=== PATIENT | female | born 1940 | race Caucasian/White ===

== ENCOUNTER → 2017-03-18 | Outpatient (CLI) | payer MEDICARE, SELFPAY | PROVIDERS: Visit Provider Nurse Practitioner Family | DX: K57.92 Diverticulitis of intestine, part unspecified, without perforation or abscess without bleeding (principal); Z45.2 Encounter for adjustment and management of vascular access device | CPT/HCPCS: 96365; J1335 ==

== ENCOUNTER → 2018-08-23 08:05 | Outpatient (CLI) | payer MEDICARE, SELFPAY ==
--- NOTE | 2018-08-23 | CA_ITS ---
PROCEDURE: 2-D M-mode and color Doppler study INDICATIONS FOR THE TEST: Chest pain COPD Heart Murmur Tobacco Smoking Palpitations+ Fatigue Syncope Edema Hypertension+Diabetes Mellitus Rheumatic Fever SOB+TYLER Obesity Hyperlipidemia+ Family History HD Additional History PATIENT INFORMATION HEIGHT:60 WEIGHT:135 GENDER: Female B/P:120/60 2-D/M-MODE INTERPRETATION: 2-D MEASUREMENTS OBSERVED VALUES IN CMS Right Ventricular Dimension (RVDd) 1.5 Interventricular Septum (Thickness)(IVsd) 1.6 Left Ventricular Internal Dimensions(LVIDd) 4.5 Left Ventricular Posterior Wall (Thickness)(LVPWd) 1.4 Aortic Root 3.3 Aortic Cusp Separation 1.6 Left Atrial Dimensions (LAD) 5.3 2D 1. Left atrium is moderately enlarged, left ventricle is normal size, there is moderate concentric left ventricular hypertrophy, there is mild asymmetric hypertrophy of the basal septum seen. There is hyperdynamic left ventricular systolic function, visually estimated ejection fraction of 60-65%, there is complete cavity obliteration during systole. 2. The right atrium and right ventricle are normal size and contractility. 3. The aortic valve is thickened and calcified leaflet continue to display mobility. 4. The mitral valve has mitral annular calcification, which extends and both anterior and posterior mitral leaflet, there appears to be mild systolic atrium motion of the mitral valve leaflets seen. 5. The tricuspid valve is grossly normal. 6. The pulmonic valve is poorly visualized. DOPPLER INTERROGATION: 1. The aortic out flow velocity is corrupted by mitral regurgitation segmental, there appears to be dynamic obstruction of the left ventricle outflow tract, the degree of obstruction cannot be calculated from this study adequately. There is moderate aortic insufficiency seen. 2. The mitral inflow velocities is within normal range, there is no significant mitral stenosis, there is mitral regurgitation which is difficult to quantify it is likely in severe range. 3. There is mild tricuspid regurgitation noted, tricuspid regurgitation jet velocity is inadequate for calculation of the right ventricular systolic pressure. 4. The diastolic parameters are inconclusive. CONCLUSION: 1. Moderately enlarged left atrium, normal left ventricular size, moderate concentric left ventricular hypertrophy, there is mild asymmetric hypertrophy of the basal septum seen, hyperdynamic left ventricular systolic function, visually estimated ejection fraction approximately 60-65% with no regional wall motion abnormality, there
--- NOTE | 2018-08-23 08:34 | XR_ITS ---
XR chest 2V HISTORY: ITS.REASON: SYNCOPE , HEART MURMUR ORDERING PHYSICIAN: Lm Bustillo MD PATIENT AGE: 78 years COMPARISON: 03/14/2017 FINDINGS: Mild cardiomegaly without failure. Lungs are clear of acute infiltrate. Slight increased density is present in the anterior clear space inferiorly and may be due to summation artifact from overlying fat pad. No acute bony findings. IMPRESSION: Cardiomegaly, no change with no acute finding.
[2018-08-23 08:35] LABS: Basophils # 0.1 K/mm3 (0-0.2); Basophils % 1.1 % (0.1-2.0); Eosinophils # 0.4 K/mm3 (0.0-0.4); Eosinophils % 6.7 % (0.1-12.0); Hematocrit 35.5 % (37.0-47.0); Lymphocytes % 37.8 % (10-50); Mean Corpuscular HGB Conc 33.8 g/dL (31.8-35.4); Mean Corpuscular Hemoglobin 30.6 pg (27.0-31.2); Mean Corpuscular Volume 90.5 fl (81-99); Mean Platelet Volume 7.1 fl (7.4-10.4); Monocytes # 0.5 K/mm3 (0.1-1.0); Monocytes % 8.9 % (1.7-9.3); Neutrophils # 2.4 K/mm3 (1.8-7.8); Neutrophils % 45.6 % (37.0-80.0); Platelet Count 269 K/mm3 (142-424); Red Blood Count 3.92 M/mm3 (4.20-5.40); Red Cell Distribution Width 14.4 % (11.5-17.5); White Blood Count 5.2 K/mm3 (4.8-10.8)
[2018-08-23 10:00] LABS: Alanine Aminotransferase 17 U/L (12-78); Albumin Level 3.4 gm/dL (3.4-5.0); Albumin/Globulin Ratio 0.8 (1.1-1.8); Alkaline Phosphatase 87 U/L (46-116); Anion Gap 14.6 mEq/L (5-15); Aspartate Amino Transferase 18 U/L (15-37); Bilirubin,Total 0.8 mg/dL (0.2-1.0); Blood Urea Nitrogen 25 mg/dL (7-18); Calcium 9.4 mg/dL (8.5-10.1); Carbon Dioxide 26 mmol/L (21.0-32.0); Chloride 105 mmol/L (98-107); Chol/HDL Ratio 3.6 (1-3.5); Cholesterol 254 mg/dL (140-200); Creatinine,Serum 0.83 mg/dL (0.55-1.02); Estimated Glomerular Filt Rate 67 ml/min (>60); Free Thyroxine Index 3.4 ug/dL (5.93-13.13); GFR (African American) 81 ML/MIN (>60); Globulin 4.2 gm/dl (1.3-3.2); Glucose 94 mg/dL (74-106); HDL Cholesterol 70 mg/dL (29-89); LDL Cholesterol 170 mg/dL (0-130); Magnesium 1.8 mg/dL (1.4-2.2); Potassium 3.6 mmoL/L (3.5-5.1); Sodium 142 mmol/L (136-145); T4 (Thyroxine) 9.6 ug/dl (4.7-13.3); Thyroid Stimulating Hormone 7.12 uIU/ml (0.358-3.740); Total Protein,Serum 7.6 gm/dL (6.4-8.2); Triglycerides 69 mg/dL (30-200); Triiodothryronine (T3) Uptake 35 % (31-39); VLDL Cholesterol 14 mg/dL (0-40)
== END ==
PROVIDERS: PCP Internal Medicine Adolescent Medicine; Visit Provider Internal Medicine Adolescent Medicine
DX: R55 Syncope and collapse (principal); R01.1 Cardiac murmur, unspecified; E78.5 Hyperlipidemia, unspecified; E03.9 Hypothyroidism, unspecified
CPT/HCPCS: 36415; 71046; 80053; 80061; 83735; 84436; 84443; 84479; 85025; 93306

== ENCOUNTER → 2018-09-10 20:04 | Outpatient (CLI) | payer MEDICARE, SELFPAY | LOC: SL 20:06 | PROVIDERS: PCP Internal Medicine Adolescent Medicine; Visit Provider Internal Medicine Cardiovascular Disease | DX: G47.33 Obstructive sleep apnea (adult) (pediatric) (principal); I10 Essential (primary) hypertension; R06.83 Snoring | CPT/HCPCS: 95810 ==

== ENCOUNTER → 2018-09-12 09:48 | Outpatient (CLI) | payer MEDICARE, SELFPAY | PROVIDERS: PCP Internal Medicine Adolescent Medicine; Visit Provider Internal Medicine Cardiovascular Disease | DX: E78.5 Hyperlipidemia, unspecified (principal); I10 Essential (primary) hypertension; I34.0 Nonrheumatic mitral (valve) insufficiency; I35.1 Nonrheumatic aortic (valve) insufficiency; R01.1 Cardiac murmur, unspecified; R06.09 Other forms of dyspnea; R55 Syncope and collapse; R93.1 Abnormal findings on diagnostic imaging of heart and coronary circulation; R94.31 Abnormal electrocardiogram [ECG] [EKG]; Z82.49 Family history of ischemic heart disease and other diseases of the circulatory system | CPT/HCPCS: 93225; 93226 ==

== ENCOUNTER → 2018-09-14 06:21 | Outpatient (CLI) | payer MEDICARE, SELFPAY ==
--- NOTE | 2018-09-14 06:23 | NM_ITS ---
NM ankush perf SPECT rest str CARDIOLITE SPECT MYOCARDIAL PERFUSION LEXISCAN, REST AND STRESS: History: Procedure: Electrocardiogram: Cardiac stress and resting SPECT images: Conclusion: 1. NM ankush perf SPECT rest str CARDIOLITE SPECT MYOCARDIAL PERFUSION LEXISCAN, REST AND STRESS: History: Hypertension, hyperlipidemia, family history, shortness of breath and fatigue Procedure: Patient received a 0.4 mg of intravenous Lexiscan, resting heart rate was 69 bpm resting blood pressure 180/78, with Lexiscan maximum heart rate achieved was 91 bpm is less than 85% of the maximum predicted heart rate and a blood pressure was 178/86. With Lexiscan no symptoms recorded Electrocardiogram: Resting electrocardiogram showed sinus rhythm inferior and lateral ST-T changes consider ischemia versus strain pattern, with Lexiscan less than 1.[address] segment depression noted from the baseline EKG, the EKG portion of the Lexiscan Myoview is nondiagnostic. Cardiac stress and resting SPECT images: Cardiac stress and resting SPECT images were obtained using technetium 99 Myoview 32.1 mCi at stress and 10.5 mCi at gated SPECT further analysis of segmental wall motion and calculation of the ejection fraction also done. Cardiac stress and resting SPECT images show uniform myocardial activity without segmental perfusion abnormality, computer derived ejection fraction is over 65% with no regional wall motion abnormality, right ventricle is normal size and contractility. Conclusion: 1. The EKG portion of the Lexiscan Myoview is nondiagnostic. 2. No scintigraphic evidence of reversible ischemia seen, right ejection fraction is over 65% with no regional wall motion abnormality, right ventricle is normal size and contractility. 3. Normal Lexiscan Myoview study.
== END ==
LOC: RAD 06:21
PROVIDERS: PCP Internal Medicine Adolescent Medicine; Visit Provider Internal Medicine Cardiovascular Disease
DX: E78.5 Hyperlipidemia, unspecified (principal); I10 Essential (primary) hypertension; I34.0 Nonrheumatic mitral (valve) insufficiency; I35.1 Nonrheumatic aortic (valve) insufficiency; R01.1 Cardiac murmur, unspecified; R06.09 Other forms of dyspnea; R55 Syncope and collapse; R93.1 Abnormal findings on diagnostic imaging of heart and coronary circulation; R94.31 Abnormal electrocardiogram [ECG] [EKG]; Z82.49 Family history of ischemic heart disease and other diseases of the circulatory system
CPT/HCPCS: 78452; 93017; A9502; J2785

== ENCOUNTER 2018-10-02 07:56 | Day surgery (SDC) | payer MEDICARE, SELFPAY ==
[2018-10-02] VITALS (10 sets, daily range): BP systolic 119–176; BP diastolic 48–93; PULSE 62–96; RESP 16–20; TEMP 36.4; O2SAT 94–100; BMI 26.5
[2018-10-02 08:34] LABS: Basophils # 0.1 K/mm3 (0-0.2); Basophils % 1.2 % (0.1-2.0); Eosinophils # 0.4 K/mm3 (0.0-0.4); Eosinophils % 7.5 % (0.1-12.0); Hematocrit 36.5 % (37.0-47.0); Hemoglobin 12.6 g/dL (12.2-16.2); Lymphocytes # 1.6 K/mm3 (0.7-4.5); Lymphocytes % 29.5 % (10-50); Mean Corpuscular HGB Conc 34.6 g/dL (31.8-35.4); Mean Corpuscular Hemoglobin 31.4 pg (27.0-31.2); Mean Corpuscular Volume 90.9 fl (81-99); Mean Platelet Volume 7.4 fl (7.4-10.4); Monocytes # 0.5 K/mm3 (0.1-1.0); Monocytes % 8.4 % (1.7-9.3); Neutrophils # 2.9 K/mm3 (1.8-7.8); Neutrophils % 53.3 % (37.0-80.0); Platelet Count 292 K/mm3 (142-424); Red Blood Count 4.02 M/mm3 (4.20-5.40); Red Cell Distribution Width 14.6 % (11.5-17.5); White Blood Count 5.4 K/mm3 (4.8-10.8)
[2018-10-02 08:38] LABS: Anion Gap 11.1 mEq/L (5-15); Blood Urea Nitrogen 13 mg/dL (7-18); Calcium 9.1 mg/dL (8.5-10.1); Carbon Dioxide 29 mmol/L (21.0-32.0); Chloride 102 mmol/L (98-107); Creatinine Clearance Estimated 46 mL/min (50-200); Creatinine,Serum 0.68 mg/dL (0.55-1.02); Estimated Glomerular Filt Rate 84 ml/min (>60); GFR (African American) 102 ML/MIN (>60); Glucose 100 mg/dL (74-106); Potassium 3.1 mmoL/L (3.5-5.1); Sodium 139 mmol/L (136-145)
--- NOTE | 2018-10-02 09:00 | IR_ITS ---
CARDIAC CATHETERIZATION DATE OF CATHETERIZATION:10/02/2018 11:04 AM PROCEDURES: 1. Right heart catheterization 2. Left heart catheterization 3. Left ventriculogram 4. Selective coronary angiogram INDICATION FOR TEST: 1. Severe mitral regurgitation 2. Preoperative evaluation for mitral valve repair 3. Coronary artery disease Informed consent was obtained prior to the procedure. COMPLICATIONS: None ESTIMATED BLOOD LOSS: Less than 10 ml. TECHNIQUE: One percent lidocaine was used to anesthetize the right anterior aspect of the right wrist. The right radial artery was accessed via the Seldinger technique and a 6 [place] hydrophilic sheath was placed in the right radial artery. Following this one percent lidocaine was used to anesthetize the right anterior aspect of the right neck. The right internal jugular vein was accessed via the Seldinger technique and a 7 [place] sheath was placed in the right internal jugular vein. Following this an arterial cocktail was administered using 5000U heparin, 2.5 mg verapamil, 1mg Lidocaine and 800mcg nitroglycerin into the right radial sheath. A trap catheter was used to perform left heart catheterization left ventriculogram and selective coronary angiography while a Ignacio-Sumeet catheter was used to perform right heart catheterization. Saturations were obtained in the pulmonary artery and right atrium. At the end of the procedure the arterial sheath was removed good hemostasis was achieved using Traclet band. Patient was transferred to the postop holding area in stable condition for venous sheath removal ANGIOGRAPHIC RESULTS: 1. The left main artery normal 2. The left anterior descending artery has proximal 10-20% stenoses and mid vessel 30-40% stenoses. 3. The circumflex artery is a dominant vessel and has proximal and mid vessel diffuse 20 and 30% stenoses throughout the main body of the circumflex artery. The second obtuse marginal artery has an ostial 50-60% stenosis and is 2.5 mm in diameter 4. The right coronary artery is a nondominant yet still large vessel and has a mid vessel 70-80% stenosis followed by additional 50% stenosis 5. The KIDD ventriculogram reveals slightly hyperdynamic at 70% 6. The left ventricular end-diastolic pressure 30 mmHg HEMODYNAMICS: Pulmonary artery occlusion pressure is 30 mm Hg. Pulmonary arterial pressure is 60/30 mm Hg. Right atrial pressure is 15 mm Hg. SATURATIONS: PA is 77 %. RA is 78 %. IMPRESSION: 1. Severe pulmonary hypertension as described above in the setting of severe mitral regurgitation 2. Moderate to severe stenosis and a 2.5 mm second obtuse marginal artery and severe stenosis in the mid nondominant yet still large right coronary artery 3. Hyperdynamic ejection fraction PLAN: 1. Patient requires surgical repair of the mitral valve. I will defer to the heart surgeon as to whether he feels vein grafting to the second OM and right coronary arteries clinically appropriate 2. Risk factor modification 3. Daily aspirin combined with high intensity statin
[2018-10-02 13:47] LABS: CATHL Arterial O2 SAT 77 % (90-100); CATHL Venous O2 SAT 78 % (75-80)
== END 2018-10-02 14:47 | disposition home or self-care (01) ==
PROVIDERS: PCP Internal Medicine Adolescent Medicine; Visit Provider Internal Medicine
DX: I34.0 Nonrheumatic mitral (valve) insufficiency (principal); I27.22 Pulmonary hypertension due to left heart disease; E78.2 Mixed hyperlipidemia; I10 Essential (primary) hypertension; R55 Syncope and collapse; R93.1 Abnormal findings on diagnostic imaging of heart and coronary circulation; R94.31 Abnormal electrocardiogram [ECG] [EKG]; Z82.49 Family history of ischemic heart disease and other diseases of the circulatory system; I25.10 Atherosclerotic heart disease of native coronary artery without angina pectoris; Z88.8 Allergy status to other drugs, medicaments and biological substances; Z79.899 Other long term (current) drug therapy
CPT/HCPCS: 80048; 82810; 85025; 93460; 99152; C1725; C1769; C1894; J1644; Q9967

== ENCOUNTER → 2018-11-27 09:20 | Outpatient (CLI) | payer MEDICARE, SELFPAY | PROVIDERS: Visit Provider Internal Medicine Adolescent Medicine | DX: S81.801A Unspecified open wound, right lower leg, initial encounter (principal) | CPT/HCPCS: 87070; 87077; 87186; 87205 ==

== ENCOUNTER → 2018-12-19 12:55 | Outpatient (CLI) | payer MEDICARE, SELFPAY ==
[2018-12-19 13:21] LABS: Anion Gap 8.8 mEq/L (5-15); Blood Urea Nitrogen 14 mg/dL (7-18); Calcium 8.5 mg/dL (8.5-10.1); Carbon Dioxide 31 mmol/L (21.0-32.0); Chloride 107 mmol/L (98-107); Creatinine,Serum 0.78 mg/dL (0.55-1.02); Estimated Glomerular Filt Rate 72 ml/min (>60); GFR (African American) 87 ML/MIN (>60); Glucose 120 mg/dL (74-106); Sodium 144 mmol/L (136-145)
[2018-12-19 13:52] LABS: Potassium 2.8 mmoL/L (3.5-5.1)
[2018-12-19 13:56] LABS: Basophils # 0.1 K/mm3 (0-0.2); Basophils % 0.9 % (0.1-2.0); Eosinophils # 0.3 K/mm3 (0.0-0.4); Eosinophils % 4.2 % (0.1-12.0); Hematocrit 35.2 % (37.0-47.0); Hemoglobin 10.5 g/dL (12.2-16.2); Lymphocytes # 1.7 K/mm3 (0.7-4.5); Lymphocytes % 26.9 % (10-50); Mean Corpuscular HGB Conc 29.7 g/dL (31.8-35.4); Mean Corpuscular Hemoglobin 27.5 pg (27.0-31.2); Mean Corpuscular Volume 92.3 fl (81-99); Monocytes # 0.7 K/mm3 (0.1-1.0); Monocytes % 10.3 % (1.7-9.3); Neutrophils # 3.6 K/mm3 (1.8-7.8); Neutrophils % 57.6 % (37.0-80.0); Platelet Count 306 K/mm3 (142-424); Red Blood Count 3.82 M/mm3 (4.20-5.40); Red Cell Distribution Width 17.4 % (11.5-17.5); White Blood Count 6.3 K/mm3 (4.8-10.8)
== END ==
PROVIDERS: Visit Provider Nurse Practitioner Family
DX: Z95.3 Presence of xenogenic heart valve (principal); I10 Essential (primary) hypertension; I27.20 Pulmonary hypertension, unspecified; I34.0 Nonrheumatic mitral (valve) insufficiency; Z86.79 Personal history of other diseases of the circulatory system; Z95.1 Presence of aortocoronary bypass graft; Z98.890 Other specified postprocedural states
CPT/HCPCS: 36415; 80048; 85025

== ENCOUNTER → 2018-12-21 08:16 | Outpatient (CLI) | payer MEDICARE, SELFPAY ==
[2018-12-21 11:03] LABS: Anion Gap 13.4 mEq/L (5-15); Blood Urea Nitrogen 16 mg/dL (7-18); Carbon Dioxide 28 mmol/L (21.0-32.0); Chloride 107 mmol/L (98-107); Estimated Glomerular Filt Rate 81 ml/min (>60); GFR (African American) 98 ML/MIN (>60); Glucose 89 mg/dL (74-106); Potassium 4.4 mmoL/L (3.5-5.1); Sodium 144 mmol/L (136-145)
== END ==
PROVIDERS: Visit Provider Nurse Practitioner Family
DX: E78.5 Hyperlipidemia, unspecified (principal); I10 Essential (primary) hypertension; I25.10 Atherosclerotic heart disease of native coronary artery without angina pectoris; I27.20 Pulmonary hypertension, unspecified; I34.0 Nonrheumatic mitral (valve) insufficiency; I35.1 Nonrheumatic aortic (valve) insufficiency; I42.1 Obstructive hypertrophic cardiomyopathy; Z86.79 Personal history of other diseases of the circulatory system; Z95.1 Presence of aortocoronary bypass graft; Z95.3 Presence of xenogenic heart valve; Z98.890 Other specified postprocedural states
CPT/HCPCS: 36415; 80048

== ENCOUNTER 2019-01-25 14:53 | Observation (INO) ==
[2019-01-25 16:28] LABS: Basophils # 0.1 K/mm3 (0-0.2); Basophils % 0.9 % (0.1-2.0); Eosinophils # 0.3 K/mm3 (0.0-0.4); Eosinophils % 5.2 % (0.1-12.0); Hematocrit 39.1 % (37.0-47.0); Hemoglobin 12.3 g/dL (12.2-16.2); Lymphocytes # 1.8 K/mm3 (0.7-4.5); Lymphocytes % 31.3 % (10-50); Mean Corpuscular HGB Conc 31.5 g/dL (31.8-35.4); Mean Corpuscular Volume 87.4 fl (81-99); Monocytes # 0.7 K/mm3 (0.1-1.0); Monocytes % 11.6 % (1.7-9.3); Platelet Count 247 K/mm3 (142-424); Red Blood Count 4.48 M/mm3 (4.20-5.40); Red Cell Distribution Width 17.9 % (11.5-17.5); White Blood Count 5.8 K/mm3 (4.8-10.8)
[2019-01-25 17:00] LABS: Alanine Aminotransferase 16 U/L (12-78); Albumin Level 2.8 gm/dL (3.4-5.0); Albumin/Globulin Ratio 0.6 (1.1-1.8); Alkaline Phosphatase 106 U/L (46-116); Anion Gap 10.6 mEq/L (5-15); Aspartate Amino Transferase 28 U/L (15-37); Bilirubin,Total 0.7 mg/dL (0.2-1.0); Blood Urea Nitrogen 17 mg/dL (7-18); Carbon Dioxide 31 mmol/L (21.0-32.0); Chloride 107 mmol/L (98-107); Chol/HDL Ratio 3.2 (1-3.5); Cholesterol 142 mg/dL (140-200); Glucose 87 mg/dL (74-106); HDL Cholesterol 45 mg/dL (29-89); LDL Cholesterol 86 mg/dL (0-130); Sodium 146 mmol/L (136-145); Total Protein,Serum 7.8 gm/dL (6.4-8.2); Triglycerides 55 mg/dL (30-200); VLDL Cholesterol 11 mg/dL (0-40)
[2019-01-25 17:02] LABS: Digoxin < 0.20 ng/mL (0.90-2.00)
[2019-01-26 00:47] LABS: Basophils # 0.1 K/mm3 (0-0.2); Basophils % 0.8 % (0.1-2.0); Eosinophils # 0.3 K/mm3 (0.0-0.4); Eosinophils % 4.9 % (0.1-12.0); Hematocrit 37.6 % (37.0-47.0); Hemoglobin 11.9 g/dL (12.2-16.2); Lymphocytes % 29.4 % (10-50); Mean Corpuscular HGB Conc 31.5 g/dL (31.8-35.4); Mean Corpuscular Volume 87.1 fl (81-99); Mean Platelet Volume 7.2 fl (7.4-10.4); Monocytes # 0.7 K/mm3 (0.1-1.0); Neutrophils # 3.6 K/mm3 (1.8-7.8); Neutrophils % 53.9 % (37.0-80.0); Platelet Count 228 K/mm3 (142-424); Red Blood Count 4.32 M/mm3 (4.20-5.40); Red Cell Distribution Width 18.1 % (11.5-17.5); White Blood Count 6.7 K/mm3 (4.8-10.8)
[2019-01-26 00:57] LABS: Anion Gap 11.8 mEq/L (5-15); Calcium 8.7 mg/dL (8.5-10.1)
--- NOTE | 2019-01-26 07:46 | H&P/Discharge Summary ---
General - General Admission date:: 01/25/19 Discharge date: 01/26/19 *Admission Date: 01/25/19 *Chief complaint: Mental status changes/confusion *History of present illness: 78-year-old white female with recent history of mitral valve replacement, chronic atrial flutter/fibrillation, chronic tachycardia and baseline memory loss with mild dementia, who presented to the office with her and son with a chief complaint of worsening mental status and some dyspnea. Concern was for possible urinary tract infection versus some cardiac event. Given patient's relative tachycardia that was new over baseline she was admitted to hospital for further diagnosis and lab testing. [facility] History I have reviewed the patient's past medical history: Yes Medical History: Reports:: Atrial Fibrillation, Heart Murmur, Hyperlipidemia, Hypertension, Valvular Heart Disease Denies:: Cancer, Diabetes Mellitus Type 1, Diabetes Mellitus Type 2, Internal Pacemaker, Lung Disease, MRSA, Seizures *Have you ever received a pneumonia vaccine?: No *Have you received a flu vaccine this season?: No Other Medical History: Reports: Hypothyroidism. Denies: Blood Transfusion Reaction Other Surgeries: Yes: Cardiac Catheterization, Cardiac Surgery, Cholecystectomy, Other Valve Replacement, Other (JULEE 2019). No: Pacemaker Amputation: No Fractures: No - *Social History Educational Level: Completed High School Smoking Status: Never smoker Alcohol Intake: never Substance Use Type: denies use *Occupational Status:: retired Housing: house Household Members: spouse *Travel in the last 8 weeks: None Family Hx:: Coronary Artery Disease, Heart Attack, Stroke Review of Systems - Review of Systems Review of systems:: pertinent systems reviewed and negative unless documented below - Constitutional Reports fatigue, Denies anorexia, Denies body ache(s) - Eyes Denies blind spots, Denies blurry vision, Denies change in vision - ENT Reports poor balance, Reports dizziness, Denies abnormal hearing - *Cardiovascular Reports shortness of breath, Reports irregular heart rhythm, Denies chest pain, Denies chest pain at rest, Denies leg swelling - *Respiratory Denies change in phlegm color, Denies chest congestion, Denies shortness of breath with activity, Denies excessive phlegm production - *Gastrointestinal Denies abdominal pain, Denies belching, Denies change in stools - *Genitourinary Denies abnormal vaginal bleeding - *Musculoskeletal Denies abnormal walking - Integumentary/Breasts Denies acne, Denies change in skin color, Denies changing lesions - *Neurologic Reports abnormal walking, Reports behavioral changes, Reports dizziness, Denies burning sensations, Denies unsteadiness - Psychiatric Reports memory loss, Denies abnormal sleep pattern, Denies hearing things others do not hear - Endocrine Reports rapid, pounding, or irregular heartbeat, Denies cold intolerance - Hematologic/Lymphatic Denies easy bleeding, Denies easy bruising - Allergic/Immunologic Denies GI upset with certain foods Exam Vital signs and Labs for Last 24 Hours: Temp Pulse Resp BP Pulse Ox 98.0 F 107 H 18 164/110 H 94 L 01/26/19 04:00 01/26/19 04:00 01/26/19 04:00 01/26/19 04:00 01/26/19 04:00 Laboratory Results - last 24 hr 01/25/19 16:00: WBC 5.8, RBC 4.48, Hgb 12.3, Hct 39.1, MCV 87.4, MCH 27.5, MCHC 31.5 L, RDW 17.9 H, Plt Count 247, MPV 7.0 L, Neut % (Auto) 51.0, Lymph % (Auto) 31.3, Floyd % (Auto) 11.6 H, Eos % (Auto) 5.2, Baso % (Auto) 0.9, Neut # (Auto) 3.0, Lymph # (Auto) 1.8, Floyd # (Auto) 0.7, Eos # (Auto) 0.3, Baso # (Auto) 0.1 01/25/19 16:00: Sodium 146 H, Potassium 2.6 L*, Chloride 107, Carbon Dioxide 31, Anion Gap 10.6, BUN 17, Creatinine 0.75, Estimated Creat Clear 44, Estimated GFR 75, Est GFR ( Amer) 91, Glucose 87, Calcium 9.0, Magnesium 1.7, Total Bilirubin 0.7, AST 28, ALT 16, Alkaline Phosphatase 106, Total Protein 7.8, Albumin 2.8 L, Globulin 5.0 H, Albumin/Globulin Ratio 0.6 L, Triglycerides 55, Cholesterol 142, LDL Cholesterol 86, VLDL Cholesterol 11, HDL Cholesterol 45, Cholesterol/HDL Ratio 3.2, TSH 0.30 L D, Digoxin < 0.20 L 01/25/19 16:00: Lactate 1.3 01/25/19 16:00: Troponin I 0.09 H 01/25/19 20:38: Troponin I 0.09 H 01/25/19 22:50: Troponin I 0.10 H 01/26/19 00:40: WBC 6.7, RBC 4.32, Hgb 11.9 L, Hct 37.6, MCV 87.1, MCH 27.4, MCHC 31.5 L, RDW 18.1 H, Plt Count 228, MPV 7.2 L, Neut % (Auto) 53.9, Lymph % (Auto) 29.4, Floyd % (Auto) 11.0 H, Eos % (Auto) 4.9, Baso % (Auto) 0.8, Neut # (Auto) 3.6, Lymph # (Auto) 2.0, Floyd # (Auto) 0.7, Eos # (Auto) 0.3, Baso # (Auto) 0.1 01/26/19 00:40: Sodium 145, Potassium 2.8 L*, Chloride 108 H, Carbon Dioxide 28, Anion Gap 11.8, BUN 17, Creatinine 0.63, Estimated Creat Clear 44, Estimated GFR 92, Est GFR ( Amer) 111 D, Glucose 82, Calcium 8.7 01/26/19 03:00: Urine Color Yellow, Urine Appearance Clear, Urine pH 7.5, Ur Specific Cable 1.015, Urine Protein Negative, Urine Glucose (UA) Negative, Urine Ketones Negative, Urine Blood Negative, Urine Nitrate Positive, Urine Bilirubin Negative, Urine Urobilinogen 1.0, Ur Leukocyte Esterase Negative, Urine WBC Occasional, Ur Squamous Epith Cells 5-10, Urine Bacteria Trace I & O for Last 24 hours: Intake & Output 01/23/19 01/24/19 01/25/19 01/26/19 11:59 11:59 11:59 11:59 Intake Total 597 / 597 Output Total 350 / 350 Balance 247 / 247 Weight 133 lb 3 oz Narrative: On admission patient was pleasant, talkative, somewhat confused about exact dates. Responsive to commands and questions. Globally weak. Heart rate in the 110 range, irregularity noted. Lungs clear, Abdomen soft and nontender. No edema or clubbing. Able to walk but with some dizziness. Oropharynx clear, no JVD, ENT exam otherwise clear. Hospital Course Hospital Course: Patient was admitted to the hospital: CT of head was negative for acute changes, chest x-ray negative for infiltrates. Urinalysis showed positive nitrates and bacteria. Culture pending. Blood cultures pending. Patient was found to have very low digoxin level and apparently has not been taking this medicine even though is been prescribed by CT surgery postoperatively and by cardiology and in their most recent office note cardiology thought she was taking this. She is also somewhat hypokalemic. Patient felt better this morning on examination after potassium replacement, low-dose IV fluids. Plan will be to send patient home with antibiotics, digoxin therapy, potassium replacement and I will see her in my office in 2 days with labs at that point. Will review labs, urine culture results and her other medications. Results Labs on day of discharge: Labs from last 24 hours 01/26/19 01/26/19 01/26/19 03:00 00:40 00:40 WBC 6.7 RBC 4.32 Hgb 11.9 L Hct 37.6 MCV 87.1 MCH 27.4 MCHC 31.5 L RDW 18.1 H Plt Count 228 MPV 7.2 L Neut % (Auto) 53.9 Lymph % (Auto) 29.4 Floyd % (Auto) 11.0 H Eos % (Auto) 4.9 Baso % (Auto) 0.8 Neut # (Auto) 3.6 Lymph # (Auto) 2.0 Floyd # (Auto) 0.7 Eos # (Auto) 0.3 Baso # (Auto) 0.1 Sodium 145 Potassium 2.8 L* Chloride 108 H Carbon Dioxide 28 Anion Gap 11.8 BUN 17 Creatinine 0.63 Estimated Creat Clear 44 Estimated GFR 92 Est GFR ( Amer) 111 D Glucose 82 Lactate Calcium 8.7 Magnesium Total Bilirubin AST ALT Alkaline Phosphatase Troponin I Total Protein Albumin Globulin Albumin/Globulin Ratio Triglycerides Cholesterol LDL Cholesterol VLDL Cholesterol HDL Cholesterol Cholesterol/HDL Ratio TSH Urine Color Yellow Urine Appearance Clear Urine pH 7.5 Ur Specific Cable 1.015 Urine Protein Negative Urine Glucose (UA) Negative Urine Ketones Negative Urine Blood Negative Urine Nitrate Positive Urine Bilirubin Negative Urine Urobilinogen 1.0 Ur Leukocyte Esterase Negative Urine WBC Occasional Ur Squamous Epith Cells 5-10 Urine Bacteria Trace Digoxin 01/25/19 01/25/19 01/25/19 22:50 20:38 16:00 WBC RBC Hgb Hct MCV MCH MCHC RDW Plt Count MPV Neut % (Auto) Lymph % (Auto) Floyd % (Auto) Eos % (Auto) Baso % (Auto) Neut # (Auto) Lymph # (Auto) Floyd # (Auto) Eos # (Auto) Baso # (Auto) Sodium Potassium Chloride Carbon Dioxide Anion Gap BUN Creatinine Estimated Creat Clear Estimated GFR Est GFR ( Amer) Glucose Lactate Calcium Magnesium Total Bilirubin AST ALT Alkaline Phosphatase Troponin I 0.10 H 0.09 H 0.09 H Total Protein Albumin Globulin Albumin/Globulin Ratio Triglycerides Cholesterol LDL Cholesterol VLDL Cholesterol HDL Cholesterol Cholesterol/HDL Ratio TSH Urine Color Urine Appearance Urine pH Ur Specific Cable Urine Protein Urine Glucose (UA) Urine Ketones Urine Blood Urine Nitrate Urine Bilirubin Urine Urobilinogen Ur Leukocyte Esterase Urine WBC Ur Squamous Epith Cells Urine Bacteria Digoxin 01/25/19 01/25/19 01/25/19 16:00 16:00 16:00 WBC 5.8 RBC 4.48 Hgb 12.3 Hct 39.1 MCV 87.4 MCH 27.5 MCHC 31.5 L RDW 17.9 H Plt Count 247 MPV 7.0 L Neut % (Auto) 51.0 Lymph % (Auto) 31.3 Floyd % (Auto) 11.6 H Eos % (Auto) 5.2 Baso % (Auto) 0.9 Neut # (Auto) 3.0 Lymph # (Auto) 1.8 Floyd # (Auto) 0.7 Eos # (Auto) 0.3 Baso # (Auto) 0.1 Sodium 146 H Potassium 2.6 L* Chloride 107 Carbon Dioxide 31 Anion Gap 10.6 BUN 17 Creatinine 0.75 Estimated Creat Clear 44 Estimated GFR 75 Est GFR ( Amer) 91 Glucose 87 Lactate 1.3 Calcium 9.0 Magnesium 1.7 Total Bilirubin 0.7 AST 28 ALT 16 Alkaline Phosphatase 106 Troponin I Total Protein 7.8 Albumin 2.8 L Globulin 5.0 H Albumin/Globulin Ratio 0.6 L Triglycerides 55 Cholesterol 142 LDL Cholesterol 86 VLDL Cholesterol 11 HDL Cholesterol 45 Cholesterol/HDL Ratio 3.2 TSH 0.30 L D Urine Color Urine Appearance Urine pH Ur Specific Cable Urine Protein Urine Glucose (UA) Urine Ketones Urine Blood Urine Nitrate Urine Bilirubin Urine Urobilinogen Ur Leukocyte Esterase Urine WBC Ur Squamous Epith Cells Urine Bacteria Digoxin < 0.20 L DS: Diagnosis - Discharge Diagnosis (1) Cystitis Status: Acute (2) Chronic atrial fibrillation with rapid ventricular response Status: Acute (3) Medical non-compliance Status: Acute (4) Hypokalemia Status: Acute Discharge Plan - Patient Discharge Instructions ACTIVITY: Continue current activity DIET: continue same diet Patient Instructions: Atrial Fibrillation, DI for Atrial Fibrillation, DI for Shortness of Breath - Follow up Plan Follow up with: Lm Bustillo MD [Primary Care Provider] - 01/28/19 2:00 pm Disposition: Home, Self-Fpc Medications: Home Medications Medication Instructions Recorded Confirmed Type cholecalciferol (vitamin D3) 1,000 1,000 unit PO DAILY 09/05/18 01/11/19 History unit capsule cyanocobalamin (vit B-12) 1,000 1,000 mcg PO DAILY 09/05/18 01/11/19 History mcg tablet ferrous sulfate 325 mg (65 mg 325 mg PO DAILY 09/05/18 01/11/19 History iron) tablet vitamin E (dl, acetate) 400 unit 400 unit PO DAILY 09/05/18 01/11/19 History capsule aspirin 81 mg chewable tablet 81 mg PO DAILY 09/06/18 01/11/19 History atorvastatin 80 mg tablet 40 mg PO DAILY tab 12/11/18 01/11/19 History levothyroxine 88 mcg tablet 25 mcg PO DAILY tab 12/11/18 01/11/19 History carvedilol 25 mg tablet 37.5 mg PO BID #90 tab 12/19/18 01/11/19 Rx amlodipine 5 mg tablet 5 mg PO DAILY #30 tab 01/11/19 01/11/19 Rx furosemide 20 mg tablet 20 mg PO DAILY #30 tab 01/11/19 01/11/19 Rx Cefdinir [Omnicef 300mg Capsule] 300 mg PO BID #14 cap 01/26/19 Rx Digoxin 125 mcg PO DAILY #30 tab 01/26/19 Rx Potassium Chloride [Klor-Con M20] 40 meq PO DAILY #4 tab 01/26/19 Rx Rivaroxaban [Xarelto 20mg Tablet] 20 mg PO QPM #30 tab 01/26/19 Rx Prescriptions/Medication Reconciliation: New Cefdinir [Omnicef 300mg Capsule] 300 mg PO BID #14 cap Continued cyanocobalamin (vit B-12) 1,000 mcg tablet 1,000 mcg PO DAILY cholecalciferol (vitamin D3) 1,000 unit capsule 1,000 unit PO DAILY aspirin 81 mg chewable tablet 81 mg PO DAILY carvedilol 25 mg tablet 37.5 mg PO BID #90 tab amlodipine 5 mg tablet 5 mg PO DAILY #30 tab furosemide 20 mg tablet 20 mg PO DAILY #30 tab ferrous sulfate 325 mg (65 mg iron) tablet 325 mg PO DAILY atorvastatin 80 mg tablet 40 mg PO DAILY tab levothyroxine 88 mcg tablet 25 mcg PO DAILY tab Rivaroxaban [Xarelto 20mg Tablet] 20 mg PO QPM #30 tab Digoxin 125 mcg PO DAILY #30 tab Potassium Chloride [Klor-Con M20] 40 meq PO DAILY #4 tab Discontinued vitamin E (dl, acetate) 400 unit capsule 400 unit PO DAILY - Problem Reconciliation Problems Reviewed?: Yes
== END 2019-01-26 08:53 | disposition home or self-care (01) ==
LOC: 2ND
PROVIDERS: ADMIT Internal Medicine Adolescent Medicine; ATTEND Internal Medicine Adolescent Medicine
CPT/HCPCS: 36415; 70450; 71020; 71046; 80048; 80053; 80061; 80162; 81001; 83605; 83735; 84443; 84484; 85025; 87040; 87086; 87088; G0378

== ENCOUNTER → 2019-01-28 08:32 | Outpatient (CLI) | payer MEDICARE, SELFPAY ==
[2019-01-28 09:03] LABS: Basophils % 0.7 % (0.1-2.0); Eosinophils # 0.4 K/mm3 (0.0-0.4); Eosinophils % 6.8 % (0.1-12.0); Hematocrit 38.3 % (37.0-47.0); Hemoglobin 11.8 g/dL (12.2-16.2); Lymphocytes # 1.4 K/mm3 (0.7-4.5); Lymphocytes % 25.8 % (10-50); Mean Corpuscular HGB Conc 30.7 g/dL (31.8-35.4); Mean Corpuscular Hemoglobin 27.3 pg (27.0-31.2); Mean Platelet Volume 7.4 fl (7.4-10.4); Monocytes # 0.6 K/mm3 (0.1-1.0); Monocytes % 11.2 % (1.7-9.3); Neutrophils # 3.1 K/mm3 (1.8-7.8); Neutrophils % 55.6 % (37.0-80.0); Platelet Count 218 K/mm3 (142-424); Red Blood Count 4.31 M/mm3 (4.20-5.40); Red Cell Distribution Width 18.4 % (11.5-17.5); White Blood Count 5.5 K/mm3 (4.8-10.8)
[2019-01-28 10:51] LABS: Anion Gap 10.1 mEq/L (5-15); Blood Urea Nitrogen 25 mg/dL (7-18); Calcium 8.9 mg/dL (8.5-10.1); Carbon Dioxide 31 mmol/L (21.0-32.0); Chloride 105 mmol/L (98-107); Creatinine,Serum 0.79 mg/dL (0.55-1.02); Estimated Glomerular Filt Rate 71 ml/min (>60); GFR (African American) 85 ML/MIN (>60); Glucose 91 mg/dL (74-106); Potassium 3.1 mmoL/L (3.5-5.1); Sodium 143 mmol/L (136-145)
[2019-01-28 11:00] LABS: Digoxin 2.05 ng/mL (0.90-2.00)
== END ==
PROVIDERS: Visit Provider Internal Medicine Adolescent Medicine
DX: I25.10 Atherosclerotic heart disease of native coronary artery without angina pectoris (principal)
CPT/HCPCS: 36415; 80048; 80162; 85025

== ENCOUNTER 2019-02-28 08:30 | Outpatient (RCR) | payer MEDICARE, SELFPAY ==
--- NOTE | 2018-11-27 09:54 | HMH.PTOPWND ---
Rehab Outpt Wound Evaluation Rehab OP Wound Evaluation Start: 11/27/18 08:01 Freq: Status: Active Protocol: Document 11/27/18 09:14 YEYO (Rec: 11/27/18 09:51 PHORGAEL [id number]) Electronically Signed By Ramon Hernandez, PT 11/27/18 09:14 Subjective/History History History Pt is 78 yowf who presents ~ 5 wks S/P mitral valve replacement with CABG x 3 using right LE vein graft. She now has open wound at the medial right sol at the distal end of the vein harvest site. She reports no pain, but tendernessin the swetha- wound area, especially the inferior portion. She also presents with mild edema throughout the right lower leg with worse edema in the left LE throughout. She reports no other significant PMH. Subjective Subjective Pt with no c/o pain at this time. Wound Eval Wound Right Medial Sol Wound Type Incision Is This a Chronic Wound Yes Wound Length (cm) 5.5 Wound Width (cm) 2.7 Wound Depth (cm) 1.0 Wound Bed Appearance Beefy Red,Yellow Percentage Granulated (%) 50 Percentage of Slough (%) 50 Wound Margins Description Well Defined Surrounding Tissue Appearance [place] Edema Type Pitting Edema Degree 1+ Query Text:1+ Trace, Barely Detectable, Rebound 15-30 seconds 2+ Moderate, Slight Indentation, Rebound 10-20 seconds 3+ Deep, Deeper Indentation, Rebound > 30 seconds 4+ Very Deep, Rebound > 60 seconds Edema Appearance Tight,Red Drainage Description Serosanguineous Drainage Amount Moderate Drainage Odor Slight Odor Wound Topical Solution/Irrigant Saline Irrigant Primary Dressing Silver Dressing Comment Opticell Ag x 4 Wound Secondary Dressing Type Composite,Gauze Roll/Wrap, Adhering Gauze Roll Wound Debridement Method Sharps,Forceps,Gauze Wound Debridement Amount of Tissue Minimal Removed Wound Debridement Result Necrotic Tissue Remains Dressing Change Patient Tolerance Tolerated Well Wound Problems/Impairments Impairments Problems/Impairmments Palpation Tenderness,Increased
--- NOTE | 2018-12-27 09:02 | HMH.RHREAS ---
Rehab Reassessment Rehab OP Re-assessment Start: 12/27/18 08:56 Freq: Status: Active Protocol: Document 12/27/18 08:58 YEYO (Rec: 12/27/18 09:01 YEYO [id number]) Electronically Signed By Ramon Hernandez, PT 12/27/18 08:58 Rehab Re-assessment Subjective Subjective Pt reports much less drainage and no c/o pain now. Objective Objective Notes Right sol wound: Length= 5.0 cm, Width= 2.7 cm, Depth= 0.4 cm. Assessment Progress Assessment Progressing as Expected Assessment Notes Significant increase in granulation tissue noted and much less depth to the wound. Patient goals met ST,2,3,4,5 Goals Not Met LT,2,3,4,5,6,7 Revised Goals none Plan Plan Continue per intial POC. Frequency of Therapy 2 x/wk Duration of therapy 8 wks Time and Billing Re-Eval Time 15 Re-Eval Billing Units 1 PHYSICIAN CERTIFICATION: I certify the specified therapy services for Ivy Ge are required, authorized, and reviewed every 30 days.
--- NOTE | 2019-01-31 08:34 | HMH.RHREAS ---
Rehab Reassessment Rehab OP Re-assessment Start: 12/27/18 08:56 Freq: Status: Active Protocol: Document 01/31/19 08:32 YEYO (Rec: 01/31/19 08:34 YEYO [id number]) Electronically Signed By Ramon Hernandez, PT 01/31/19 08:32 Rehab Re-assessment Subjective Subjective Pt reports no pain and only minimal tenderness to palpation in the swetha-wound area. Objective Objective Notes Right Young wound: Length= 4.0 cm, Width= 1.8 cm. Min/Mod serous drainage noted. Assessment Progress Assessment Progressing as Expected Assessment Notes No significant depth to the wound this date, continues to increase epithelial tissue. Patient goals met ST,2,3,4,5 Goals Not Met LT,2,3,4,5,6,7 Revised Goals none Plan Plan Continue per intial POC. Frequency of Therapy 2 x/wk Duration of therapy 8 wks Time and Billing Re-Eval Time 15 Re-Eval Billing Units 1 PHYSICIAN CERTIFICATION: I certify the specified therapy services for Ivy Ge are required, authorized, and reviewed every 30 days.
== END 2019-02-28 08:35 | disposition home or self-care (01) ==
LOC: PT 08:30
PROVIDERS: Visit Provider Internal Medicine Adolescent Medicine
DX: L03.115 Cellulitis of right lower limb (principal); I89.0 Lymphedema, not elsewhere classified
CPT/HCPCS: 97162; 97164; 97597

== ENCOUNTER → 2019-03-27 10:39 | Outpatient (CLI) | payer MEDICARE, SELFPAY ==
--- NOTE | 2019-03-27 10:43 | XR_ITS ---
PROCEDURE: XR CHEST 2V CLINICAL HISTORY: WHEEZING COMPARISON: CXR-PICC CHEST PORTABLE-PICC PLACEMENT from 03/14/2017 CXR2V XR chest 2V from 08/23/2018 XR CHEST 2V from 01/25/2019 FINDINGS: Prior sternotomy with aortic valve replacement. Cardiomegaly without failure. There is patchy density in the right lung base which may be due to an area of atelectasis or infiltrate. The remaining lungs are clear. No acute bony findings. IMPRESSION: Cardiomegaly with right basilar atelectasis or infiltrate Dictated by: Dami Alvarado MD 03/27/2019 11:12 Electronically signed by Dami Alvarado MD in [place] 03/27/2019 11:12
== END ==
PROVIDERS: PCP Internal Medicine Adolescent Medicine; Visit Provider Internal Medicine Adolescent Medicine
DX: I67.9 Cerebrovascular disease, unspecified (principal); R06.2 Wheezing
CPT/HCPCS: 71046

== ENCOUNTER → 2019-03-29 11:36 | Outpatient (CLI) | payer MEDICARE, SELFPAY ==
--- NOTE | 2019-03-29 11:39 | CA_ITS ---
APPROVED REPORT Chain Offbearer: PABLO Laterality: Bilateral Study Quality: Adequate Indications: Carotid stenosis Risk Factors Hypertension: Hyperlipidemia Doppler Spectral Velocity Analysis ECA (R) 113.10/8.00 cm/s dICA (L) 47.40/13.90 cm/s Promise (L) 60.90/9.40 cm/s dICA (R) 88.40/16.70 cm/s pICA (L) 56.90/11.40 cm/s Promise (R) 73.60/18.70 cm/s pICA (R) 67.60/13.40 cm/s dCCA (L) 34.50/6.40 cm/s pCCA (L) 61.30/7.40 cm/s dCCA (R) 65.80/11.80 cm/s pCCA (R) 72.70/9.60 cm/s Vert (L) 31.70/6.20 cm/s Vert (R) 40.20/8.00 cm/s ICA/CCA 1.76 ICA/CCA 1.34 Findings Duplex evaluation demonstrates stenosis of the right proximal internal carotid artery <20% with PSV <140 cm/sec, EDV <100 cm/sec, and IC/CC Ratio <4.0.Duplex evaluation demonstrates stenosis of the left proximal internal carotid artery <20% with PSV <140 cm/sec, EDV <100 cm/sec, and IC/CC Ratio <4.0.Antegrade flow seen bilateral vertebral arteries. Bilateral tortuous internal and external carotid arteries making this a difficult exam Conclusion No increased velocities to suggest hemodynamically significant stenosis in either internal carotid artery. Electronically signed by : Dami Alvarado MD 03/29/2019 18:30:29
== END ==
LOC: RT 11:37
PROVIDERS: PCP Internal Medicine Adolescent Medicine; Visit Provider Internal Medicine Adolescent Medicine
DX: I65.23 Occlusion and stenosis of bilateral carotid arteries (principal)
CPT/HCPCS: 93880

== ENCOUNTER 2019-06-05 12:17 | Outpatient (CLI) | payer MEDICARE, SELFPAY ==
[2019-06-05 12:25] VITALS: BMI 26.2
[2019-06-05 12:30] VITALS: BP 137/75; PULSE 64; RESP 18; TEMP 36.6; O2SAT 97
[2019-06-05 12:45] LABS: Basophils # 0.1 K/mm3 (0-0.2); Eosinophils # 0.3 K/mm3 (0.0-0.4); Eosinophils % 5.5 % (0.1-12.0); Hematocrit 43.7 % (37.0-47.0); Hemoglobin 14.2 g/dL (12.2-16.2); Lymphocytes # 1.5 K/mm3 (0.7-4.5); Lymphocytes % 27.1 % (10-50); Mean Corpuscular HGB Conc 32.4 g/dL (31.8-35.4); Mean Corpuscular Hemoglobin 30.7 pg (27.0-31.2); Mean Corpuscular Volume 94.7 fl (81-99); Mean Platelet Volume 8.1 fl (7.4-10.4); Monocytes # 0.6 K/mm3 (0.1-1.0); Monocytes % 10.8 % (1.7-9.3); Neutrophils # 3.1 K/mm3 (1.8-7.8); Neutrophils % 55.6 % (37.0-80.0); Platelet Count 230 K/mm3 (142-424); Red Blood Count 4.62 M/mm3 (4.20-5.40); Red Cell Distribution Width 15.3 % (11.5-17.5); White Blood Count 5.5 K/mm3 (4.8-10.8)
[2019-06-05 13:00] VITALS: BP 132/79; PULSE 69; RESP 18; O2SAT 98
[2019-06-05 13:10] LABS: Alanine Aminotransferase 16 U/L (12-78); Albumin Level 3.1 gm/dL (3.4-5.0); Albumin/Globulin Ratio 0.6 (1.1-1.8); Alkaline Phosphatase 123 U/L (46-116); Anion Gap 10.6 mEq/L (5-15); Bilirubin,Total 0.9 mg/dL (0.2-1.0); Blood Urea Nitrogen 14 mg/dL (7-18); Calcium 9.1 mg/dL (8.5-10.1); Carbon Dioxide 28 mmol/L (21.0-32.0); Chloride 108 mmol/L (98-107); Creatinine Clearance Estimated 45 mL/min (50-200); Creatinine,Serum 0.81 mg/dL (0.55-1.02); Estimated Glomerular Filt Rate 68 ml/min (>60); GFR (African American) 83 ML/MIN (>60); Glucose 87 mg/dL (74-106); Sodium 143 mmol/L (136-145); Thyroid Stimulating Hormone 6.55 uIU/ml (0.358-3.740); Total Protein,Serum 8.1 gm/dL (6.4-8.2)
[2019-06-05 13:15] LABS: Aspartate Amino Transferase 34 U/L (15-37); Potassium 3.6 mmoL/L (3.5-5.1)
[2019-06-05 13:30] VITALS: BP 144/81; PULSE 64; RESP 18; O2SAT 97
[2019-06-05 13:45] VITALS: BP 158/79; PULSE 68; RESP 18; O2SAT 97
[2019-06-05 14:35] LABS: Microscopic, Urine URINE MICROSCOPIC (MICROSCOPIC)
[2019-06-05 14:57] LABS: Appearance,Urine CLEAR (Clear); Bilirubin,Urine Negative (Negative); Blood, Urine Negative (Negative); Color,Urine YELLOW (Yellow); Glucose,Urine (UA) Negative (Negative); Ketones,Urine Negative (Negative); Leukocyte Esterase,Urine Negative (Negative); Nitrate,Urine Negative (Negative); Protein,Urine Negative (Negative)
[2019-06-05 15:10] LABS: Bacteria,Urine Trace /lpf; WBC,Urine Occasional #/hpf (0-3)
== END 2019-06-05 13:45 | disposition home or self-care (01) ==
PROVIDERS: PCP Internal Medicine Adolescent Medicine; Visit Provider Internal Medicine Adolescent Medicine
DX: R30.0 Dysuria (principal); Z79.899 Other long term (current) drug therapy
CPT/HCPCS: 80053; 81001; 84443; 85025; 96360

== ENCOUNTER → 2019-09-02 11:19 | Outpatient (CLI) | payer MEDICARE, SELFPAY ==
[2019-09-02 11:57] LABS: Basophils # 0.1 K/mm3 (0-0.2); Basophils % 1.6 % (0.1-2.0); Eosinophils # 0.3 K/mm3 (0.0-0.4); Eosinophils % 6.4 % (0.1-12.0); Hematocrit 40.2 % (37.0-47.0); Hemoglobin 12.9 g/dL (12.2-16.2); Lymphocytes # 1.5 K/mm3 (0.7-4.5); Mean Corpuscular Hemoglobin 30.8 pg (27.0-31.2); Mean Corpuscular Volume 96.3 fl (81-99); Mean Platelet Volume 7.8 fl (7.4-10.4); Monocytes # 0.4 K/mm3 (0.1-1.0); Monocytes % 7.9 % (1.7-9.3); Neutrophils # 2.6 K/mm3 (1.8-7.8); Neutrophils % 54.1 % (37.0-80.0); Platelet Count 200 K/mm3 (142-424); Red Blood Count 4.18 M/mm3 (4.20-5.40); Red Cell Distribution Width 14.6 % (11.5-17.5); White Blood Count 4.8 K/mm3 (4.8-10.8)
[2019-09-02 12:22] LABS: Alanine Aminotransferase 25 U/L (12-78); Albumin Level 3.8 g/dl (3.5-5.0); Alkaline Phosphatase 117 U/L (38-126); Anion Gap 6.6 mEq/L (5-15); Aspartate Amino Transferase 40 U/L (14-36); Bilirubin,Total 1.3 mg/dl (0.2-1.3); Blood Urea Nitrogen 18 mg/dl (7-17); Calcium 9.9 mg/dl (8.4-10.2); Carbon Dioxide 33 mmol/L (22.0-30.0); Chloride 106 mmol/L (98-107); Estimated Glomerular Filt Rate 97 ml/min (>60); GFR (African American) 117 ML/MIN (>60); Globulin 3.8 g/dL (1.3-3.2); Glucose 164 mg/dl (74-100); Potassium 4.6 mmoL/L (3.5-5.1); Sodium 141 mmol/L (136-145); Total Protein,Serum 7.6 g/dl (6.3-8.2)
[2019-09-02 12:27] LABS: Digoxin < 0.40 ng/ml (0.2-2.00)
[2019-09-02 12:39] LABS: Free Thyroxine Index 4.1 ug/dL (5.93-13.13); T4 (Thyroxine) 11.8 ug/dl (5.53-11.0); Triiodothryronine (T3) Uptake 35 % (23.5-40.5)
[2019-09-02 12:52] LABS: Thyroid Stimulating Hormone 5.42 uIU/mL (0.465-4.68)
[2019-09-03 06:58] LABS: Vitamin D 25 Hydroxy 26.8 ng/mL (30.0-100.0)
[2019-09-03 09:30] LABS: Vitamin B12 1209 pg/mL (232-1245)
== END ==
PROVIDERS: Visit Provider Internal Medicine Adolescent Medicine
DX: I25.10 Atherosclerotic heart disease of native coronary artery without angina pectoris (principal); E03.9 Hypothyroidism, unspecified; I35.0 Nonrheumatic aortic (valve) stenosis; R53.83 Other fatigue; E55.9 Vitamin D deficiency, unspecified
CPT/HCPCS: 36415; 80053; 80162; 82607; 82652; 84436; 84443; 84479; 85025

== ENCOUNTER → 2020-03-12 10:37 | Outpatient (CLI) | payer MEDICARE, SELFPAY ==
--- NOTE | 2020-03-12 10:42 | XR_ITS ---
PROCEDURE: XR LUMBAR SPINE MIN 4V CLINICAL INDICATION: USPECIFIED FALL, LOW BACK PAIN AT MUTIPLE SITES COMPARISON: CR XR CHEST 2V from 03/27/2019 FINDINGS: Minimal levocurvature of the lumbar spine. There is [id number] wedging of T12 which has developed since 03/27/2019. There is loss of height anteriorly 30 percent. There is generalized osteopenia with facet arthritic changes at L5-S1. Right-sided sacroiliac sclerosis is present with vacuum joint with air density in the joint space. The there is generalized vascular calcification. Other findings:None. IMPRESSION: 30 percent wedge compression change of T12 which has developed since 03/27/2019. MRI may provide further evaluation to determine the age of the fracture and to do evaluate for any retropulsion. Lumbar spondylosis as detailed above. 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
== END ==
LOC: RAD 10:40
PROVIDERS: PCP Internal Medicine Adolescent Medicine; Visit Provider Internal Medicine Adolescent Medicine
DX: M54.5 Low back pain (principal); W19.XXXA Unspecified fall, initial encounter
CPT/HCPCS: 72110

== ENCOUNTER 2020-04-12 13:11 | Emergency (ER) | payer MEDICARE, SELFPAY ==
[2020-04-12 13:28] VITALS: BP 129/58; PULSE 86; RESP 18; O2SAT 97; BMI 21.1
--- NOTE | 2020-04-12 13:41 | HMH.EDUTC ---
[facility] [place] Impression: Exposure to COVID-19 virus Disposition: Home, Self-Care Condition on Discharge: Good Instructions: Preventing the Spread of Coronavirus Discharge Instructions Additional Instructions: You have been tested for COVID19. These test results take 24-48 hours. Please isolate yourself as if you are negative until test results received. Referrals: Lm Bustillo MD [Primary Care Provider] - Time of Disposition: 13:44 Medical Decision Making - Raymond Inquiry Pt receiving controlled substance: No Vital Signs: 04/12/20 13:28 Pulse Rate [Radial] 86 Respiratory Rate 18 Blood Pressure [Right Arm] 129/58 L Blood Pressure Mean [Right Arm] 81 Blood Pressure Source [Right Arm] Automatic Cuff Blood Pressure Position [Right Arm] Sitting 02 Sat by Pulse Oximetry 97 Oxygen Delivery Method Room Air Orders (Tests/Meds): ORDERS Category Date Time Status Covid-19 Nasal PCR Sendout [facility] Stat Lab 04/12/20 13:24 [place] [facility] [place] - General Stated complaint: Covid exposure Time Seen by Provider: 04/12/20 13:41 Mode of Arrival: Ambulatory Source of Information: Patient Limitations: No Limitations Description of Symptoms (Recalled from Triage Doc. by RN): covid test HEENT Symptoms (Recalled from RN notes): No Resp Symptoms (Recalled from RN notes): No Skin Symptoms (Recalled from RN notes): No MS Symptoms (Recalled from RN notes): No Functional Status (Recalled from RN notes): wnl - History of Present Illness Provider Complaint: Daughter tested positive for COVID19 yesterday. She was last around her on the and she was masked, but they would still like to get tested. She denies symptoms at this time. Onset (ago): day(s) (1) Relieving factors: none Exacerbating factors: none Associated symptoms: denies other symptoms Treatments prior to arrival: none - Related Data Home Medications Medication Instructions Recorded Confirmed cholecalciferol (vitamin D3) 25 1,000 unit PO DAILY 09/05/18 06/05/19 mcg (1,000 unit) capsule cyanocobalamin (vitamin B-12) 1,000 mcg PO DAILY 09/05/18 06/05/19 1,000 mcg tablet ferrous sulfate 325 mg (65 mg 325 mg PO DAILY 09/05/18 06/05/19 iron) tablet aspirin 81 mg chewable tablet 81 mg PO DAILY 09/06/18 06/05/19 atorvastatin 80 mg tablet 40 mg PO DAILY tab 12/11/18 06/05/19 levothyroxine 88 mcg tablet 25 mcg PO DAILY tab 12/11/18 06/05/19 Amlodipine Besylate [Amlodipine 5 mg PO DAILY 06/05/19 06/05/19 5mg tab] Cefdinir [Omnicef 300mg Capsule] 300 mg PO BID 06/05/19 06/05/19 Digoxin 125 mcg PO DAILY 06/05/19 06/05/19 Potassium Chloride [Klor-Con M20] 40 meq PO DAILY 06/05/19 06/05/19 Rivaroxaban [Xarelto 20mg Tablet*] 20 mg PO QPM 06/05/19 06/05/19 carvediloL [Carvedilol 25mg Tab] 37.5 mg PO BID 06/05/19 06/05/19 Previous Rx's Medication Instructions Recorded furosemide 20 mg tablet 20 mg PO DAILY #30 tab 08/09/19 Allergies Allergy/AdvReac Type Severity Reaction Status Date / Time levofloxacin [From LEVAQUIN] Allergy Unknown Verified 01/11/19 10:54 - Worker's Comp Is this a Worker's Comp case?: No [facility] History - Hepatitis A Screen Drug use history?: No High risk sexual behaviors?: No History of sexually transmitted infection?: No Currently employed?: No Childcare worker?: No Do you have indoor plumbing?: Yes Do you have electricity?: Yes Attestation statement:: This patient has been screened for Hepatitis A risk factors. I have reviewed the patient's past medical history: Yes Medical History: Reports:: Atrial Fibrillation, Heart Murmur, Hyperlipidemia, Hypertension, Valvular Heart Disease Denies:: Cancer, Diabetes Mellitus Type 1, Diabetes Mellitus Type 2, Internal Pacemaker, Lung Disease, MRSA, Seizures Other Medical History: Reports: Hypothyroidism. Denies: Blood Transfusion Reaction Other Surgeries: Yes: Cardiac Catheterization, Cardiac Surgery, Cholecystectomy, Other Valve Replacement, Other (TE
[2020-04-12 14:11] VITALS: BP 129/58; PULSE 86; RESP 18; TEMP 36.7; O2SAT 97
[2020-04-13 10:04] LABS: Covid-19 Nasal PCR Sendout UK DETECTED
--- NOTE | 2020-04-13 11:49 | PC.NURSE ---
patient notified that she positive COVID
== END 2020-04-12 14:12 | disposition home or self-care (01) ==
PROVIDERS: Emergency Provider Physician Assistant; PCP Internal Medicine Adolescent Medicine
DX: U07.1 COVID-19 (principal); I48.20 Chronic atrial fibrillation, unspecified; E78.5 Hyperlipidemia, unspecified; I10 Essential (primary) hypertension; E03.9 Hypothyroidism, unspecified; Z88.1 Allergy status to other antibiotic agents; Z79.899 Other long term (current) drug therapy
CPT/HCPCS: G0463; 99201; U0003

== ENCOUNTER 2020-04-27 11:02 | Emergency (ER) | payer MEDICARE, SELFPAY ==
[2020-04-27] VITALS (7 sets, daily range): BP systolic 119–135; BP diastolic 57–75; PULSE 62–70; RESP 16–20; TEMP 36.7–36.8; O2SAT 57–98; BMI 24.6
[2020-04-27 11:45] LABS: Microscopic, Urine URINE MICROSCOPIC (MICROSCOPIC)
[2020-04-27 11:47] LABS: Appearance,Urine CLEAR (Clear); Bilirubin,Urine Negative (Negative); Blood, Urine Negative (Negative); Color,Urine YELLOW (Yellow); Glucose,Urine (UA) Negative (Negative); Ketones,Urine Negative (Negative); Leukocyte Esterase,Urine Negative (Negative); Nitrate,Urine Negative (Negative); PH,Urine 7.5 (5.0-8.5); Protein,Urine Negative (Negative); Specific Gravity, Urine 1.015 (1.005-1.030)
--- NOTE | 2020-04-27 12:13 | HMH.EDGENADL ---
ED Disposition Clinical Impression: Altered mental status Qualifiers: Altered mental status type: unspecified Qualified Code(s): R41.82 - Altered mental status, unspecified Disposition: Admitted As Inpatient Condition on Discharge: Fair - Critical Care Critical Care Time: No Attestation: On 04/27/20, the high probability of a clinically significant, sudden or life threatening deterioration of the following system(s) required my full and direct attention, intervention and personal management. The time I documented below is in addition to time spent performing reported procedures but includes the following listed in this critical care notation. Medical Decision Making - Medical Records Medical records reviewed: Yes: I reviewed the patient's medical records. - Raymond Inquiry Pt receiving controlled substance: No Vital Signs: 04/27/20 11:04 04/27/20 11:34 Temperature 98.0 F Temperature Source Oral Pulse Rate [Left Radial] 63 64 Respiratory Rate 19 20 Blood Pressure [Right Arm] 133/71 129/57 L Blood Pressure Mean [Right Arm] 91 81 Blood Pressure Source [Right Arm] Automatic Cuff Automatic Cuff Blood Pressure Position [Right Arm] Sitting Sitting 02 Sat by Pulse Oximetry 96 57 L Oxygen Delivery Method Room Air - Lab Data Lab Results 04/27/20 11:22: Urine Color Yellow, Urine Appearance Clear, Urine pH 7.5, Ur Specific [place] 1.015, Urine Protein Negative, Urine Glucose (UA) Negative, Urine Ketones Negative, Urine Blood Negative, Urine Nitrate Negative, Urine Bilirubin Negative, Urine Urobilinogen 1.0, Ur Leukocyte Esterase Negative, Urine WBC 3-5, Ur Squamous Epith Cells 3-5 04/27/20 11:35: WBC 5.5, RBC 4.81, Hgb 15.7, Hct 46.8, MCV 97.3, MCH 32.8 H, MCHC 33.7, RDW 14.1, Plt Count 188, MPV 8.5, Neut % (Auto) 62.2, Lymph % (Auto) 24.5, [place] % (Auto) 8.0, Eos % (Auto) 4.6, Baso % (Auto) 0.6, Neut # (Auto) 3.4, Lymph # (Auto) 1.3, [place] # (Auto) 0.4, Eos # (Auto) 0.3, Baso # (Auto) 0.0 04/27/20 11:35: Lactate 2.0 04/27/20 12:45: Sodium 140, Potassium 3.8, Chloride 109 H, Carbon Dioxide 26, Anion Gap 8.8, BUN 22 H, Creatinine 0.70, Estimated Creat Clear 41, Estimated GFR 81, Est GFR ( Amer) 98, Glucose 117 H, Calcium 9.9, Total Bilirubin 1.7 H, AST 50 H, ALT 27, Alkaline Phosphatase 179 H, Total Protein 8.2, Albumin 3.8, Globulin 4.4 H, Albumin/Globulin Ratio 0.9 L 04/27/20 12:45: Magnesium 1.7 Result diagrams: 04/27/20 11:35 04/27/20 12:45 Orders (Tests/Meds): ED MEDICATIONS Generic Name Dose Route Start Last Admin Trade Name Freq PRN Reason Stop Dose Admin Ceftriaxone Sodium 1 gm/ 50 mls @ 100 mls/hr 04/27/20 14:15 04/27/20 14:22 Sodium Chloride IV 05/11/20 14:14 100 mls/hr Q24H SARAH Administration Protocol ORDERS Category Date Time Status Covid-19 IgG/IgM ([facility]) Stat Lab 04/27/20 12:45 Received Magnesium Stat Lab 04/27/20 12:45 Results Thyroid Stimulating Hormone Stat Lab 04/27/20 12:45 Results Blood Culture Stat Micro 04/27/20 11:30 Received Urine Culture Stat Micro 04/27/20 11:30 Received Medical Decision Narrative: The patient is a 80 year old female with a history of CAD who presents to the ED with encephalopathy. She is awake, stable, neurologically intact however she is drowsy. Sitting up in a chair. Labs including CBC, CMP, UA were obtained and unremarkable. CT head and CXR does not show etiology of patients altered mental status. Discussed patient with Dr. Bustillo who agrees to admit the patient for further evaluation. Given ceftriaxone in the ED since patient is symptomatic. General Adult HPI - General Chief complaint: Altered Mental Status Stated complaint: possible uti, ams Time Seen by Provider: 04/27/20 11:04 Mode of Arrival: Ambulatory Limitations: No Limitations Description of Symptoms (Recalled from ER Triage Doc. by RN): c/o burning/itching for a few days. Daughter states that she has been more confused than her norm. Monday she was up cleaning
[2020-04-27 12:14] LABS: Basophils % 0.6 % (0.1-2.0); Eosinophils # 0.3 K/mm3 (0.0-0.4); Eosinophils % 4.6 % (0.1-12.0); Hematocrit 46.8 % (37.0-47.0); Hemoglobin 15.7 g/dL (12.2-16.2); Lymphocytes # 1.3 K/mm3 (0.7-4.5); Lymphocytes % 24.5 % (10-50); Mean Corpuscular HGB Conc 33.7 g/dL (31.8-35.4); Mean Corpuscular Hemoglobin 32.8 pg (27.0-31.2); Mean Corpuscular Volume 97.3 fl (81-99); Mean Platelet Volume 8.5 fl (7.4-10.4); Monocytes # 0.4 K/mm3 (0.1-1.0); Neutrophils # 3.4 K/mm3 (1.8-7.8); Neutrophils % 62.2 % (37.0-80.0); Platelet Count 188 K/mm3 (142-424); Red Blood Count 4.81 M/mm3 (4.20-5.40); Red Cell Distribution Width 14.1 % (11.5-17.5); White Blood Count 5.5 K/mm3 (4.8-10.8)
--- NOTE | 2020-04-27 12:27 | CT_ITS ---
PROCEDURE: CT HEAD/BRAIN WO CON CLINICAL INDICATION: ams Altered mental status, altered level of consciousness, confusion, disorientation COMPARISON: CT CT HEAD/BRAIN WO CON from 01/25/2019 TECHNIQUE: Axial images obtained. All CT scans at the facility use one or more dose reduction, viz: automated exposure control, ma/kV adjustment per patient size (including targeted exams where dose is matched to indication, i.e. head), or iterative reconstruction technique. FINDINGS: No midline shift, mass effect, intracranial hemorrhage, hydrocephalus, or extra-axial fluid collection is evident. There is generalized atrophy with hypoattenuation of the periventricular white matter consistent with microangiopathic changes. The calvarium has an unremarkable appearance. No mastoid effusion. No sinus air-fluid level. IMPRESSION: No acute intracranial finding Dictated by: Dami Alvarado MD 04/27/2020 13:19 Dami Alvarado MD in [place] 04/27/2020 13:19
--- NOTE | 2020-04-27 12:27 | XR_ITS ---
PROCEDURE: XR CHEST 2V CLINICAL HISTORY: cough COMPARISON: CR CXR2V XR chest 2V from 08/23/2018 DX XR CHEST 2V from 01/25/2019 CR XR CHEST 2V from 03/27/2019 CR XR LUMBAR SPINE MIN 4V from 03/12/[address] HEAD/BRAIN WO CON from 04/27/2020 FINDINGS: Cardiomegaly. Prior aortic valve replacement. No CHF. Lungs are clear. There is moderate wedging involving the T11 vertebral body which appears slightly progressed since 03/12/2020 lumbar spine. IMPRESSION: Cardiomegaly. Slight increase wedging of T11 Dictated by: Dami Alvarado MD 04/27/2020 13:21 Dami Alvarado MD in [place] 04/27/2020 13:21
[2020-04-27 13:04] LABS: Chloride 109 mmol/L (98-107); Potassium 3.8 mmoL/L (3.5-5.1); Sodium 140 mmol/L (136-145)
[2020-04-27 13:06] LABS: Blood Urea Nitrogen 22 mg/dl (7-17)
[2020-04-27 13:07] LABS: Alanine Aminotransferase 27 U/L (12-78); Albumin Level 3.8 g/dl (3.5-5.0); Albumin/Globulin Ratio 0.9 (1.1-1.8); Alkaline Phosphatase 179 U/L (38-126); Anion Gap 8.8 mEq/L (5-15); Aspartate Amino Transferase 50 U/L (14-36); Bilirubin,Total 1.7 mg/dl (0.2-1.3); Carbon Dioxide 26 mmol/L (22.0-30.0); Creatinine Clearance Estimated 41 mL/min (50-200); Estimated Glomerular Filt Rate 81 ml/min (>60); GFR (African American) 98 ML/MIN (>60); Globulin 4.4 g/dL (1.3-3.2); Total Protein,Serum 8.2 g/dl (6.3-8.2)
[2020-04-27 13:08] LABS: Calcium 9.9 mg/dl (8.4-10.2); Glucose 117 mg/dl (74-100)
--- NOTE | 2020-04-27 14:13 | PC.NURSE ---
speaking with Dr. Bustillo
--- NOTE | 2020-04-27 14:13 | PC.NURSE ---
Notified care management of admission
[2020-04-27 14:30] LABS: Magnesium 1.7 mg/dl (1.6-2.3)
[2020-04-27 14:48] LABS: Coronavirus 19 IgG Antibody Positive (Negative); Coronavirus 19 IgM Antibody Positive (Negative)
[2020-04-27 15:01] LABS: Thyroid Stimulating Hormone 3.91 uIU/mL (0.465-4.68)
--- NOTE | 2020-04-27 15:11 | PC.NURSE ---
COVID swab sent for admission
[2020-04-27 15:19] LABS: Adenovirus,PCR Not Detected (NotDetected); Bordetella Pertussis Not Detected (NotDetected); Chlamydophila Pneumoniae, PCR Not Detected (NotDetected); Coronavirus 229E Not Detected (NotDetected); Coronavirus NL63 Not Detected (NotDetected); Coronavirus OC43 Not Detected (NotDetected); Coronovirus HKU1,PCR Not Detected (NotDetected); Human Metapneumovirus Not Detected (NotDetected); Influenza A, PCR Not Detected (NotDetected); Influenza AH1, 2009 Not Detected (NotDetected); Influenza AH1, PCR Not Detected (NotDetected); Influenza AH3,PCR Not Detected (NotDetected); Influenza B, PCR Not Detected (NotDetected); Mycoplasma Pneumoniae, PCR Not Detected (NotDetected); Parainfluenza 1, PCR Not Detected (NotDetected); Parainfluenza 2, PCR Not Detected (NotDetected); Parainfluenza 3, PCR Not Detected (NotDetected); Parainfluenza 4, PCR Not Detected (NotDetected); Respiratory Syncytial Virus Not Detected (NotDetected); Rhinovirus/Enterovirus Not Detected (NotDetected)
--- NOTE | 2020-04-27 16:12 | PC.NURSE ---
Called lab to check on status on covid swab and advised by lab that it would be a while before pt swab was run because they were running QC and then had a patient on the floor whose needed to be run.
--- NOTE | 2020-04-27 16:25 | PC.NURSE ---
PT daughter states that pt is better since she got her antibiotic and has made a huge improvement. They dont want to go to the covid unit and since her mother has improved they are wanting to go home with some home antibiotics and follow up with in the morning. Daughter states that she is aware of her mother and if she declines she will bring the pt back to the ER for further evaluation. Pt is more coherent and able to respond more briskly than more. MD aware and following up with
[2020-04-27 21:25] LABS: Coronavirus 19, PCR Detected (NotDetected)
--- NOTE | 2020-04-27 21:25 | PC.NURSE ---
Positive COVID result called from lab Dr Odonnell aware Will F/U with pt in AM
--- NOTE | 2020-04-28 10:34 | PC.NURSE ---
Notified daughter of positive covid results.
== END 2020-04-27 16:56 | disposition home or self-care (01) ==
LOC: ER 11:17 → 2ND 14:25
PROVIDERS: Emergency Provider Emergency Medicine; PCP Internal Medicine Adolescent Medicine
DX: U07.1 COVID-19 (principal); R41.82 Altered mental status, unspecified; I25.10 Atherosclerotic heart disease of native coronary artery without angina pectoris; E78.5 Hyperlipidemia, unspecified; I48.20 Chronic atrial fibrillation, unspecified; I10 Essential (primary) hypertension; E03.9 Hypothyroidism, unspecified; Z79.899 Other long term (current) drug therapy; Z01.84 Encounter for antibody response examination
CPT/HCPCS: 36415; 70450; 71046; 80053; 81001; 83605; 83735; 84443; 85025; 86328; 87040; 87086; 87581; 87633; 87798; 96374; 99284; U0003

== ENCOUNTER → 2020-07-07 08:14 | Outpatient (CLI) | payer MEDICARE, SELFPAY ==
[2020-07-07 08:22] LABS: Microscopic, Urine URINE MICROSCOPIC (MICROSCOPIC)
[2020-07-07 08:43] LABS: Appearance,Urine CLEAR (Clear); Bilirubin,Urine Negative (Negative); Blood, Urine Negative (Negative); Color,Urine YELLOW (Yellow); Glucose,Urine (UA) Negative (Negative); Ketones,Urine Negative (Negative); Leukocyte Esterase,Urine 2+ (Negative); Nitrate,Urine Negative (Negative); Protein,Urine Negative (Negative)
[2020-07-07 08:58] LABS: Basophils # 0.1 K/mm3 (0-0.2); Basophils % 1.3 % (0.1-2.0); Eosinophils # 0.4 K/mm3 (0.0-0.4); Eosinophils % 7.5 % (0.1-12.0); Hematocrit 42.2 % (37.0-47.0); Lymphocytes # 1.6 K/mm3 (0.7-4.5); Lymphocytes % 30.2 % (10-50); Mean Corpuscular HGB Conc 33.2 g/dL (31.8-35.4); Mean Corpuscular Hemoglobin 32.4 pg (27.0-31.2); Mean Corpuscular Volume 97.5 fl (81-99); Mean Platelet Volume 8.3 fl (7.4-10.4); Monocytes # 0.5 K/mm3 (0.1-1.0); Neutrophils # 2.8 K/mm3 (1.8-7.8); Platelet Count 181 K/mm3 (142-424); Red Blood Count 4.33 M/mm3 (4.20-5.40); Red Cell Distribution Width 14.5 % (11.5-17.5); White Blood Count 5.4 K/mm3 (4.8-10.8)
[2020-07-07 09:00] LABS: RBC,Urine Occasional #/hpf (0-3)
[2020-07-07 09:01] LABS: Bacteria,Urine 1+ /lpf
[2020-07-07 09:19] LABS: Chloride 109 mmol/L (98-107); Sodium 143 mmol/L (136-145)
[2020-07-07 09:20] LABS: Potassium 4.5 mmoL/L (3.5-5.1)
[2020-07-07 09:22] LABS: Alanine Aminotransferase 21 U/L (12-78); Albumin/Globulin Ratio 0.9 (1.1-1.8); Alkaline Phosphatase 150 U/L (38-126); Anion Gap 8.5 mEq/L (5-15); Aspartate Amino Transferase 38 U/L (14-36); Bilirubin,Total 1.7 mg/dl (0.2-1.3); Blood Urea Nitrogen 27 mg/dl (7-17); Carbon Dioxide 30 mmol/L (22.0-30.0); Estimated Glomerular Filt Rate 81 ml/min (>60); GFR (African American) 98 ML/MIN (>60); Globulin 4.3 g/dL (1.3-3.2); Total Protein,Serum 8.3 g/dl (6.3-8.2)
[2020-07-07 09:23] LABS: Calcium 9.9 mg/dl (8.4-10.2); Glucose 107 mg/dl (74-100)
[2020-07-07 09:50] LABS: Thyroid Stimulating Hormone 2.47 uIU/mL (0.465-4.68)
== END ==
PROVIDERS: Visit Provider Internal Medicine Adolescent Medicine
DX: R30.0 Dysuria (principal); E03.9 Hypothyroidism, unspecified
CPT/HCPCS: 36415; 80053; 81001; 84443; 85025; 87086

== ENCOUNTER → 2020-07-13 13:33 | Outpatient (CLI) | payer MEDICARE, SELFPAY ==
--- NOTE | 2020-07-13 13:48 | MR_ITS ---
PROCEDURE: MR HEAD/BRAIN WO CON CLINICAL INDICATION: SPELL OF ALTERED CONSCIOUSNESS Episodes of zoning out xyrs. Some blurred vision. COMPARISON: MR BRW/O MRI-BRAIN W/O from 12/08/[address] HEAD/BRAIN WO CON from 04/27/2020 TECHNIQUE: Routine multiplanar multi echo sequences are performed without gadolinium enhancement. FINDINGS: No midline shift, mass effect, intracranial hemorrhage, or hydrocephalus is evident. No evidence of acute infarction. Scattered periventricular and subcortical T2 white matter hyperintensities are present consistent with ischemic gliotic change from microvascular disease. These findings have progressed since 12/08/2016exam exam. The corpus callosum, pituitary, optic chiasm, and craniocervical junction have an unremarkable appearance. No mastoid effusion or sinus air-fluid level. IMPRESSION: 1. No acute intracranial findings. 2. Diffuse periventricular and subcortical T2 white matter hyperintensity consistent with ischemic gliotic change from microvascular disease which has progressed compared to the previous exam. Dictated by: Dami Alvarado MD 07/14/2020 13:30 Dami Alvarado MD in [place] 07/14/2020 13:30
--- NOTE | 2020-07-13 14:17 | CA_ITS ---
APPROVED REPORT Operations Team Leader: Mindy Woodard RVT Laterality: Bilateral Study Quality: Good Indications: PATI,COGNITIVE IMPAIRMENT Risk Factors Hypertension: Hyperlipidemia Doppler Spectral Velocity Analysis ECA (R) 71.90/9.60 cm/s ECA (L) 80.90/14.10 cm/s dICA (R) 95.70/21.80 cm/s dICA (L) 74.50/18.00 cm/s Promise (R) 79.00/19.30 cm/s Promise (L) 72.60/18.00 cm/s pICA (R) 84.80/16.10 cm/s pICA (L) 60.40/13.50 cm/s dCCA (R) 57.10/15.40 cm/s dCCA (L) 59.10/14.80 cm/s pCCA (R) 78.00/8.60 cm/s pCCA (L) 62.30/12.20 cm/s ICA/CCA 1.67 Vert (L) 52.00/15.40 cm/s ICA/CCA 1.26 Findings Study suggests less than 20% stenosis of the right intrnal cartoid artery. Study suggests less than 20% stenosis of the left internal cartoid artery. Antegrade flow seen bilateral vertebral arteries. Conclusion Study suggests less than 20% stenosis of the right intrnal cartoid artery. Study suggests less than 20% stenosis of the left internal cartoid artery. Antegrade flow seen bilateral vertebral arteries. Electronically signed by : Dami Alvarado MD 07/13/2020 16:49:16
== END ==
LOC: RAD 13:35
PROVIDERS: PCP Internal Medicine Adolescent Medicine; Visit Provider Internal Medicine Adolescent Medicine
DX: G31.84 Mild cognitive impairment of uncertain or unknown etiology (principal); R40.4 Transient alteration of awareness; R09.89 Other specified symptoms and signs involving the circulatory and respiratory systems
CPT/HCPCS: 70551; 93880

== ENCOUNTER 2021-05-17 18:47 | Inpatient (IN) | payer MEDICARE, SELFPAY ==
[2021-05-17] VITALS (10 sets, daily range): BP systolic 111–142; BP diastolic 55–72; PULSE 64–90; RESP 20–28; TEMP 36.7–38; O2SAT 84–95; BMI 28.0
--- NOTE | 2021-05-17 19:09 | ECG_ITS ---
APPROVED REPORT Exam: Resting ECG HR:77 bpm ECG Measurements Heart Rate 77 AXES CA P 83 QRSd 144 QRS 41 QT 504 T 48 QTc 570 Conclusion Atrial flutter with variable AV block with premature ventricular or aberrantly conducted complexes Left bundle branch block Abnormal ECG Electronically signed by : Lm Bustillo MD 05/21/2021 14:38:28
[2021-05-17 19:16] LABS: Coronavirus 19, PCR Not Detected (NotDetected); Influenza A, PCR Not Detected (NotDetected); Influenza B, PCR Not Detected (NotDetected)
--- NOTE | 2021-05-17 19:17 | HMH.EDGENADL ---
ED Disposition <Leonor Barreto - Last Filed: 05/17/21 20:03> Condition on Discharge: Fair - Critical Care Critical Care Time: No <Ben Farnsworth - Last Filed: 05/17/21 22:07> Clinical Impression: Pneumonia, Acute respiratory failure with hypoxia Disposition: Admitted As Inpatient Referrals: Lm Bustillo MD [Primary Care Provider] - Attestation: On 05/17/21, the high probability of a clinically significant, sudden or life threatening deterioration of the following system(s) required my full and direct attention, intervention and personal management. The time I documented below is in addition to time spent performing reported procedures but includes the following listed in this critical care notation. Medical Decision Making - Medical Records Medical records reviewed: Yes: I reviewed the patient's medical records. - Raymond Inquiry Pt receiving controlled substance: No - Lab Data Result diagrams: 05/17/21 19:27 05/17/21 19:27 <Mono Barretoana - Last Filed: 05/17/21 20:03> - Lab Data Result diagrams: 05/17/21 19:27 05/17/21 19:27 <Ben Farnsworth - Last Filed: 05/17/21 22:07> Vital Signs: 05/17/21 18:48 05/17/21 19:30 05/17/21 20:00 Temperature 98.4 F Temperature Source Oral Pulse Rate 69 69 Pulse Rate [Right Radial] 74 Respiratory Rate 28 H 26 H 22 Blood Pressure 126/64 128/55 L Blood Pressure [Right Arm] 132/61 Blood Pressure Mean [Right Arm] 84 Blood Pressure Source [Right Arm] Automatic Cuff Blood Pressure Position [Right Arm] Sitting 02 Sat by Pulse Oximetry 84 L 94 L 91 L Oxygen Delivery Method Room Air Nasal Cannula Nasal Cannula Oxygen Flow Rate (LPM) 2 2 05/17/21 21:30 Temperature Temperature Source Pulse Rate 78 Pulse Rate [Right Radial] Respiratory Rate 22 Blood Pressure 127/71 Blood Pressure [Right Arm] Blood Pressure Mean [Right Arm] Blood Pressure Source [Right Arm] Blood Pressure Position [Right Arm] 02 Sat by Pulse Oximetry 92 L Oxygen Delivery Method Nasal Cannula Oxygen Flow Rate (LPM) 2 - Lab Data Lab Results 05/17/21 19:15: SARS-CoV-2 (PCR) Not detected, Influenza A Untype (PCR) Not detected, Influenza Type B (PCR) Not detected 05/17/21 19:27: WBC 12.6 H, RBC 4.09 L, Hgb 12.7, Hct 39.6, MCV 96.7, MCH 31.1, MCHC 32.2, RDW 14.2, Plt Count 189, MPV 9.0, Neut % (Auto) 82.7 H, Lymph % (Auto) 6.1 L, [place] % (Auto) 9.1, Eos % (Auto) 0.2, Baso % (Auto) 1.9, Neut # (Auto) 10.4 H, Lymph # (Auto) 0.8, [place] # (Auto) 1.2 H, Eos # (Auto) 0.0, Baso # (Auto) 0.3 H 05/17/21 19:27: Sodium 133 L, Potassium 3.4 L, Chloride 95 L, Carbon Dioxide 34 H, Anion Gap 7.4, BUN 28 H, Creatinine 0.90, Estimated Creat Clear 45, Estimated GFR 60, Est GFR ( Amer) 73, Glucose 143 H, Calcium 8.8, Troponin I 0.05 H, C-Reactive Protein 159.9 H 05/17/21 19:27: D-Dimer 1.24 H 05/17/21 19:27: Magnesium 1.9, NT-Pro-B Natriuret Pep 3550 H Orders (Tests/Meds): ED MEDICATIONS Generic Name Dose Route Start Last Admin Trade Name Freq PRN Reason Stop Dose Admin Acetaminophen 650 mg 05/17/21 21:52 Acetaminophen 325mg Tab PO 06/16/21 21:51 Q4HP PRN Fever or Mild Pain Docusate Sodium 100 mg 05/18/21 09:00 Docusate Sodium 100 Mg Capsule PO 06/17/21 08:59 DAILY SARAH Ampicillin Sodium/Sulbactam 100 mls @ 200 mls/hr 05/17/21 21:45 05/17/21 21:42 Sodium 3 gm/ Sodium Chloride IV 05/31/21 21:44 200 mls/hr Q6H SARAH Administration Ondansetron HCl 4 mg 05/17/21 21:52 Ondansetron 4mg/2ml Vial IV 06/16/21 21:51 Q8HP PRN Nausea Discontinued Medications Generic Name Dose Route Start Last Admin Trade Name Freq PRN Reason Stop Dose Admin Albuterol/Ipratropium 3 ml 05/17/21 19:14 05/17/21 19:18 Ipratropium/Albuterol 3 Ml Neb 05/17/21 19:15 3 ml ONCE ONE Administration Albuterol/Ipratropium 3 ml 05/17/21 19:14 05/17/21 19:19 Ipratropium/Albuterol 3 Ml Neb 05/17/21 19:15 3 ml ONCE ONE A
--- NOTE | 2021-05-17 19:24 | XR_ITS ---
PROCEDURE INFORMATION: Exam: XR Chest Exam date and time: 05/17/2021 7:24 PM Age: 81 years old Clinical indication: Shortness of breath; Additional info: Stat TECHNIQUE: Imaging protocol: XR of the chest. Views: 1 view. COMPARISON: CR XR CHEST 2V 04/27/2020 12:58 PM FINDINGS: Lungs: Persistent streaky opacities at the left lung base. Consolidation within the right mid lung. Pleural spaces: No pneumothorax. Heart/Mediastinum: Stable cardiomegaly. Bones/joints: Broken median sternotomy wires along the upper chest. Degenerative changes of the shoulders. IMPRESSION: Consolidation within the right mid lung which is nonspecific but may be secondary to pneumonia. Continued follow-up to radiographic clearance is recommended.
[2021-05-17 19:34] LABS: Basophils # 0.3 K/mm3 (0-0.2); Basophils % 1.9 % (0.1-2.0); Eosinophils % 0.2 % (0.1-12.0); Hematocrit 39.6 % (37.0-47.0); Hemoglobin 12.7 g/dL (12.2-16.2); Lymphocytes # 0.8 K/mm3 (0.7-4.5); Lymphocytes % 6.1 % (10-50); Mean Corpuscular HGB Conc 32.2 g/dL (31.8-35.4); Mean Corpuscular Hemoglobin 31.1 pg (27.0-31.2); Mean Corpuscular Volume 96.7 fl (81-99); Monocytes # 1.2 K/mm3 (0.1-1.0); Monocytes % 9.1 % (1.7-9.3); Neutrophils # 10.4 K/mm3 (1.8-7.8); Neutrophils % 82.7 % (37.0-80.0); Platelet Count 189 K/mm3 (142-424); Red Blood Count 4.09 M/mm3 (4.20-5.40); Red Cell Distribution Width 14.2 % (11.5-17.5); White Blood Count 12.6 K/mm3 (4.8-10.8)
[2021-05-17 19:43] LABS: Anion Gap 7.4 mEq/L (5-15); Blood Urea Nitrogen 28 mg/dl (7-17); Calcium 8.8 mg/dl (8.4-10.2); Carbon Dioxide 34 mmol/L (22.0-30.0); Chloride 95 mmol/L (98-107); Creatinine Clearance Estimated 45 mL/min (50-200); Estimated Glomerular Filt Rate 60 ml/min (>60); GFR (African American) 73 ML/MIN (>60); Glucose 143 mg/dl (74-100); Magnesium 1.9 mg/dl (1.6-2.3); Potassium 3.4 mmoL/L (3.5-5.1); Sodium 133 mmol/L (136-145)
[2021-05-17 19:48] LABS: C-Reactive Protein 159.9 mg/L (0-4); D-Dimer 1.24 ug/mL (0.0-0.5)
[2021-05-17 19:54] LABS: NT Pro Brain Natriuretic Pep. 3550 pg/mL (0-450)
[2021-05-17 19:57] LABS: Troponin I 0.05 ng/ml (0.00-0.034)
--- NOTE | 2021-05-17 20:01 | CT_ITS ---
PROCEDURE INFORMATION: Exam: CTA Chest With Contrast Exam date and time: 05/17/2021 8:01 PM Age: 81 years old Clinical indication: Shortness of breath; Prior surgery; Additional info: Elevated d dimer, high suspicion for pe TECHNIQUE: Imaging protocol: Computed tomographic angiography of the chest with contrast. 3D rendering (Not supervised by radiologist): MIP and/or 3D reconstructed images were created by the technologist. Radiation optimization: All CT scans at this facility use at least one of these dose optimization techniques: automated exposure control; mA and/or kV adjustment per patient size (includes targeted exams where dose is matched to clinical indication); or iterative reconstruction. Contrast material: ISOVUE 370; Contrast volume: 70 ml; Contrast route: INTRAVENOUS (IV); COMPARISON: CR XR CHEST PORTABLE 05/17/2021 7:26 PM FINDINGS: Pulmonary arteries: Normal. No pulmonary emboli. Aorta: No aortic aneurysm. No aortic dissection. Other arteries: Calcified atherosclerosis. No aneurysm. Lungs: Masslike consolidation within the right upper lobe measuring approximately 7.4 x 4.7 cm. Pleural spaces: No pneumothorax. No pleural effusion. Heart: Cardiomegaly. Lymph nodes: No enlarged lymph nodes. Gallbladder and bile ducts: Post cholecystectomy change. Adrenal glands: Mild adrenal thickening without discrete mass. Bones/joints: No acute fracture. Soft tissues: No significant swelling. IMPRESSION: Masslike consolidation within the right upper lobe which may be infectious or inflammatory however malignancy is not excluded and follow-up to radiographic clearance is recommended.
--- NOTE | 2021-05-17 21:39 | PC.NURSE ---
Fredy Ramirez MD at this time
--- NOTE | 2021-05-17 22:16 | PC.NURSE ---
House notified on need for bed assignment
[2021-05-17 22:54] LABS: Troponin I 0.05 ng/ml (0.00-0.034)
--- NOTE | 2021-05-17 23:12 | PC.NURSE ---
Report called to DIMITRY Jha at this time.
[2021-05-18] VITALS (9 sets, daily range): BP systolic 116–144; BP diastolic 55–91; PULSE 59–85; RESP 18–20; TEMP 36.5–38.1; O2SAT 85–94; BMI 27.3
--- NOTE | 2021-05-18 06:43 | HMH.HP ---
*Admission Date: 05/17/21 *Chief complaint: weakness, cough, SOA *History of present illness: Ms. Ge is an 81yo F with history of A. fib, hypothyroidism, who presented to the ER with complaint of dyspnea, weakness and 3 days of dry cough. Per daughter at bedside, patient has been complaining of fatigue and cough for the past 3 days. Associated symptoms include congestion. Her is ill with similar symptoms. Patient has not had fevers and patient denies productive cough, hemoptysis, current chest pain, vomiting, abdominal pain, changes in GI/. Additionally, patient takes digoxin for atrial fibrillation. Patient has no history of COPD, asthma or smoking. Patient states she does not have CHF and does not usually have lower extremity edema. On evaluation in the ER, she was found to have right middle lobe pneumonia. Daughter reports concern for aspiration type event a few days ago prior to onset of cough. Afebrile at this time and stable on 2 L nasal cannula. D-dimer elevated in the ER, has lower extremity edema, CTA was negative of the chest. Overall has no complaints this morning. Feels better on oxygen. Afebrile. Hemodynamically stable. [facility] History I have reviewed the patient's past medical history: Yes Medical History: Reports:: Atrial Fibrillation, Heart Murmur, Hyperlipidemia, Hypertension, Valvular Heart Disease Denies:: Cancer, Diabetes Mellitus Type 1, Diabetes Mellitus Type 2, Internal Pacemaker, Lung Disease, MRSA, Seizures *Have you ever received a pneumonia vaccine?: No *Have you received a flu vaccine this season?: No Other Medical History: Reports: Hypothyroidism. Denies: Blood Transfusion Reaction Other Surgeries: Yes: Cardiac Catheterization, Cardiac Surgery, Cholecystectomy, Other Valve Replacement, Other (JULEE 2019). No: Pacemaker Amputation: No Fractures: No - *Social History Last grade of school completed: High school graduate Smoking Status: Unknown if ever smoked Alcohol Intake: never Substance Use Type: denies use *Occupational Status:: retired Housing: house Household Members: spouse *Travel in the last 8 weeks: None Family Hx:: Coronary Artery Disease, Heart Attack, Stroke Review of Systems - Review of Systems Review of systems:: pertinent systems reviewed and negative unless documented below (14 point review of systems performed, pertinent positives and negatives as per HPI) - *Neurologic Denies localized weakness, Denies numbness, Denies fainting Meds Home Medications Medication Instructions Recorded Confirmed Type cholecalciferol (vitamin D3) 25 1,000 unit PO DAILY 09/05/18 05/18/21 History mcg (1,000 unit) capsule cyanocobalamin (vitamin B-12) 1,000 mcg PO DAILY 09/05/18 05/18/21 History 1,000 mcg tablet atorvastatin 80 mg tablet 80 mg PO HS tab 12/11/18 05/18/21 History levothyroxine 88 mcg tablet 88 mcg PO DAILY tab 12/11/18 05/18/21 History Digoxin 125 mcg PO DIRECTED 06/05/19 05/18/21 History Potassium Chloride [Klor-Con M20] 40 meq PO DAILY 06/05/19 05/18/21 History Amlodipine Besylate 5 mg PO DAILY 04/27/20 05/18/21 History Furosemide [Furosemide 20mg Tab*] 20 mg PO DAILY 05/18/21 05/18/21 History carvediloL [Coreg 12.5mg 12.5 mg PO BID 05/18/21 05/18/21 History Tablet] Allergies Allergy/AdvReac Type Severity Reaction Status Date / Time levofloxacin [From [facility]] Allergy Unknown Verified 05/17/21 23:54 Exam Vital signs and Labs for Last 24 Hours: Temp Pulse Resp BP Pulse Ox 100.5 F H 73 20 144/66 H 94 L 05/18/21 03:35 05/18/21 04:00 05/18/21 04:00 05/18/21 04:00 05/18/21 04:00 Laboratory Results - last 24 hr 05/17/21 19:15: SARS-CoV-2 (PCR) Not detected, Influenza A Untype (PCR) Not detected, Influenza Type B (PCR) Not detected 05/17/21 19:27: WBC 12.6 H, RBC 4.09 L, Hgb 12.7, Hct 39.6, MCV 96.7, MCH 31.1, MCHC 32.2, RDW 14.2, Plt Count 189, MPV 9.0, Neut % (Auto) 82.7 H, Lymph % (Auto) 6.1 L, [place] % (Auto) 9.1, Eos % (Auto)
--- NOTE | 2021-05-18 06:47 | PC.NURSE ---
Pt has been confused at times this shift. Has had to be redirected to leave O2 NC on. Pt is currently on 2L O2 NC at this time. She has been febrile x1. Medicated per jul. Pt has been up to BSC with assist x1. VS currently stable. Will continue to monitor.
--- NOTE | 2021-05-18 07:25 | P.CONPHA_ITS ---
[facility] Pharmacy VTE Monitoring - Patient Demographics Admission date: 05/17/21 Report Date: 05/18/21 Time: 07:25 Allergies/Adverse Reactions: Patient Allergies levofloxacin [From [facility]] Allergy (Unknown, Verified 05/17/21 23:54) Height: 1.5 m Weight: 61.689 kg Patient Problems: Current Active Problems (Last Updated 12/11/18 @ 15:09 by Chary Crouch RN) Pneumonia (Acute) Acute respiratory failure with hypoxia (Acute) - VTE Risk Labs: VTE Related Lab Results Hgb 12.7 g/dL (12.2-16.2) 05/17/21 19:27 Hct 39.6 % (37.0-47.0) 05/17/21 19:27 Plt Count 189 K/mm3 (142-424) 05/17/21 19:27 BUN 28 mg/dl (7-17) H 05/17/21 19:27 Creatinine 0.90 mg/dl (0.52-1.04) 05/17/21 19:27 Estimated Creat Clear 45 mL/min (50-200) 05/17/21 19:27 VTE Score: 2 VTE Risk Level: Very Low Risk - Prophylaxis VTE Prophylaxis Ordered?: Yes Types of VTE Prophylaxis: IPCS Thigh High Location of Applied Device: Bilateral Lower Extremeties
--- NOTE | 2021-05-18 07:29 | CA_ITS ---
FINAL REPORT TECHNIQUE: Bilateral lower extremity venous duplex was performed with augmentation and compression. CLINICAL HISTORY: swelling, elevated D-dimer FINDINGS: The right great saphenous vein has been harvested. Proper flow is seen throughout the remaining deep venous systems bilaterally. There is no evidence of deep venous thrombosis. IMPRESSION: No evidence of deep venous thrombosis. Reviewed, Interpreted and Dictated by Tyrone Melvin MD Transcribed by Anahi Saunders Authenticated by Tyrone Melvin MD on 05/18/2021 12:14:11 PM [facility]
[2021-05-18 07:37] LABS: Basophils % 0.4 % (0.1-2.0); Eosinophils % 0.1 % (0.1-12.0); Hematocrit 37.4 % (37.0-47.0); Hemoglobin 11.6 g/dL (12.2-16.2); Lymphocytes % 9.4 % (10-50); Mean Corpuscular Hemoglobin 30.7 pg (27.0-31.2); Mean Corpuscular Volume 98.8 fl (81-99); Mean Platelet Volume 8.7 fl (7.4-10.4); Monocytes % 9.1 % (1.7-9.3); Neutrophils # 8.6 K/mm3 (1.8-7.8); Neutrophils % 81.2 % (37.0-80.0); Platelet Count 181 K/mm3 (142-424); Red Blood Count 3.79 M/mm3 (4.20-5.40); Red Cell Distribution Width 14.4 % (11.5-17.5); White Blood Count 10.6 K/mm3 (4.8-10.8)
[2021-05-18 07:52] LABS: Blood Urea Nitrogen 29 mg/dl (7-17); Calcium 8.6 mg/dl (8.4-10.2); Carbon Dioxide 34 mmol/L (22.0-30.0); Chloride 97 mmol/L (98-107); Creatinine Clearance Estimated 44 mL/min (50-200); Estimated Glomerular Filt Rate 60 ml/min (>60); GFR (African American) 73 ML/MIN (>60); Glucose 118 mg/dl (74-100); Sodium 134 mmol/L (136-145)
--- NOTE | 2021-05-18 12:30 | PC.NURSE ---
RESP CARE NOTE: Cuff leak test performed, no gurgle, or cough. Vt returned with 150-250 ml, which is slightly better than yesterday.
--- NOTE | 2021-05-18 15:38 | PC.NURSE ---
patient has done well this shift. does desat with ambulation. noted to drop to 85% on room air. remains wheezy through out.has been up a few times to the bedside commode. two bms this shift. ambulated in room with family at bedside. offered bath but patient refused stated she would take it in the morning. refused lunch but did snack while family in room. has been sleeping off and on.
--- NOTE | 2021-05-18 17:32 | PC.NURSE ---
Report received from Brett Sherman RN
[2021-05-19] VITALS (11 sets, daily range): BP systolic 132–144; BP diastolic 66–72; PULSE 72–103; RESP 18–22; TEMP 36.7–37.1; O2SAT 89–94; BMI 27.8
--- NOTE | 2021-05-19 04:55 | PC.NURSE ---
pt has had some intermittent confusion this shift, remains on 2.5L NC with O2 sats 91-94%, audible wheezes noted, up to BSC x 1
[2021-05-19 06:23] LABS: Basophils % 0.2 % (0.1-2.0); Eosinophils % 0.1 % (0.1-12.0); Hematocrit 37.3 % (37.0-47.0); Hemoglobin 11.8 g/dL (12.2-16.2); Lymphocytes # 0.7 K/mm3 (0.7-4.5); Lymphocytes % 7.5 % (10-50); Mean Corpuscular HGB Conc 31.6 g/dL (31.8-35.4); Mean Corpuscular Hemoglobin 30.5 pg (27.0-31.2); Mean Corpuscular Volume 96.5 fl (81-99); Mean Platelet Volume 8.9 fl (7.4-10.4); Monocytes # 0.7 K/mm3 (0.1-1.0); Monocytes % 7.2 % (1.7-9.3); Neutrophils # 8.2 K/mm3 (1.8-7.8); Neutrophils % 85.1 % (37.0-80.0); Platelet Count 238 K/mm3 (142-424); Red Blood Count 3.86 M/mm3 (4.20-5.40); Red Cell Distribution Width 14.4 % (11.5-17.5); White Blood Count 9.7 K/mm3 (4.8-10.8)
[2021-05-19 06:36] LABS: MANUAL DIFFERENTIAL MANUAL DIFFERENTIAL (MANUAL DIFF)
[2021-05-19 06:37] LABS: Anion Gap 4.4 mEq/L (5-15); Blood Urea Nitrogen 33 mg/dl (7-17); Calcium 8.9 mg/dl (8.4-10.2); Carbon Dioxide 36 mmol/L (22.0-30.0); Chloride 97 mmol/L (98-107); Creatinine Clearance Estimated 44 mL/min (50-200); Estimated Glomerular Filt Rate 69 ml/min (>60); GFR (African American) 84 ML/MIN (>60); Glucose 108 mg/dl (74-100); Magnesium 2.1 mg/dl (1.6-2.3); Potassium 3.4 mmoL/L (3.5-5.1); Sodium 134 mmol/L (136-145)
[2021-05-19 08:18] LABS: Lymphocytes % 8 % (10-50); Monocytes % 5 % (2-9); Neutrophils % 87 % (42-76); Platelet Estimate Normal; Total Cells Counted 100
[2021-05-19 08:19] LABS: RBC Morphology Normal
--- NOTE | 2021-05-19 08:38 | CT_ITS ---
FINAL REPORT TECHNIQUE: Axial images were obtained through the chest without contrast. CLINICAL HISTORY: evaluate pneumonia, sob, wheezing FINDINGS: There are no prior images for comparison. There are multiple median sternotomy wires. There is diastases of the sternotomy at the level of the manubrium. There is extensive dense consolidation in the right upper lobe of the lung extending to the right hilum. There is patchy consolidation in the right middle lobe. There is atelectasis at the lung bases. There are multiple small mediastinal lymph nodes. There is multichamber cardiomegaly. There are extensive coronary artery calcifications. A small right pleural effusion is seen. Limited images of the upper abdomen demonstrate multiple stones in the right renal collecting system. The gallbladder is surgically absent. IMPRESSION: Dense consolidation in the right upper and right middle lobe of the lung consistent with acute pneumonia. Nonobstructing right renal stones. Reviewed, Interpreted and Dictated by Tyrone Melvin MD Transcribed by Isidra Prajapati Authenticated by Tyrone Melvin MD on 05/19/2021 10:51:21 AM [facility]
--- NOTE | 2021-05-19 08:39 | PC.NURSE ---
dr giang spoke with dr johnson about consult
--- NOTE | 2021-05-19 08:43 | P.PN_ITS ---
Internal Medicine - PN: Subj *Date: 05/19/21 *Time: 08:43 Interval history: Patient is up in a chair, wearing 2 L nasal cannula, appears comfortable. She had a little bit of problems with ICU delirium overnight but is pleasant and has had no behavioral issues. Her daughter is with her. Nurses are concerned about persistent wheezing even after breathing treatments. Exam Vital signs and Labs for Last 24 Hours: Temp Pulse Resp BP Pulse Ox 98.1 F 73 18 144/67 H 90 L 05/19/21 04:00 05/19/21 06:54 05/19/21 04:00 05/19/21 04:00 05/19/21 06:54 Laboratory Results - last 24 hr 05/19/21 05:32: WBC 9.7, RBC 3.86 L, Hgb 11.8 L, Hct 37.3, MCV 96.5, MCH 30.5, MCHC 31.6 L, RDW 14.4, Plt Count 238 D, MPV 8.9, Neut % (Auto) 85.1 H, Lymph % (Auto) 7.5 L, [place] % (Auto) 7.2, Eos % (Auto) 0.1, Baso % (Auto) 0.2, Neut # (Auto) 8.2 H, Lymph # (Auto) 0.7, [place] # (Auto) 0.7, Eos # (Auto) 0.0, Baso # (Auto) 0.0, Total Counted 100, Neutrophils % (Manual) 87 H, Lymphocytes % (Manual) 8 L, Monocytes % (Manual) 5, Platelet Estimate Normal, RBC Morphology Normal 05/19/21 05:32: Sodium 134 L, Potassium 3.4 L, Chloride 97 L, Carbon Dioxide 36 H, Anion Gap 4.4 L, BUN 33 H, Creatinine 0.80, Estimated Creat Clear 44, Estimated GFR 69, Est GFR ( Amer) 84, Glucose 108 H, Calcium 8.9, Magnesium 2.1 D I & O for Last 24 hours: Intake & Output 05/16/21 05/17/21 05/18/21 05/19/21 11:59 11:59 11:59 11:59 Intake Total 400 / 400 720 / 720 Output Total 900 / 900 1000 / 1000 Balance -500 / -500 -280 / -280 Weight 136 lb 138 lb 7 oz Narrative: Patient is alert, awake. A little bit confused about the date. Lungs have significant tight wheezing sounds throughout the lung [place], almost a little stridorous rather than standard wheezing. Dense crackles in the right lower and middle lung field. Heart rate regular. Abdomen soft, tissues are well perfused in her extremities. Oropharynx clear. Assessment and Plan (1) Acute respiratory failure with hypoxia Status: Acute Category: Medical Code(s): J96.01 - Acute respiratory failure with hypoxia (2) Chronic atrial flutter Status: Acute Category: Medical Code(s): I48.92 - Unspecified atrial flutter (3) Hypokalemia Status: Acute Category: Medical Code(s): E87.6 - Hypokalemia (4) Right middle lobe pneumonia Status: Acute Category: Medical Code(s): J18.9 - Pneumonia, unspecified organism (5) Hypokalemia Status: Acute Category: Medical Code(s): E87.6 - Hypokalemia - Assessment and plan all Dx Assessment and Plan for all problems:: I am a little concerned the wheezing that were here and may be more of a stridorous sound, and given the dense infiltrate and history of aspiration I am concerned there may be possible obstructive pneumonia in that lobe. I discussed case with Dr. Lorenzana, he will consult and asked that a noncontrast CT be performed this morning.
--- NOTE | 2021-05-19 10:53 | HMH.PULMCON ---
*Admission Date: 05/17/21 *Reason for consult:: Acute hypoxic respiratory failure *History of present illness: Ms. Ge is a 81-year-old female, significant dementia, no significant smoking history, no prior respiratory complaints as per the patient and the primary team presented to the hospital with worsening respiratory status after choking episode and found to have dense consolidation initiated on Augmentin and pulmonary was called today as the primary team was concerned for foreign body aspiration. [facility] History Medical History: Reports:: Atrial Fibrillation, Heart Murmur, Hyperlipidemia, Hypertension, Valvular Heart Disease Denies:: Cancer, Diabetes Mellitus Type 1, Diabetes Mellitus Type 2, Internal Pacemaker, Lung Disease, MRSA, Seizures *Have you ever received a pneumonia vaccine?: No *Have you received a flu vaccine this season?: No Other Medical History: Reports: Hypothyroidism. Denies: Blood Transfusion Reaction Other Surgeries: Yes: Cardiac Catheterization, Cardiac Surgery, Cholecystectomy, Other Valve Replacement, Other (JULEE 2019). No: Pacemaker Amputation: No Fractures: No - *Social History Last grade of school completed: High school graduate Smoking Status: Unknown if ever smoked Alcohol Intake: never Substance Use Type: denies use *Occupational Status:: retired Housing: house Household Members: spouse *Travel in the last 8 weeks: None Family Hx:: Coronary Artery Disease, Heart Attack, Stroke ROS - Review of Systems Review of systems:: unable to obtain Limited given patient's mentation and dementia - Cons Reports fatigue, Denies body ache(s), Denies chills - ENT Denies bleeding gums - Card Reports shortness of breath, Reports shortness of breath with activity - Resp Respiratory: Reports cough, Reports excessive phlegm production, Denies pain on inspiration, Denies pain with cough - GI Gastrointestingal: Denies: abdominal pain - Psych Denies thoughts of hurting/killing others, Denies thoughts of hurting/killing yourself Meds Home Medications Medication Instructions Recorded Confirmed Type cholecalciferol (vitamin D3) 25 1,000 unit PO DAILY 09/05/18 05/18/21 History mcg (1,000 unit) capsule cyanocobalamin (vitamin B-12) 1,000 mcg PO DAILY 09/05/18 05/18/21 History 1,000 mcg tablet atorvastatin 80 mg tablet 80 mg PO HS tab 12/11/18 05/18/21 History levothyroxine 88 mcg tablet 88 mcg PO DAILY tab 12/11/18 05/18/21 History Digoxin 125 mcg PO MOWEFR 06/05/19 05/18/21 History Potassium Chloride [Klor-Con M20] 40 meq PO DAILY 06/05/19 05/18/21 History Amlodipine Besylate 5 mg PO DAILY 04/27/20 05/18/21 History Furosemide [Furosemide 20mg Tab*] 20 mg PO DAILY 05/18/21 05/18/21 History carvediloL [Coreg 12.5mg 12.5 mg PO BID 05/18/21 05/18/21 History Tablet] Allergies Allergy/AdvReac Type Severity Reaction Status Date / Time levofloxacin [From [facility]] Allergy Unknown Verified 05/17/21 23:54 Exam - Constitutional Constitutional:: Present: no acute distress, comfortable - HENMT Exam HENMT: Present: normocephalic - Eye Exam Eyes:: Present: normal appearance both eyes and related structures - Neck Exam Neck:: Present: normal visual inspection - Respiratory Exam Respiratory:: Present: able to speak in complete sentences, respiratory distress, accessory muscle use, crackles, wheezing - Cardiovascular Exam Cardiac:: Present: S1, S2 - GI Exam GI:: Present: soft - Skin Exam Skin: Present: warm, no rash - Neurological Exam Neurological: Present: awake. Absent: alert, normal cognition, oriented X3 - Extremities Exam Extremities: Present: no cyanosis, no clubbing - Psychiatric Exam Psychiatric: Present: normal affect Internal Medicine - CN: Reslt - Labs CBC & Chem 7: 05/19/21 05:32 05/19/21 05:32 Labs: Short CBC 05/19/21 Range/Units 05:32 WBC 9.7 (4.8-10.8) K/mm3 Hgb 11.8 L (12.2-16.2) g/dL Hct 37.3 (37.0-47.0) % Plt Count
--- NOTE | 2021-05-19 11:16 | HMH.SLDYSPHA ---
Speech & Language Evaluation Speech/Language Dysphagia Evaluation Start: 05/19/21 10:51 Freq: ONCE Status: Active Protocol: Document 05/19/21 10:51 HALIMA (Rec: 05/19/21 11:16 HALIMA [id number]) Dysphagia Assess/Goals/Plan Assessment Date of Evaluation: 05/19/21 Evaluation Type Initial Certification Assessment/Problems Possible aspiration pneumonia, coughing Does Patient Qualify for Service No Qualify/Failure Comment Based on the results of today' s clinical swallow evaluation, patient does not qualify for skilled speech therapy services at this time. Recommendations PHYSICIAN CERTIFICATION: The specified therapy services are required, authorized, and reviewed every 30 days. Diet Recommendations Mechanical Soft Liquid Type Recommendations Normal/Thin SL Swallow Guidelines Standard Aspiration Prec.,Chk mough for pocketing Dysphagia Swallow Precautions/Strategies Sitting Upright (90 deg), Pocketing,Small Bites and Sips Place Food on Either side of Mouth Plan Pt/Guardian verbally ack understanding Yes of dx/prognosis/goals Pt/Guardian verbally ack understanding Yes of/consent to tx prog G -code Required No Education Instructions provided Diet recommendations discussed with patient, care management , and nursing. Pt/Caregiver able to recall information Unable to ind. understand Reinforcement needed No Speech & Language HPI History Present Illness Description of Patient Problem Ms. Ge is an 81yo F with history of A. fib, hypothyroidism, who presented to the ER with complaint of dyspnea, weakness and 3 days of dry cough. Chest x-ray was completed and showed dense infiltrates in right middle lobe. Rehab Services Assessed Speech therapy Is this evaluation r/t stroke? No Language Primary Language [place] General Information General Current Food Consistancy Regular,Chopped Meats,Thin Liquids Dentition Upper & Lower Dentures Oxygen Status Nasal Cannula Facial Symmetry Symmetrical Patient Orientation Person Ability to Follow Directions Good Communication Ability Mild Impairment Dysphagia:Food Presentation Evaluation Food Type Pureed,M
--- NOTE | 2021-05-19 18:32 | PC.NURSE ---
patient has been up to chair several times this shift with daughter. daughter has assisted patient with using the bathroom and ambulation. daughter has also encouraged eating. patient continues to have wheezes through out. plan for bronchoscopy in morning. elizabeth did make duonebs scheduled for today only. remains on 2.5l o2. does at times desat with movement and ambulation to 86%. other vitals stable. does sleep deeply during the day when daughter is not in room. no skin issues noted. bath provided to patient this morning after incontinent episode with coughing.
[2021-05-20] VITALS (24 sets, daily range): BP systolic 85–150; BP diastolic 55–83; PULSE 84–125; RESP 14–24; TEMP 36.6–36.8; O2SAT 88–98
[2021-05-20 06:53] LABS: INR 1.11 (0.9-1.1); Prothrombin Time 12.4 seconds (10.1-12.5)
[2021-05-20 07:04] LABS: Alanine Aminotransferase 21 U/L (12-78); Albumin/Globulin Ratio 0.8 (1.1-1.8); Alkaline Phosphatase 115 U/L (38-126); Anion Gap 3.2 mEq/L (5-15); Aspartate Amino Transferase 40 U/L (14-36); Bilirubin,Total 1.1 mg/dl (0.2-1.3); Blood Urea Nitrogen 32 mg/dl (7-17); Calcium 8.8 mg/dl (8.4-10.2); Carbon Dioxide 38 mmol/L (22.0-30.0); Chloride 96 mmol/L (98-107); Creatinine Clearance Estimated 44 mL/min (50-200); Estimated Glomerular Filt Rate 81 ml/min (>60); GFR (African American) 97 ML/MIN (>60); Globulin 3.6 g/dL (1.3-3.2); Glucose 103 mg/dl (74-100); Potassium 3.2 mmoL/L (3.5-5.1); Sodium 134 mmol/L (136-145); Total Protein,Serum 6.6 g/dl (6.3-8.2)
[2021-05-20 07:16] LABS: Basophils # 0.1 K/mm3 (0-0.2); Basophils % 1.3 % (0.1-2.0); Eosinophils % 0.4 % (0.1-12.0); Hematocrit 37.8 % (37.0-47.0); Hemoglobin 11.8 g/dL (12.2-16.2); Lymphocytes # 0.7 K/mm3 (0.7-4.5); Lymphocytes % 7.6 % (10-50); Mean Corpuscular HGB Conc 31.1 g/dL (31.8-35.4); Mean Corpuscular Hemoglobin 30.7 pg (27.0-31.2); Mean Corpuscular Volume 98.5 fl (81-99); Mean Platelet Volume 8.7 fl (7.4-10.4); Monocytes # 0.7 K/mm3 (0.1-1.0); Neutrophils # 7.2 K/mm3 (1.8-7.8); Neutrophils % 82.7 % (37.0-80.0); Platelet Count 231 K/mm3 (142-424); Red Blood Count 3.84 M/mm3 (4.20-5.40); Red Cell Distribution Width 14.3 % (11.5-17.5); White Blood Count 8.7 K/mm3 (4.8-10.8)
--- NOTE | 2021-05-20 09:12 | P.PN_ITS ---
Internal Medicine - PN: Subj *Date: 05/20/21 *Time: 09:12 Interval history: Patient sitting up in a chair. Seems to be feeling good, alert. Her daughter states that neb treatments yesterday really seem to help and she is less rhonchorous and stridorous when she breathes. Exam Vital signs and Labs for Last 24 Hours: Temp Pulse Resp BP Pulse Ox 98.0 F 97 H 18 139/64 92 L 05/19/21 16:00 05/20/21 05:55 05/20/21 04:00 05/20/21 04:00 05/20/21 05:55 Laboratory Results - last 24 hr 05/20/21 05:36: WBC 8.7, RBC 3.84 L, Hgb 11.8 L, Hct 37.8, MCV 98.5, MCH 30.7, MCHC 31.1 L, RDW 14.3, Plt Count 231, MPV 8.7, Neut % (Auto) 82.7 H, Lymph % (Auto) 7.6 L, [place] % (Auto) 8.0, Eos % (Auto) 0.4, Baso % (Auto) 1.3, Neut # (Auto) 7.2, Lymph # (Auto) 0.7, [place] # (Auto) 0.7, Eos # (Auto) 0.0, Baso # (Auto) 0.1 05/20/21 05:36: Sodium 134 L, Potassium 3.2 L, Chloride 96 L, Carbon Dioxide 38 H, Anion Gap 3.2 L, BUN 32 H, Creatinine 0.70, Estimated Creat Clear 44, Estimated GFR 81, Est GFR ( Amer) 97, Glucose 103 H, Calcium 8.8, Total Bilirubin 1.1, AST 40 H, ALT 21, Alkaline Phosphatase 115, Total Protein 6.6, Albumin 3.0 L, Globulin 3.6 H, Albumin/Globulin Ratio 0.8 L 05/20/21 05:36: PT 12.4, INR 1.11 H I & O for Last 24 hours: Intake & Output 05/17/21 05/18/21 05/19/21 05/20/21 11:59 11:59 11:59 11:59 Intake Total 400 / 400 940 / 940 680 / 680 Output Total 900 / 900 1300 / 1300 700 / 700 Balance -500 / -500 -360 / -360 -20 / -20 Weight 136 lb 138 lb 6.499 oz Narrative: Good air movement, continues to have some loose rhonchi but much less squeaky stridor sounding. Heart rate regular, abdomen soft, no edema. Alert and oriented x2. Assessment and Plan (1) Acute respiratory failure with hypoxia Status: Acute Category: Medical Code(s): J96.01 - Acute respiratory failure with hypoxia (2) Chronic atrial flutter Status: Acute Category: Medical Code(s): I48.92 - Unspecified atrial flutter (3) Hypokalemia Status: Acute Category: Medical Code(s): E87.6 - Hypokalemia (4) Right middle lobe pneumonia Status: Acute Category: Medical Code(s): J18.9 - Pneumonia, unspecified organism (5) Hypokalemia Status: Acute Category: Medical Code(s): E87.6 - Hypokalemia - Assessment and plan all Dx Assessment and Plan for all problems:: Plan will be to continue antibiotics. Pulmonary consult today for bronchoscopy. Possibly discharge home after procedure if tolerates well.
--- NOTE | 2021-05-20 10:38 | HMH.ANESCL ---
[facility] Anesthesia Checklist - Patient Identification Patient Identification: Arm Band - Structural Data Admitted From: Inpatient Planned Operative Procedure/s: Bronchoscopy Consent for Planned Operative Procedure(s) Verified: Yes Verified Documents: Surgical Consent - NPO Status Verified Time NPO: 00:00 - Additional verifications Anesthesia Reactions: No Hx Blood Transfusions: No Blood Transfusion Reaction: No - Cardiovascular Assessment Heart Sounds: S1 & S2 - Airway Assessment C-Spine Mobility Assessed: No TMJ Mobility Assessed: No - Neurological Assessment Level of Consciousness: Follows Commands - Anesthesia Plan Anesthesia Risk discussed: No ASA Class: III Anesthesia Type: General [facility] History I have reviewed the patient's past medical history: Yes Medical History: Reports:: Atrial Fibrillation, Heart Murmur, Hyperlipidemia, Hypertension, Valvular Heart Disease Denies:: Cancer, Diabetes Mellitus Type 1, Diabetes Mellitus Type 2, Internal Pacemaker, Lung Disease, MRSA, Seizures *Have you ever received a pneumonia vaccine?: No *Have you received a flu vaccine this season?: No Other Medical History: Reports: Hypothyroidism. Denies: Blood Transfusion Reaction Anesthesia experience/problems:: none Other Surgeries: Yes: Cardiac Catheterization, Cardiac Surgery, Cholecystectomy, Other Valve Replacement, Other (JULEE 2019). No: Pacemaker Amputation: No Fractures: No - *Social History Last grade of school completed: High school graduate Smoking Status: Unknown if ever smoked Alcohol Intake: never Substance Use Type: denies use *Occupational Status:: retired Housing: house Household Members: spouse *Travel in the last 8 weeks: None Family Hx:: Coronary Artery Disease, Heart Attack, Stroke
--- NOTE | 2021-05-20 12:22 | XR_ITS ---
FINAL REPORT CLINICAL HISTORY: BRONCH FINDINGS: FLUOROSCOPY TIME Fluoroscopy was provided for guidance of bronchoscopy. 2 spot images were obtained. Please see operative report. Reviewed, Interpreted and Dictated by Tyrone Melvin MD Transcribed by Isidra Prajapati Authenticated by Tyrone Melvin MD on 05/20/2021 01:54:15 PM [facility]
--- NOTE | 2021-05-20 13:02 | XR_ITS ---
FINAL REPORT CLINICAL HISTORY: ETT placement--S/P BRONCH COMPARISON: 04/27/2021 FINDINGS: A single view of the chest was obtained. An ET tube is been placed with the tip 3.5 cm superior to the camron. The heart is normal in size. The mediastinum is unremarkable. There is new airspace opacity in the right middle lobe which could be related to pneumonia or hemorrhage from recent pulmonary biopsy. There are increased interstitial markings which may represent mild diffuse edema. There is no pneumothorax. There is no acute osseous abnormality. IMPRESSION: 1. ET tube with tip 3.5 cm superior to the camron. 2. New dense airspace opacity in the right middle lobe could be related to pneumonia or hemorrhage from pulmonary biopsy. Reviewed, Interpreted and Dictated by Tyrone Melvin MD Transcribed by Isidra Prajapati Authenticated by Tyrone Melvin MD on 05/20/2021 01:54:[address] [facility]
--- NOTE | 2021-05-20 13:05 | HMH.BRONCH ---
- Procedure: Date: 05/20/21 Patient Date of :: 1940 Procedure Performed:: Bronchoscopy with airway examination, bronchoalveolar lavage and transbronchial biopsy Indications:: Pneumonia, foreign body aspiration Performing Provider:: Zenaida Lawson MD Referring Provider:: Dr. Bustillo Sedation:: General anesthesia Procedure:: Bronchoscopy airway examination, alveolar lavage and transbronchial biopsy. Clean therapeutic bronchoscopy was advanced to the ET tube and airways were examined up to sub segmental bronchi. Significant narrowing of the right upper lobe subsegmental bronchi noted most prominent in the right upper lobe anterior segment. No obvious foreign body noted. Bronchoalveolar lavage was performed the right upper lobe with a total of 60 cc normal saline solution with return of 30 cc back that was sent for Gram stain bacterial fungal AFB stain culture along with cytopathology. Transbronchial biopsies were performed in the right upper lobe and were sent for cytopathology along with bacterial fungal AFB stain and culture. Rest of the airway examinations in the right and left lungs appear within normal. No obvious foreign bodies noted. No evidence of mucous plugging or blood clots or hemoptysis noted. Patient tolerated the procedure well. We will follow with the results. Findings:: Please see the procedure note Recommendations:: Please see the procedure note and progress note from today Complications:: Patient remained intubated postprocedure secondary to low tidal volumes. We will continue to wean sedation and extubate as tolerated. Estimated blood obtained (mL): 5
--- NOTE | 2021-05-20 13:08 | HMH.PULMPN ---
Internal Medicine - PN: Subj *Date: 05/20/21 *Time: 13:08 Interval history: No acute respiratory events overnight. Exam - Constitutional Constitutional:: Present: no acute distress, comfortable - HENMT Exam HENMT: Present: normocephalic, atraumatic - Eye Exam Eyes:: Present: normal appearance both eyes and related structures - Neck Exam Neck:: Present: normal visual inspection - Respiratory Exam Respiratory:: Present: able to speak in complete sentences, no respiratory distress, wheezing - Cardiovascular Exam Cardiac:: Present: S1, S2 - GI Exam GI:: Present: soft - Skin Exam Skin: Present: warm, no rash - Neurological Exam Neurological: Present: alert, awake. Absent: normal cognition, oriented X3 - Extremities Exam Extremities: Present: no cyanosis, no clubbing, no edema Assessment and Plan (1) Acute respiratory failure with hypoxia Status: Acute Category: Medical Code(s): J96.01 - Acute respiratory failure with hypoxia (2) Chronic atrial flutter Status: Acute Category: Medical Code(s): I48.92 - Unspecified atrial flutter (3) Hypokalemia Status: Acute Category: Medical Code(s): E87.6 - Hypokalemia (4) Right middle lobe pneumonia Status: Acute Category: Medical Code(s): J18.9 - Pneumonia, unspecified organism (5) Hypokalemia Status: Acute Category: Medical Code(s): E87.6 - Hypokalemia - Assessment and plan all Dx Assessment and Plan for all problems:: #Acute hypoxic respiratory failure: #Community-acquired pneumonia: 81-year-old h/o dementia, no smoking history no prior respiratory complaints presented with worsening respiratory status status post choking episode at home found to have right lung consolidation initiation of Augmentin. CT chest without contrast performed showed showed dense predominant right upper lobe consolidation along with narrowing of right upper lobe bronchus, unusual location for aspiration somewhat concerning for underlying mass/postobstructive pneumonia. Patient continued to receive Augmentin. Underwent bronchoscopy with BAL and transbronchial biopsy this morning. Narrowing of the right upper lobe bronchus with no obvious endobronchial mass noted. Patient procedure complicated by low tidal volumes unable to be extubated. We will continue to wean sedation as tolerated and will extubate the patient. Plan: -Continue to hold off sedation with only as needed's Fentanyl. Perform SBT's and extubate as tolerated. -Continue mechanical ventilatory support. patient remained intubated postprocedure with low tidal volumes. Otherwise unchanged We will continue Augmentin. Will follow with the bronchoscopy results. -Continue Augmentin x 7 days -DuoNebs every 6 hours scheduled. -Follow with speech recommendations. #Thank you involving pulmonary in this patient care. We will continue to follow.
--- NOTE | 2021-05-20 13:31 | DIET.NUTRFU ---
Patient intubated and in need of enteral nutrition. This RD consulted, orders put in for pulmocare at 20ml/hr increase as tolerated to 45ml/hr providing 1552kcal, 64gm protein and 812ml free water with flush of 160ml Q4H= 960ml with total fluid of 1772ml/day. Labs Na 134L, K 3.2, BUN 32H, Cr 0.7, glucose 103. CBW is 62kg. Speech saw her today recommending MSOFT diet: Minimal oral residue noted with puree, pudding and MSOFT. Mild oral residue noted with regular solid. Patient also demonstrated prolonged mastication with regular solids. She also passed the three oz water test. Recommending mechanical soft diet and thin liquids. Once extubated advanced as tolerated to MSOFT/ground.
[2021-05-20 13:53] LABS: ABG Base Excess 9.1 mmol/L (-2.4-2.3); ABG Oxygen Saturation 98 % (90-100); ABG PCO2 40.2 mmhg (35.0-45.0); ABG PH 7.52 mmol/L (7.35-7.45); ABG PO2 98.8 mmhg (80-100); ABG TCO2 33.2 mmhg (23-27)
[2021-05-20 13:58] LABS: Allen's Test ACCEPTABLE; Oxygen 75 %; PEEP 5; Tidal Volume 420; Vent Rate 20
[2021-05-20 13:59] LABS: Source Right Radial
--- NOTE | 2021-05-20 14:50 | SUR.PHASEI ---
1250 Pt sedated during procedure in OR per anesthesia (see anesthesia record for details). ARTURO Bell unable to extubated pt post procedure. Pt taken straight to ICU. Pt transferred via cash van salesperson and anesthesia with continual monitoring and oxygenating per ambu bag. Upon arrival to ICU, cash van salesperson stayed at bedside with primary GREEN CHAIN PULLER during recovery period. Detail report given at bedside. Vital signs stable. Pt left in care of Suzi GREEN CHAIN PULLER. See PACU charting for recovery details.
--- NOTE | 2021-05-20 18:36 | PC.NURSE ---
Patient went for bronchoscopy today and was unable to be extubated post operatively. RN phase 1 recovered upon readmission to patient room at 1330. Patient was started on low dose fentanyl drip of 2.5mL/hr as per provider order (MD CHEVY). The plan was to extubate once deemed appropriate which was successful and patient was extubated at 1800 by MD CONCHA. Patient then placed on venti mask at 50%. Patient given NEB treatment to ease work of breathing due to fresh extubation. Provider gave verbal to supply patient with Epi neb treatment overnight if required. Patient has been tachycardic since return of bronch, provider is aware- no orders given at this time. Patient received a bath, all IV lines were changed, two IV's were initiated per RN as per protocol. Patient continues to exhibit bundle branch block
[2021-05-21] VITALS (14 sets, daily range): BP systolic 102–128; BP diastolic 53–74; PULSE 63–112; RESP 17–24; TEMP 36.4–37.2; O2SAT 89–94; BMI 29.3
--- NOTE | 2021-05-21 08:00 | XR_ITS ---
FINAL REPORT CLINICAL HISTORY: worsening O2 requirement FINDINGS: A portable view of the chest was obtained. Comparison is made to a prior exam dated April 27, 2020. Cardiomegaly is unchanged. There is new right mid lung consolidation favoring pneumonia but underlying mass cannot be excluded. There is bibasilar atelectasis. There is no pneumothorax. IMPRESSION: New right midlung consolidation favors pneumonia. Underlying mass not excluded. Recommend follow up to resolution. Reviewed, Interpreted and Dictated by Neida Bishop MD Transcribed by Martin Casper Authenticated by Neida Bishop MD on 05/21/2021 09:33:47 AM [facility]
--- NOTE | 2021-05-21 08:03 | HMH.ACPN2 ---
Internal Medicine - PN: Subj *Date: 05/21/21 *Time: 09:50 Interval history: Patient was able to be extubated yesterday afternoon. Appears to have had more confusion/delirium overnight. Still requiring 50% Ventimask this morning. Daughter at bedside, concern for patient's confusion. Patient is afebrile. Blood pressure within normal range. Audibly rhonchorous with breathing. confused on exam. Alert, but has difficulty following commands. Exam Vital signs and Labs for Last 24 Hours: Temp Pulse Resp BP Pulse Ox 97.8 F 89 17 117/61 89 L 05/21/21 04:00 05/21/21 06:52 05/21/21 06:00 05/21/21 06:00 05/21/21 06:52 Laboratory Results - last 24 hr 05/20/21 13:02: Specimen Source Right radial, O2 % 75, ABG pH 7.52 H, ABG pCO2 40.2, ABG pO2 98.8, ABG HCO3 32.0 H, ABG Total CO2 33.2 H, ABG O2 Saturation 98, ABG Base Excess 9.1 H, Dami Test Acceptable, Vent Rate 20, Tidal Volume 420, PEEP 5 I & O for Last 24 hours: Intake & Output 05/18/21 05/19/21 05/20/21 05/21/21 23:59 23:59 23:59 23:59 Intake Total 860 / 920 960 / 960 796 / 996 200 / 200 Output Total 1200 / 1200 1300 / 1300 200 / 200 Balance -340 / -280 -340 / -340 596 / 796 200 / 200 Weight 61.689 kg 62.78 kg 66.026 kg Microbiology Reports for the Last 24 Hours: Microbiology 05/20/21 12:00 Bronchial Washings - Right Upper Lobe Gram Stain - Final 05/20/21 13:30 Sputum - Endotracheal Tube Aspirate Gram Stain - Final Narrative: - Constitutional Mild distress on 50% venti, alert, disoriented to place and time, cooperative. - *Routine HEENT Exam Head: Present: normocephalic Eye: Present: EOMI, PERRL ENT: Present: mucous membranes moist - *Routine Neck Exam Present: supple. Absent: lymphadenopathy - *Routine Respiratory Exam Present: wheezes, crackles (Right middle lobe and bases), rhonchi that clear/move with cough. - *Routine Cardiovascular Exam Present: RRR - *Routine Abdominal Exam Present: soft, normoactive bowel sounds. Absent: tenderness - *Routine Extremities Exam Absent: cyanosis, clubbing, edema - *Routine Skin Exam Present: warm. Absent: rash - *Routine Neurological Exam Present: alert Assessment and Plan (1) Acute respiratory failure with hypoxia Status: Acute Category: Medical Code(s): J96.01 - Acute respiratory failure with hypoxia (2) Chronic atrial flutter Status: Acute Category: Medical Code(s): I48.92 - Unspecified atrial flutter (3) Hypokalemia Status: Acute Category: Medical Code(s): E87.6 - Hypokalemia (4) Right middle lobe pneumonia Status: Acute Category: Medical Code(s): J18.9 - Pneumonia, unspecified organism (5) Hypokalemia Status: Acute Category: Medical Code(s): E87.6 - Hypokalemia - Assessment and plan all Dx Assessment and Plan for all problems:: 81-year-old female with concern for an aspiration event 3 days prior to admission. Findings on presentation concerning for postobstructive pneumonia secondary to either aspiration or possible bronchial obstruction from neoplasm/inflammation. Able to be extubated yesterday but still having delirium. Problems addressed as follows: Acute hypoxemic respiratory failure Right middle lobe pneumonia -Pulmonology consulted, appreciate their assistance in care, patient having more distress this morning, will obtain repeat x-ray. -Continue supplemental oxygen with goal saturation greater 90%. -Continue current antibiotic regimen. remains afebrile. -Continue nebulizers as ordered Delirium -Secondary to ICU setting versus slow clearance of sedation. We will move patient to floor bed today for improved day/night routine, minimizing alarms, in room bathroom. Lasix x1 this morning, monitor for improvement in breathing with diuresis. Potassium supplementation for hypokalemia Regular diet Full code Continues to require inpatient management.
--- NOTE | 2021-05-21 09:29 | HMH.PULMPN ---
Internal Medicine - PN: Subj *Date: 05/21/21 *Time: 11:57 Interval history: No acute respiratory events overnight. Patient successfully extubated currently on Ventimask. Exam - Constitutional Constitutional:: Present: no acute distress, comfortable - HENMT Exam HENMT: Present: normocephalic, atraumatic - Eye Exam Eyes:: Present: normal appearance both eyes and related structures - Neck Exam Neck:: Present: normal visual inspection - Respiratory Exam Respiratory:: Present: able to speak in complete sentences, no respiratory distress, rhonchi, wheezing - Cardiovascular Exam Cardiac:: Present: S1, S2 - GI Exam GI:: Present: soft - Skin Exam Skin: Present: warm, no rash - Neurological Exam Neurological: Present: alert, awake, normal cognition - Extremities Exam Extremities: Present: no cyanosis, no clubbing Assessment and Plan (1) Acute respiratory failure with hypoxia Status: Acute Category: Medical Code(s): J96.01 - Acute respiratory failure with hypoxia (2) Chronic atrial flutter Status: Acute Category: Medical Code(s): I48.92 - Unspecified atrial flutter (3) Hypokalemia Status: Acute Category: Medical Code(s): E87.6 - Hypokalemia (4) Right middle lobe pneumonia Status: Acute Category: Medical Code(s): J18.9 - Pneumonia, unspecified organism (5) Hypokalemia Status: Acute Category: Medical Code(s): E87.6 - Hypokalemia - Assessment and plan all Dx Assessment and Plan for all problems:: #Acute hypoxic respiratory failure: #Community-acquired pneumonia: 81-year-old h/o dementia, no smoking history no prior respiratory complaints presented with worsening respiratory status status post choking episode at home found to have right lung consolidation initiation of Augmentin. CT chest without contrast performed showed showed dense predominant right upper lobe consolidation along with narrowing of right upper lobe bronchus, unusual location for aspiration somewhat concerning for underlying mass/postobstructive pneumonia. Underwent bronchoscopy with BAL and transbronchial biopsy. Narrowing of the right upper lobe bronchus with no obvious endobronchial mass noted. Patient procedure complicated by low tidal volumes unable to be extubated, eventually imroved and extubated yesterday evening to Ventimask. Patient this morning appeared rhonchorous. She continued to remain on Ventimask 50%. Continue to receive neb treatments per Received 40 mg IV Lasix by primary team. Plan: -Incentive spirometry every 1 hour. -Agressive pulmonary toilet, wean oxygen as tolerated. -Will follow with the bronchoscopy results. -Recommended to continue Augmentin x 10 days -DuoNebs every 6 hours scheduled. -Follow with speech recommendations. #Thank you involving pulmonary in this patient care. We will follow the patient in pulmonary clinic in 5-7 days.
--- NOTE | 2021-05-21 09:30 | PC.NURSE ---
report called to Tasha Sherman RN
--- NOTE | 2021-05-21 09:33 | HMH.ACPN2 ---
Internal Medicine - PN: Subj *Date: 05/21/21 *Time: 09:33 Exam Vital signs and Labs for Last 24 Hours: Temp Pulse Resp BP Pulse Ox 97.8 F 107 H 17 117/61 89 L 05/21/21 04:00 05/21/21 08:30 05/21/21 06:00 05/21/21 06:00 05/21/21 06:52 Laboratory Results - last 24 hr 05/20/21 13:02: Specimen Source Right radial, O2 % 75, ABG pH 7.52 H, ABG pCO2 40.2, ABG pO2 98.8, ABG HCO3 32.0 H, ABG Total CO2 33.2 H, ABG O2 Saturation 98, ABG Base Excess 9.1 H, Dami Test Acceptable, Vent Rate 20, Tidal Volume 420, PEEP 5 I & O for Last 24 hours: Intake & Output 05/18/21 05/19/21 05/20/21 05/21/21 23:59 23:59 23:59 23:59 Intake Total 860 / 920 960 / 960 796 / 996 200 / 200 Output Total 1200 / 1200 1300 / 1300 200 / 200 Balance -340 / -280 -340 / -340 596 / 796 200 / 200 Weight 61.689 kg 62.78 kg 66.026 kg Microbiology Reports for the Last 24 Hours: Microbiology 05/20/21 12:00 Bronchial Washings - Right Upper Lobe Gram Stain - Final 05/20/21 13:30 Sputum - Endotracheal Tube Aspirate Gram Stain - Final Assessment and Plan (1) Acute respiratory failure with hypoxia Status: Acute Category: Medical Code(s): J96.01 - Acute respiratory failure with hypoxia (2) Chronic atrial flutter Status: Acute Category: Medical Code(s): I48.92 - Unspecified atrial flutter (3) Hypokalemia Status: Acute Category: Medical Code(s): E87.6 - Hypokalemia (4) Right middle lobe pneumonia Status: Acute Category: Medical Code(s): J18.9 - Pneumonia, unspecified organism (5) Hypokalemia Status: Acute Category: Medical Code(s): E87.6 - Hypokalemia The patient's infection will respond to the chosen ABx?: Yes Is the patient receiving the right drug, dose, and route?: Yes Could a more targeted ABx be ordered?: No
[2021-05-21 10:16] LABS: Basophils # 0.1 K/mm3 (0-0.2); Eosinophils # 0.2 K/mm3 (0.0-0.4); Eosinophils % 2.4 % (0.1-12.0); Hematocrit 37.2 % (37.0-47.0); Hemoglobin 11.5 g/dL (12.2-16.2); Lymphocytes # 0.8 K/mm3 (0.7-4.5); Lymphocytes % 10.2 % (10-50); Mean Platelet Volume 8.8 fl (7.4-10.4); Monocytes # 0.5 K/mm3 (0.1-1.0); Monocytes % 6.8 % (1.7-9.3); Neutrophils # 6.2 K/mm3 (1.8-7.8); Neutrophils % 79.7 % (37.0-80.0); Platelet Count 275 K/mm3 (142-424); Red Blood Count 3.72 M/mm3 (4.20-5.40); Red Cell Distribution Width 14.4 % (11.5-17.5); White Blood Count 7.7 K/mm3 (4.8-10.8)
[2021-05-21 10:25] LABS: Anion Gap 8.8 mEq/L (5-15); Blood Urea Nitrogen 28 mg/dl (7-17); Calcium 8.9 mg/dl (8.4-10.2); Carbon Dioxide 36 mmol/L (22.0-30.0); Chloride 97 mmol/L (98-107); Creatinine Clearance Estimated 47 mL/min (50-200); Estimated Glomerular Filt Rate 69 ml/min (>60); GFR (African American) 84 ML/MIN (>60); Glucose 84 mg/dl (74-100); Potassium 3.8 mmoL/L (3.5-5.1); Sodium 138 mmol/L (136-145)
--- NOTE | 2021-05-21 10:32 | PC.NURSE ---
Rounded with MD Inez. Reordered lasix (home medication). 40mg IV Push once- please refer to eMAR. discussed duoneb treatments and use of CPT. Education on incentive spirometer. Patient is confused at baseline-- education was demonstrated to daughter at bedside. Tachycardia still present this AM- digoxin reinitiated-- please refer to eMAR. Patient ambulated with 1 to wheelchair for transport to floor
--- NOTE | 2021-05-21 10:44 | PC.NURSE ---
obtained care of patient at 0930. patient came over in wheelchair on 50% venti mask. did ambulate to bathroom with assistance upon arrival to room. at that time it was not measured but daughter stated she had a lot of output at that time. patient then sat up to chair and lasix was administered. educated daughter on medication. noted to still have wheezing and ronchi.
--- NOTE | 2021-05-21 14:57 | PC.NURSE ---
RESP CARE NOTE: Dr Lawson requested the patient be NT suctioned earlier today. Upon entering room to suction, daughter explains that her mother is now productively coughing up phlegm and requests NT suction not be done at this time.
--- NOTE | 2021-05-21 15:18 | PC.NURSE ---
since move to new room patient has done well. has been up ambulating in room to bathroom with daughter. has been decreased to two liters nasal cannula. has been sleeping off and on. educated on incentive spirometer. vitals have been stable. tolerated lunch well
[2021-05-22] VITALS: BP 116/55; PULSE 63; RESP 20; TEMP 36.3; O2SAT 90
[2021-05-22 04:00] VITALS: BP 123/52; PULSE 61; RESP 20; TEMP 36.4; O2SAT 91
--- NOTE | 2021-05-22 04:21 | PC.NURSE ---
pt up to chair until approximately 2200, pt rested well until 299 when she had an episode of incontinence, at this point, bed linens changed and patient was bathed, remains on 3L NC with O2 sats 90-93%, no complaints of SOA or pain this shift, daughter has remained at bedside t/o shift
--- NOTE | 2021-05-22 06:22 | PC.NURSE ---
pt unable to get thyroid medication down this morning, daughter stated she didn't think she was able to take pill
[2021-05-22 06:46] LABS: Alanine Aminotransferase 18 U/L (12-78); Albumin Level 2.7 g/dl (3.5-5.0); Albumin/Globulin Ratio 0.8 (1.1-1.8); Alkaline Phosphatase 103 U/L (38-126); Aspartate Amino Transferase 35 U/L (14-36); Blood Urea Nitrogen 28 mg/dl (7-17); Calcium 8.7 mg/dl (8.4-10.2); Chloride 95 mmol/L (98-107); Creatinine Clearance Estimated 47 mL/min (50-200); Estimated Glomerular Filt Rate 69 ml/min (>60); GFR (African American) 84 ML/MIN (>60); Globulin 3.4 g/dL (1.3-3.2); Glucose 85 mg/dl (74-100); Potassium 3.3 mmoL/L (3.5-5.1); Sodium 137 mmol/L (136-145); Total Protein,Serum 6.1 g/dl (6.3-8.2)
[2021-05-22 06:50] LABS: Basophils # 0.1 K/mm3 (0-0.2); Eosinophils # 0.3 K/mm3 (0.0-0.4); Eosinophils % 4.3 % (0.1-12.0); Hematocrit 36.3 % (37.0-47.0); Hemoglobin 11.3 g/dL (12.2-16.2); Lymphocytes # 0.8 K/mm3 (0.7-4.5); Lymphocytes % 9.4 % (10-50); Mean Corpuscular HGB Conc 31.2 g/dL (31.8-35.4); Mean Corpuscular Volume 99.4 fl (81-99); Mean Platelet Volume 8.2 fl (7.4-10.4); Monocytes # 0.6 K/mm3 (0.1-1.0); Monocytes % 7.2 % (1.7-9.3); Neutrophils # 6.3 K/mm3 (1.8-7.8); Neutrophils % 78.1 % (37.0-80.0); Platelet Count 273 K/mm3 (142-424); Red Blood Count 3.65 M/mm3 (4.20-5.40); Red Cell Distribution Width 14.6 % (11.5-17.5)
[2021-05-22 06:53] LABS: Anion Gap 5.3 mEq/L (5-15); Carbon Dioxide 40 mmol/L (22.0-30.0)
--- NOTE | 2021-05-22 06:55 | PC.NURSE ---
care clustered to minimize interruptions in patient's rest, daughter states she is taking her mother home today
[2021-05-22 08:00] VITALS: BP 130/77; PULSE 76; RESP 22; TEMP 36.4; O2SAT 91
--- NOTE | 2021-05-22 09:12 | HMH.DCSUM ---
General - General Admission date:: 05/17/21 Discharge date: 05/22/21 HPI HPI: Ms. Ge is an 81yo F with history of A. fib, hypothyroidism, who presented to the ER with complaint of dyspnea, weakness and 3 days of dry cough. Per daughter at bedside, patient has been complaining of fatigue and cough for the past 3 days. Associated symptoms include congestion. Her is ill with similar symptoms. Patient has not had fevers and patient denies productive cough, hemoptysis, current chest pain, vomiting, abdominal pain, changes in GI/. Additionally, patient takes digoxin for atrial fibrillation. Patient has no history of COPD, asthma or smoking. Patient states she does not have CHF and does not usually have lower extremity edema. On evaluation in the ER, she was found to have right middle lobe pneumonia. Daughter reports concern for aspiration type event a few days ago prior to onset of cough. Afebrile at this time and stable on 2 L nasal cannula. D-dimer elevated in the ER, has lower extremity edema, CTA was negative of the chest. Overall has no complaints this morning. Feels better on oxygen. Afebrile. Hemodynamically stable. Hospital Course Hospital Course: Patient was admitted, placed on Unasyn antibiotic therapy, did well and improved vis-?-vis fever, oxygen status. Because of the very suspicious appearance of her chest x-ray pulmonary was consulted for evaluation for bronchoscopy and filter washer and presser did agree that bronchoscopy would be necessary because of airway narrowing possibility of obstruction. This was performed on the sixth, biopsies were taken, no foreign body was identified, no endobronchial visible lesions were noted but the airway was significantly narrowed in the right bronchus. Patient was very drowsy post procedure, took about 4 to 5 hours to extubate. She did well after extubation, transitioned out of intensive care unit and has been on oxygen therapy at 2 L since that time. Because of her baseline dementia she has had some confusion and hospital associated delirium, treated with environmental changes and no extra medications were done. Today she is improving, is desirous of being discharged home. Still has an oxygen requirement but has no fever, has been able to swallow well. Speech therapy evaluations reviewed. Plan okay to discharge home with Augmentin, steroids, nebulizers and oxygen. We will follow her up on Monday in my office to review biopsies. Objective Vital signs: Temp Pulse Resp BP Pulse Ox 97.6 F 61 20 123/52 L 91 L 05/22/21 04:00 05/22/21 04:00 05/22/21 04:00 05/22/21 04:00 05/22/21 04:00 no acute distress - *Routine HEENT Exam Head: Present: normocephalic Eye: Present: EOMI, PERRL ENT: Present: mucous membranes moist - *Routine Neck Exam Present: supple - *Routine Respiratory Exam Present: rhonchi, wheezes - *Routine Cardiovascular Exam Present: RRR - *Routine Abdominal Exam Present: soft, normoactive bowel sounds. Absent: tenderness - *Routine Extremities Exam Absent: cyanosis, clubbing, edema - *Routine Skin Exam Present: warm. Absent: rash - Detailed Eye Exam Eyelids: Bilateral normal inspection Results Labs on day of discharge: Labs from last 24 hours 05/22/21 05/22/21 05/21/21 06:21 06:21 10:15 WBC 8.0 RBC 3.65 L Hgb 11.3 L Hct 36.3 L MCV 99.4 H MCH 31.0 MCHC 31.2 L RDW 14.6 Plt Count 273 MPV 8.2 Neut % (Auto) 78.1 Lymph % (Auto) 9.4 L [place] % (Auto) 7.2 Eos % (Auto) 4.3 Baso % (Auto) 1.0 Neut # (Auto) 6.3 Lymph # (Auto) 0.8 [place] # (Auto) 0.6 Eos # (Auto) 0.3 Baso # (Auto) 0.1 Sodium 137 138 Potassium 3.3 L 3.8 Chloride 95 L 97 L Carbon Dioxide 40 H 36 H Anion Gap 5.3 8.8 BUN 28 H 28 H Creatinine 0.80 0.80 Estimated Creat Clear 47 47 Estimated GFR 69 69 Est GFR ( Amer) 84 84 Glucose 85 84 Calci
--- NOTE | 2021-05-22 09:50 | PC.NURSE ---
pt's room air saturation 82%
[2021-05-22 10:00] VITALS: O2SAT 82
--- NOTE | 2021-05-22 10:23 | HMH.PHAINT ---
DISCHARGE MEDICATION COUNSELING PROVIDED TO THE DAUGHTER SHE HANDLES THE PATIENT'S MEDICATIONS AND THE PATIENT WAS ASLEEP. DISCUSSED HOW TO GIVE THE MEDICATIONS (AUGMENTIN, DECADRON, DUONEBS) AND WHAT TO EXPECT.
== END 2021-05-22 12:48 | disposition home or self-care (01) | DRG 208 ==
LOC: ER 22:07 → 2ND 22:25 → ICU 05-18 08:12 → 2ND 05-19 11:43
PROVIDERS: Emergency Medicine; Internal Medicine Adolescent Medicine; Internal Medicine Pulmonary Disease; Admitting Provider Family Medicine; Emergency Provider Student in an Organized Health Care Education/Training Program; PCP Internal Medicine Adolescent Medicine; Visit Provider Internal Medicine Adolescent Medicine
DX: J96.01 Acute respiratory failure with hypoxia (principal); I48.92 Unspecified atrial flutter; J18.9 Pneumonia, unspecified organism; I10 Essential (primary) hypertension; E87.6 Hypokalemia; I48.91 Unspecified atrial fibrillation; E78.5 Hyperlipidemia, unspecified; E03.9 Hypothyroidism, unspecified; Z95.1 Presence of aortocoronary bypass graft; F03.90 Unspecified dementia, unspecified severity, without behavioral disturbance, psychotic disturbance, mood disturbance, and anxiety
CPT/HCPCS: 31628; 94662; 31500; 94002; 36415; 71045; 71250; 71275; 76000; 80048; 80053; 82803; 83735; 83880; 84484; 85007; 85025; 85378; 85610; 86140; 87070; 87077; 87102; 87116; 87186; 87205; 87206; 88112; 88305; 89051; 92610; 93005; 93970; 94640; 94761; 96374; 96375; 99284; C9803; J0330; J2405; Q9967; U0003; U0005

== ENCOUNTER 2021-07-01 06:09 | Inpatient (IN) | payer MEDICARE, SELFPAY ==
[2021-07-01] VITALS (22 sets, daily range): BP systolic 121–155; BP diastolic 55–89; PULSE 48–120; RESP 0–32; TEMP 36.3–36.7; O2SAT 82–98; BMI 28.3; BMI 29.2
--- NOTE | 2021-07-01 06:23 | ECG_ITS ---
APPROVED REPORT Exam: Resting ECG HR:102 bpm ECG Measurements Heart Rate 102 AXES QRSd 166 QRS 86 QT 384 T 184 QTc 443 Conclusion ATRIAL FLUTTER/TACHYCARDIA WITH RAPID VENTRICULAR RESPONSE LEFT BUNDLE BRANCH BLOCK [120+ ms QRS DURATION, 80+ ms Q/S IN V1/V2, 85+ ms R IN I/aVL/V5/V6] ABNORMAL ECG UNCONFIRMED REPORT Electronically signed by : Lm Bustillo MD 07/01/2021 20:21:14
[2021-07-01 06:39] LABS: ABG Base Excess 8.7 mmol/L (-2.4-2.3); ABG HCO3 35.7 mmhg (22.0-26.0); ABG Oxygen Saturation 96 % (90-100); ABG PH 7.26 mmol/L (7.35-7.45); ABG PO2 92.4 mmhg (80-100); ABG TCO2 38.2 mmhg (23-27); Oxygen 100 %
[2021-07-01 06:40] LABS: Allen's Test ACCEPTABLE; Source R RADIAL
[2021-07-01 06:41] LABS: ABG PCO2 81.2 mmhg (35.0-45.0)
--- NOTE | 2021-07-01 06:43 | XR_ITS ---
FINAL REPORT CLINICAL HISTORY: SOA COMPARISON: May 21, 2021 FINDINGS: Cardiomegaly is noted. There has been prior median sternotomy. There is marked improvement in the right mid lung opacity on the prior exam. There is worsening left lung opacities worrisome for worsening pneumonia. There are small pleural effusions. There is no pneumothorax. The bony thorax is intact. IMPRESSION: Worsening left lung opacities worrisome for worsening pneumonia. Small pleural effusions. Marked improvement in right midlung opacity. Reviewed, Interpreted and Dictated by Js Valentin III, MD Transcribed by Martin Casper Authenticated by Js Valentin III, MD on 07/01/2021 08:11:32 AM [facility]
--- NOTE | 2021-07-01 06:56 | PC.NURSE ---
called vascular lab for echo at 5297
[2021-07-01 06:58] LABS: Coronavirus 19, PCR Not Detected (NotDetected); Influenza A, PCR Not Detected (NotDetected); Influenza B, PCR Not Detected (NotDetected)
--- NOTE | 2021-07-01 07:00 | HMH.EDSOB ---
ED Disposition Clinical Impression: Chronic atrial fibrillation with rapid ventricular response, S/P aortic valve replacement with bioprosthetic valve Respiratory failure with hypercapnia Qualifiers: Chronicity: acute on chronic Qualified Code(s): J96.22 - Acute and chronic respiratory failure with hypercapnia Congestive heart failure Qualifiers: Heart failure type: unspecified Heart failure chronicity: acute on chronic Qualified Code(s): I50.9 - Heart failure, unspecified Disposition: Admitted As Inpatient Condition on Discharge: Serious - Critical Care Critical Care Time: Yes Attestation: On 07/01/21, the high probability of a clinically significant, sudden or life threatening deterioration of the following system(s) required my full and direct attention, intervention and personal management. The time I documented below is in addition to time spent performing reported procedures but includes the following listed in this critical care notation. Total Critical Care Time: 45 Vital system(s) involved:: Respiratory Failure My critical care processes included: Assessment & monitoring of V/S, Initial and Re-exams, Data Review/Interpretation, Coordinating Care, Medication Orders and management, Documentation Medical Decision Making - Medical Records Medical records reviewed: Yes: I reviewed the patient's medical records. - Raymond Inquiry Pt receiving controlled substance: No Vital Signs: 07/01/21 06:12 07/01/21 06:30 Temperature 98.0 F Temperature Source Rectal Pulse Rate [Right Radial] 102 H Respiratory Rate 32 H Blood Pressure [Right Arm] 155/76 H Blood Pressure Mean [Right Arm] 102 Blood Pressure Source [Right Arm] Automatic Cuff Blood Pressure Position [Right Arm] Sitting 02 Sat by Pulse Oximetry 82 L 95 Oxygen Delivery Method Nasal Cannula Non-Rebreather Oxygen Flow Rate (LPM) 2 - Lab Data Lab results reviewed: Yes: I reviewed the patient's lab results. Lab Results 07/01/21 06:36: Specimen Source R radial, O2 % 100, ABG pH 7.26 L, ABG pCO2 81.2 H, ABG pO2 92.4, ABG HCO3 35.7 H, ABG Total CO2 38.2 H, ABG O2 Saturation 96, ABG Base Excess 8.7 H, Dami Test Acceptable 07/01/21 06:50: WBC 9.9, RBC 3.56 L, Hgb 11.5 L, Hct 36.3 L, MCV 101.9 H, MCH 32.4 H, MCHC 31.8, RDW 19.7 H, Plt Count 180, MPV 8.0, Neut % (Auto) 80.6 H, Lymph % (Auto) 13.9, Hunt % (Auto) 4.8, Eos % (Auto) 0.4, Baso % (Auto) 0.3, Neut # (Auto) 8.0 H, Lymph # (Auto) 1.4, Hunt # (Auto) 0.5, Eos # (Auto) 0.0, Baso # (Auto) 0.0, ESR 27 07/01/21 06:50: Sodium 138, Potassium 4.2, Chloride 97 L, Carbon Dioxide 42 H*, Anion Gap 3.2 L, BUN 27 H, Creatinine 0.60, Estimated Creat Clear 47, Estimated GFR 96, Est GFR ( Amer) 116, Glucose 114 H, Calcium 8.4, Total Bilirubin 1.6 H, Direct Bilirubin 0.3, Conjugated Bilirubin 0.0, Indirect Bilirubin 1.3 H, Unconjugated Bilirubin 1.2 H, AST 59 H, ALT 58, Alkaline Phosphatase 113, Troponin I 0.04 H, C-Reactive Protein 5.6 H, NT-Pro-B Natriuret Pep 1750 H, Total Protein 6.5, Albumin 3.5, TSH 2.02, Thyroxine (T4) 8.6 07/01/21 06:50: SARS-CoV-2 (PCR) Not detected, Influenza A Untype (PCR) Not detected, Influenza Type B (PCR) Not detected 07/01/21 06:50: Lactate 1.4 07/01/21 06:50: PT 11.1, INR 0.98 07/01/21 06:50: Magnesium 1.9 07/01/21 07:05: Urine Color Alyse, Urine Appearance Clear, Urine pH 6.0, Ur Specific Velarde >= 1.030, Urine Protein 1+, Urine Glucose (UA) Negative, Urine Ketones Negative, Urine Blood Negative, Urine Nitrate Negative, Urine Bilirubin Negative, Urine Urobilinogen 1.0, Ur Leukocyte Esterase Negative, Urine WBC Occasional, Ur Squamous Epith Cells 3-5, Urine Bacteria Trace Result diagrams: 07/01/21 06:50 07/01/21 06:50 Orders (Tests/Meds): ED MEDICATIONS Discontinued Medications Generic Name Dose Route Start Last Admin Trade Name Freq PRN Reason Stop Dose Admin Furosemide 40 mg 07/01/21 07:40 07/01/21 07:42 Furosemide 40mg/4ml Vial IV 07/01/21 07:41 40 mg ONCE O
[2021-07-01 07:08] LABS: Chloride 97 mmol/L (98-107); Potassium 4.2 mmoL/L (3.5-5.1); Sodium 138 mmol/L (136-145)
[2021-07-01 07:09] LABS: Basophils % 0.3 % (0.1-2.0); Eosinophils % 0.4 % (0.1-12.0); Hematocrit 36.3 % (37.0-47.0); Hemoglobin 11.5 g/dL (12.2-16.2); Lymphocytes # 1.4 K/mm3 (0.7-4.5); Lymphocytes % 13.9 % (10-50); Mean Corpuscular HGB Conc 31.8 g/dL (31.8-35.4); Mean Corpuscular Hemoglobin 32.4 pg (27.0-31.2); Mean Corpuscular Volume 101.9 fl (81-99); Monocytes # 0.5 K/mm3 (0.1-1.0); Monocytes % 4.8 % (1.7-9.3); Neutrophils % 80.6 % (37.0-80.0); Platelet Count 180 K/mm3 (142-424); Red Blood Count 3.56 M/mm3 (4.20-5.40); Red Cell Distribution Width 19.7 % (11.5-17.5); White Blood Count 9.9 K/mm3 (4.8-10.8)
[2021-07-01 07:11] LABS: Alanine Aminotransferase 58 U/L (12-78); Albumin Level 3.5 g/dl (3.5-5.0); Alkaline Phosphatase 113 U/L (38-126); Aspartate Amino Transferase 59 U/L (14-36); Bilirubin,Direct 0.3 mg/dl (0.0-0.4); Bilirubin,Indirect 1.3 mg/dL (0.0-0.9); Bilirubin,Total 1.6 mg/dl (0.2-1.3); Bilirubin,Unconjugated 1.2 mg/dL (0.0-1.1); Blood Urea Nitrogen 27 mg/dl (7-17); Calcium 8.4 mg/dl (8.4-10.2); Creatinine Clearance Estimated 47 mL/min (50-200); Estimated Glomerular Filt Rate 96 ml/min (>60); GFR (African American) 116 ML/MIN (>60); Glucose 114 mg/dl (74-100); Total Protein,Serum 6.5 g/dl (6.3-8.2)
[2021-07-01 07:12] LABS: Magnesium 1.9 mg/dl (1.6-2.3)
[2021-07-01 07:14] LABS: INR 0.98 (0.9-1.1); Prothrombin Time 11.1 seconds (10.1-12.5)
[2021-07-01 07:16] LABS: C-Reactive Protein 5.6 mg/L (0-4)
[2021-07-01 07:23] LABS: NT Pro Brain Natriuretic Pep. 1750 pg/mL (0-450)
[2021-07-01 07:26] LABS: Troponin I 0.04 ng/ml (0.00-0.034)
[2021-07-01 07:28] LABS: Anion Gap 3.2 mEq/L (5-15); Carbon Dioxide 42 mmol/L (22.0-30.0)
--- NOTE | 2021-07-01 07:28 | CA_ITS ---
APPROVED REPORT EXAM: Comprehensive 2D, Doppler, and color-flow Echocardiogram [employer]: Alta Prabhakar, RCS, RVS Ht: 5 ft 0 in Wt: 145lbs BSA: 1.63 BP: 140/80 mmHg Indications: CHF, PHTN, Murmur, BOBBY, Elevated troponin 2D Dimensions Aortic Root 2.29 cm LA Volume 124.40 mL Left Atrium 5.30 cm LVOT 1.76 cm (M/F) 1.5-2.5 M-Mode Dimensions RVDd 2.59 cm (0.9-2.6) LA Diam 5.85 cm (1.9-4.0) LVDd 3.97 cm (3.5-5.7) Ao Diam 2.61 cm (2.0-3.7) LVDs 3.09 cm (3.5-5.7) IVSd 1.58 cm (0.6-1.1) PWd 1.01 cm (0.6-1.1) EF (Teich) 45.30% EPSs 1.33 cm FS 22.20% EDV (Teich) 68.80 mL TAPSE 0.98 (<1.7) ESV (Teich) 37.60 mL LV Diastology E Decel Time 193.00 (160-240 msec) E/A Ratio 2.26 MED E' 6.40 (< 7 cm/sec) MED A' 4.40 cm/s E'/MED E' Ratio 28.37 (>14) LAT E' 7.30 (<10 cm/sec) LAT A' 4.40 cm/s E/LAT E' Ratio 24.88 (>14) Aortic Valve LVOT Max 105.00 (70-110 cm/s) LVOT VTI 21.15 cm AoV Peak Reed. 227.00 (50-130 cm/s) AO Peak GR. 20.70 mmHg AO Mean GR. 9.60 (<5 mmHg) AO VTI 44.31 (18-25 cm) JONATHON (VTI) 1.16 (2.5-4.5 cm2) Mitral Valve MV A Velocity 80.00 (40-130 cm/s) E/A Ratio 2.26 MV Decel. Time 193.00 (160-240 ms) MV Mean Gr. 5.10 (<2mmHg) MV PHT 53.00 ms Pulmonary Valve PV Peak Velocity 93.00 (50-150 cm/s) ME End VMAX 184.00 cm/s Tricuspid Valve TR P. Velocity 347.00 cm/s RAP Estimate 10.00 mmHg RVSP 58.10 mmHg Left Ventricle Left atrium is markedly enlarged, left ventricle is normal size, moderate concentric left ventricular hypertrophy, status post myomectomy, visually estimated ejection fraction 55% with no obvious regional wall motion abnormality, grade 2 diastolic dysfunction seen with tissue Doppler evidence of raise left atrial pressure. Right Ventricle Right atrium is moderately enlarged, right ventricle is mildly dilated with normal contractility. Aortic Valve Bioprosthetic valve noted in the aortic position valve is well-seated, the mean gradient across the bioprosthetic valve is 10 mmHg which is within acceptable range for prosthetic valve, there is no aortic insufficiency. There is no dynamic obstruction of the left ventricular outflow tract seen. Mitral Valve Mitral valve leaflets are minimally thickened, there is no systolic anterior motion of the mitral valve leaflet, mitral inflow velocity is increased to 1.8 m/s, mitral valve area is 4.5 cm??? by pressure half-time does not represent mitral stenosis. There is mild mitral regurgitation. Tricuspid Valve Tricuspid valve leaflets are minimally thickened, there is moderate tricuspid regurgitation, calculated right ventricular systolic pressure is 58 mmHg. Pulmonic Valve Pulmonic valve is poorly visualized, there is mild pulmonic insufficiency. Great Vessels Aortic root is normal size. Inferior vena cava is mildly dilated without significant inspiratory collapse. Pericardium Trace pericardial effusion noted. Conclusion 1. Markedly enlarged left atrium, normal left ventricular size, status post myomectomy, visually estimated ejection fraction is 55% with no regional wall motion abnormality, there is no dynamic obstruction of of the left ventricular outflow tract seen, there is no systolic anterior motion of the mitral valve leaflet. Grade 2 diastolic dysfunction seen with tissue Doppler evidence of raise left atrial pressure. 2. Minimally thickened mitral valve without mitral stenosis, there
[2021-07-01 07:30] LABS: T4 (Thyroxine) 8.6 ug/dl (5.53-11.0)
[2021-07-01 07:34] LABS: Erythrocyte Sedimentation Rate 27 mm/hr (0-30); Lactic Acid 1.4 mmol/L (0.7-2.1)
[2021-07-01 07:36] LABS: Microscopic, Urine URINE MICROSCOPIC (MICROSCOPIC)
[2021-07-01 07:41] LABS: Appearance,Urine CLEAR (Clear); Bilirubin,Urine Negative (Negative); Blood, Urine Negative (Negative); Color,Urine AMBER (Yellow); Glucose,Urine (UA) Negative (Negative); Ketones,Urine Negative (Negative); Leukocyte Esterase,Urine Negative (Negative); Nitrate,Urine Negative (Negative); Protein,Urine 1+ (Negative); Specific Gravity, Urine >= 1.030 (1.005-1.030)
[2021-07-01 07:44] LABS: Thyroid Stimulating Hormone 2.02 uIU/mL (0.465-4.68)
[2021-07-01 07:54] LABS: Bacteria,Urine Trace /lpf; WBC,Urine Occasional #/hpf (0-3)
--- NOTE | 2021-07-01 09:20 | P.CONPHA_ITS ---
[facility] VTE Monitoring - Patient Demographics Admission date: 07/01/21 Report Date: 07/01/21 Time: 09:20 Allergies/Adverse Reactions: Patient Allergies levofloxacin [From LEVAQUIN] Allergy (Unknown, Verified 05/17/21 23:54) Height: 1.52 m Weight: 65.771 kg Patient Problems: Current Active Problems (Last Updated 12/11/18 @ 14:04 by Chary Crouch RN) Chronic atrial fibrillation with rapid ventricular response (Acute) Respiratory failure with hypercapnia (Acute) Congestive heart failure (Acute) S/P aortic valve replacement with bioprosthetic valve (Chronic) - VTE Risk Labs: VTE Related Lab Results Hgb 11.5 g/dL (12.2-16.2) L 07/01/21 06:50 Hct 36.3 % (37.0-47.0) L 07/01/21 06:50 Plt Count 180 K/mm3 (142-424) 07/01/21 06:50 PT 11.1 seconds (10.1-12.5) 07/01/21 06:50 INR 0.98 (0.9-1.1) 07/01/21 06:50 BUN 27 mg/dl (7-17) H 07/01/21 06:50 Creatinine 0.60 mg/dl (0.52-1.04) 07/01/21 06:50 Estimated Creat Clear 47 mL/min (50-200) 07/01/21 06:50 - Prophylaxis VTE Prophylaxis Ordered?: Yes Types of VTE Prophylaxis: TEDS Knee High Location of Applied Device: Bilateral Lower Extremeties
--- NOTE | 2021-07-01 09:54 | PC.NURSE ---
called report to josesito aquino
--- NOTE | 2021-07-01 09:57 | PC.NURSE ---
Received report from Naima Teague RN @ this time. Notified RT for assistance w/ transport.
[2021-07-01 10:08] LABS: Troponin I 0.05 ng/ml (0.00-0.034)
[2021-07-01 11:20] LABS: ABG Base Excess 14.9 mmol/L (-2.4-2.3); ABG HCO3 41.4 mmhg (22.0-26.0); ABG Oxygen Saturation 96 % (90-100); ABG PO2 84.4 mmhg (80-100)
[2021-07-01 11:28] LABS: Allen's Test Patient Unable; Source Left Radial
--- NOTE | 2021-07-01 12:08 | PC.WOUNDNOTE ---
Wound present to Kofi sol. Draining serosang fluid
--- NOTE | 2021-07-01 12:38 | HMH.PULMCON ---
*Admission Date: 07/01/21 *Reason for consult:: Acute hypoxic hypercarbic respiratory failure *History of present illness: #Acute on chronic hypoxic hypercarbic respiratory failure: Ms. Ge is a 81-year-old female history of dementia, no significant smoking history no recent prior respiratory complaints up until her most recent hospital admission for right upper lobe pneumonia status post bronchoscopy treatment completion presented to the hospital worsening respiratory status and pulmonary was called for further management. [facility] History Medical History: Reports:: Atrial Fibrillation, Congestive Heart Failure, Coronary Artery Disease, Heart Murmur, Hyperlipidemia, Hypertension, Valvular Heart Disease Denies:: Cancer, Diabetes Mellitus Type 1, Diabetes Mellitus Type 2, Internal Pacemaker, Lung Disease, MRSA, Seizures *Have you ever received a pneumonia vaccine?: No *Have you received a flu vaccine this season?: No Other Medical History: Reports: Cataracts, Hypothyroidism. Denies: Blood Transfusion Reaction Laterality Cases: Bilateral: Cataract Other Surgeries: Yes: Cardiac Catheterization, Cardiac Surgery, Cholecystectomy, Other Valve Replacement, Other (JULEE 2019). No: Pacemaker Amputation: No Fractures: No - *Social History Smoking Status: Unknown if ever smoked Alcohol Intake: never Substance Use Type: denies use *Occupational Status:: retired Housing: house Household Members: spouse *Travel in the last 8 weeks: None Family Hx:: Coronary Artery Disease, Heart Attack, Stroke ROS - Review of Systems Review of systems:: unable to obtain Patient obtunded unable to arouse Meds Home Medications Medication Instructions Recorded Confirmed Type atorvastatin 80 mg tablet 80 mg PO HS tab 12/11/18 07/01/21 History levothyroxine 88 mcg tablet 88 mcg PO DAILY tab 12/11/18 07/01/21 History Amlodipine Besylate 5 mg PO DAILY 04/27/20 07/01/21 History Furosemide [Furosemide 20mg Tab*] 20 mg PO DAILY 05/18/21 07/01/21 History Cholecalciferol (Vitamin D3) 1,000 unit PO DAILY 07/01/21 07/01/21 History [Vitamin D3 1,000 Unit Cap] Ferrous Sulfate [Ferrous Sulfate 325 mg PO DAILY 07/01/21 07/01/21 History 325mg Tab] Memantine HCl [Memantine 10mg 10 mg PO BID 07/01/21 07/01/21 History Tablet] Metoprolol Tartrate [Lopressor 12.5 mg PO BID 07/01/21 07/01/21 History 25mg tablet] Allergies Allergy/AdvReac Type Severity Reaction Status Date / Time levofloxacin [From LEVAQUIN] Allergy Unknown Verified 07/01/21 11:05 Exam - Constitutional Constitutional:: Absent: no acute distress, comfortable - HENMT Exam HENMT: Present: normocephalic - Eye Exam Eyes:: Present: normal appearance both eyes and related structures - Neck Exam Neck:: Present: normal visual inspection - Respiratory Exam Respiratory:: Present: respiratory distress, decreased breath sounds, wheezing. Absent: able to speak in complete sentences - Cardiovascular Exam Cardiac:: Present: S1, S2 - GI Exam GI:: Present: soft - Skin Exam Skin: Present: warm, rash - Neurological Exam Neurological: Absent: alert, awake, normal cognition - Extremities Exam Extremities: Present: no cyanosis, no clubbing, edema Internal Medicine - CN: Reslt - Labs CBC & Chem 7: 07/01/21 06:50 07/01/21 06:50 Labs: Short CBC 07/01/21 Range/Units 06:50 WBC 9.9 (4.8-10.8) K/mm3 Hgb 11.5 L (12.2-16.2) g/dL Hct 36.3 L (37.0-47.0) % Plt Count 180 (142-424) K/mm3 BMP 07/01/21 06:50 Sodium 138 Potassium 4.2 Chloride 97 L Carbon Dioxide 42 H* BUN 27 H Creatinine 0.60 Glucose 114 H Calcium 8.4 Cardiac Enzymes 07/01/21 07/01/21 Range/Units 06:50 09:31 Troponin I 0.04 H 0.05 H (0.00-0.034) ng/ml Liver Function 07/01/21 Range/Units 06:50 Total Bilirubin 1.6 H (0.2-1.3) mg/dl Direct Bilirubin 0.3 (0.0-0.4) mg/dl AST 59 H (14-36) U/L ALT 58 (12-78) U/L Alkaline Phosphatase
[2021-07-01 13:25] LABS: Troponin I 0.05 ng/ml (0.00-0.034)
--- NOTE | 2021-07-01 13:43 | HMH.PHAINT ---
home medication list verified using list from [facility] office and pt interview
--- NOTE | 2021-07-01 13:49 | HMH.HP ---
*Admission Date: 07/01/21 *Chief complaint: Low oxygen levels, swelling, obtundation *History of present illness: 81-year-old female with history of diastolic heart failure and coronary vascular disease as well as mild dementia who has had fairly good pulmonary status until approximately 4 weeks ago when she was diagnosed with a right middle lobe pneumonia. Admitted to [facility] and because of significant abnormality of the bronchus on CT scan was subjected to bronchoscopy, which fortunately revealed no evidence of malignancy. She recovered from this episode was discharged home but then presented to [facility] about 2 weeks ago with dyspnea, pneumonia symptoms and was admitted there for approximately 5 days. Diagnosed with diastolic heart failure, diuresed which per the daughter was successful resulted in hypokalemia and bradycardia, and was discharged home on a new oxygen requirement and antibiotics about 5 days ago. Initially did well, but was on steroids which her daughter said dramatically increased her p.o. intake of salty chips, sandwiches, etc. and she stated that yesterday she noticed that her mother had begun accumulating fluid on her ankles which is extremely unusual for her and began to have an increased oxygen requirement. This morning she had significant obtundation and she was brought to the ER. Found to have a respiratory acidosis and placed on BiPAP, found to have elevated BNP levels, very minimally elevated troponin levels but otherwise normal renal function. Chest x-ray showed clearing of prior infiltrates but some evidence of fluid overload. She is been admitted to second floor for further management. [facility] History I have reviewed the patient's past medical history: Yes Medical History: Reports:: Atrial Fibrillation, Congestive Heart Failure, Coronary Artery Disease, Heart Murmur, Hyperlipidemia, Hypertension, Valvular Heart Disease Denies:: Cancer, Diabetes Mellitus Type 1, Diabetes Mellitus Type 2, Internal Pacemaker, Lung Disease, MRSA, Seizures *Have you ever received a pneumonia vaccine?: No *Have you received a flu vaccine this season?: No Other Medical History: Reports: Cataracts, Hypothyroidism. Denies: Blood Transfusion Reaction Laterality Cases: Bilateral: Cataract Other Surgeries: Yes: Cardiac Catheterization, Cardiac Surgery, Cholecystectomy, Other Valve Replacement, Other (JULEE 2019). No: Pacemaker Amputation: No Fractures: No - *Social History Smoking Status: Unknown if ever smoked Alcohol Intake: never Substance Use Type: denies use *Occupational Status:: retired Housing: house Household Members: spouse *Travel in the last 8 weeks: None Family Hx:: Coronary Artery Disease, Heart Attack, Stroke Review of Systems - Review of Systems Review of systems:: unable to obtain - *Neurologic Reports confusion, Reports weakness, Denies localized weakness, Denies seizure-like activity Meds Home Medications Medication Instructions Recorded Confirmed Type atorvastatin 80 mg tablet 80 mg PO HS tab 12/11/18 07/01/21 History levothyroxine 88 mcg tablet 88 mcg PO DAILY tab 12/11/18 07/01/21 History Amlodipine Besylate 5 mg PO DAILY 04/27/20 07/01/21 History Furosemide [Furosemide 20mg Tab*] 20 mg PO DAILY 05/18/21 07/01/21 History Cholecalciferol (Vitamin D3) 1,000 unit PO DAILY 07/01/21 07/01/21 History [Vitamin D3 1,000 Unit Cap] Digoxin [Digoxin 0.125mg Tablet] 125 mcg PO MOWEFR 07/01/21 07/01/21 History Ferrous Sulfate [Ferrous Sulfate 325 mg PO DAILY 07/01/21 07/01/21 History 325mg Tab] Memantine HCl [Memantine 10mg 10 mg PO BID 07/01/21 07/01/21 History Tablet] Metoprolol Tartrate [Lopressor 12.5 mg PO BID 07/01/21 07/01/21 History 25mg tablet] carvediloL [Carvedilol 12.5mg Tab] 12.5 mg PO BID 07/01/21 07/01/21 History Allergies Allergy/AdvReac Type Severity Reaction Status Date / Time levofloxacin [From LEVAQUIN] Allergy Unknown Verified 07/01/21 11:05
--- NOTE | 2021-07-01 15:08 | HMH.CNCARD ---
History of Present Illness Consult date: 07/01/21 Requesting physician: Lm Bustillo Consult reason: shortness of breath Chief complaint: SOA History of present illness: This is an 81-year-old white female who was admitted to the hospital with shortness of breath. She is recently been admitted here at [facility] for pneumonia approximately a month ago. She was admitted at [facility] about 2 weeks ago for pneumonia symptoms and acute renal insufficiency. She was just discharged from there 5 days ago. Since that time the patient has continued to be more short of breath. She was on steroids and her daughter states that she had increased her p.o. intake of salty chips and same wedges and mostly staff that she should not have been eating. Yesterday they noticed that she had edema in her bilateral lower extremities and she was using increasingly more amounts of her home oxygen. This morning her family found her obtunded and brought her to the emergency department. On arrival her oxygen saturations were 82%. During my examination the patient remains obtunded. She is not following any commands or answering any of my questions. The patient is having an acute exacerbation of diastolic congestive heart failure. 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 She appears to be in no distress currently and remains on BiPAP for her respiratory acidosis. [facility] History I have reviewed the patient's past medical history: Yes Medical History: Reports:: Atrial Fibrillation, Congestive Heart Failure, Coronary Artery Disease, Heart Murmur, Hyperlipidemia, Hypertension, Valvular Heart Disease Denies:: Cancer, Diabetes Mellitus Type 1, Diabetes Mellitus Type 2, Internal Pacemaker, Lung Disease, MRSA, Seizures *Have you ever received a pneumonia vaccine?: No *Have you received a flu vaccine this season?: No Other Medical History: Reports: Cataracts, Hypothyroidism. Denies: Blood Transfusion Reaction Laterality Cases: Bilateral: Cataract Other Surgeries: Yes: Cardiac Catheterization, Cardiac Surgery, Cholecystectomy, Other Valve Replacement, Other (JULEE 2019). No: Pacemaker Amputation: No Fractures: No - *Social History Smoking Status: Unknown if ever smoked Alcohol Intake: never Substance Use Type: denies use *Occupational Status:: retired Housing: house Household Members: spouse *Travel in the last 8 weeks: None Family Hx:: Coronary Artery Disease, Heart Attack, Stroke Meds Home Medications Medication Instructions Recorded Confirmed Type atorvastatin 80 mg tablet 80 mg PO HS tab 12/11/18 07/01/21 History levothyroxine 88 mcg tablet 88 mcg PO DAILY tab 12/11/18 07/01/21 History Amlodipine Besylate 5 mg PO DAILY 04/27/20 07/01/21 History Furosemide [Furosemide 20mg Tab*] 20 mg PO DAILY 05/18/21 07/01/21 History Cholecalciferol (Vitamin D3) 1,000 unit PO DAILY 07/01/21 07/01/21 History [Vitamin D3 1,000 Unit Cap] Digoxin [Digoxin 0.125mg Tablet] 125 mcg PO MOWEFR 07/01/21 07/01/21 History Ferrous Sulfate [Ferrous Sulfate 325 mg PO DAILY 07/01/21 07/01/21 History 325mg Tab] Memantine HCl [Memantine 10mg 10 mg PO BID 07/01/21 07/01/21 History Tablet] Metoprolol Tartrate [Lopressor 12.5 mg PO BID 07/01/21 07/01/21 History 25mg tablet] carvediloL [Carvedilol 12.5mg Tab] 12.5 mg PO BID 07/01/21 07/01/21 History Allergies Allergy/AdvReac Type Severity Reaction Status Date / Time levofloxacin [From LEVUIN] Allergy Unknown Verified 07/01/21 11:05 Exam Vital signs and Labs for Last 24 Hours: Temp Pulse Resp BP Pulse Ox 97.6 F 70 20 136/67 93 L 07/01/21 12:00 07/01/21 13:05 07/01/21 12:00 07/01/21 12:00 07/01/21 14:05 L
[2021-07-01 16:22] LABS: ABG Base Excess 20.4 mmol/L (-2.4-2.3); ABG Oxygen Saturation 95 % (90-100); ABG PH 7.35 mmol/L (7.35-7.45); ABG TCO2 48.6 mmhg (23-27); Oxygen 70 %; Pressure Support 8; Tidal Volume bipap 16/8; Vent Rate 20
[2021-07-01 16:23] LABS: ABG PCO2 85.2 mmhg (35.0-45.0); Allen's Test Patient Unable; Source Right Radial
--- NOTE | 2021-07-01 17:59 | PC.NURSE ---
Addendum entered by Sonia Maynard RN 07/01/21 18:35: Telephone consent for JULEE obtained from pt's , Dave Ge @ 1832. Verified w/ T DIMITRY Brian Original Note: Pt remains on BIPAP, FIO2 70%. Cont pulse ox in place per protocol, SPO2 90-93%. Lungs w/ ronchi throughout upon auscultation. A-Flutter on tely, controlled rate. Abdomen soft, non-tender w/ active BS. No BM this shift. Lowry to drain @ bedside w/ sediment/ritesh urine noted. Polymem placed on the bridge of pt's nose to prevent further breakdown from BIPAP. Dressing also applied to R sol as well. Pt is total care, turned Q2H. Oral care performed Q2H. Dentures were given to pt's daughter this AM. She remains NPO per Dr. Lawson. No complaints voiced. She is alert to self only @ this time. Safety in place. Call frida w/in reach.
[2021-07-02] VITALS (13 sets, daily range): BP systolic 123–151; BP diastolic 61–74; PULSE 62–94; RESP 16–25; TEMP 36.3–37; O2SAT 91–98; BMI 28.6
[2021-07-02 00:02] LABS: ABG Base Excess 16.6 mmol/L (-2.4-2.3); ABG Oxygen Saturation 97 % (90-100); ABG PH 7.49 mmol/L (7.35-7.45); ABG TCO2 41.6 mmhg (23-27)
[2021-07-02 00:03] LABS: Oxygen 70 %
[2021-07-02 00:04] LABS: Allen's Test Non Applicable; Pressure Support 10; Source Left Brachial
[2021-07-02 00:05] LABS: ABG PCO2 53.9 mmhg (35.0-45.0)
--- NOTE | 2021-07-02 06:14 | PC.NURSE ---
This morning pt became very restless and confused, pt pulled her Galeano out and was removing her bipap mask and stating she was going home. Placed a new galeano and applied mittens to patient's hands. Bed alarm has remained on for safety.
[2021-07-02 06:40] LABS: Chloride 92 mmol/L (98-107); Potassium 3.2 mmoL/L (3.5-5.1); Sodium 139 mmol/L (136-145)
[2021-07-02 06:41] LABS: Alanine Aminotransferase 48 U/L (12-78); Albumin Level 3.1 g/dl (3.5-5.0); Alkaline Phosphatase 89 U/L (38-126); Aspartate Amino Transferase 45 U/L (14-36); Bilirubin,Direct 0.3 mg/dl (0.0-0.4); Bilirubin,Indirect 1.4 mg/dL (0.0-0.9); Bilirubin,Total 1.7 mg/dl (0.2-1.3); Bilirubin,Unconjugated 1.5 mg/dL (0.0-1.1); Chol/HDL Ratio 2.5 (1-3.5); Cholesterol 112 mg/dl (140-200); HDL Cholesterol 45 mg/dl (40-60); Total Protein,Serum 5.9 g/dl (6.3-8.2); Triglycerides 64 mg/dl (30-150); VLDL Cholesterol 13 mg/dL (0-40)
[2021-07-02 06:43] LABS: Basophils % 0.1 % (0.1-2.0); Hematocrit 32.8 % (37.0-47.0); Hemoglobin 10.5 g/dL (12.2-16.2); Lymphocytes % 9.3 % (10-50); Mean Corpuscular Hemoglobin 32.9 pg (27.0-31.2); Mean Corpuscular Volume 102.6 fl (81-99); Mean Platelet Volume 8.1 fl (7.4-10.4); Monocytes # 0.7 K/mm3 (0.1-1.0); Monocytes % 6.4 % (1.7-9.3); Neutrophils % 84.1 % (37.0-80.0); Platelet Count 182 K/mm3 (142-424); Red Cell Distribution Width 20.5 % (11.5-17.5); White Blood Count 10.7 K/mm3 (4.8-10.8)
[2021-07-02 06:43] LABS: Blood Urea Nitrogen 28 mg/dl (7-17); Calcium 7.8 mg/dl (8.4-10.2); Creatinine Clearance Estimated 46 mL/min (50-200); Estimated Glomerular Filt Rate 69 ml/min (>60); GFR (African American) 84 ML/MIN (>60); Glucose 85 mg/dl (74-100)
[2021-07-02 06:44] LABS: Magnesium 1.8 mg/dl (1.6-2.3)
[2021-07-02 06:56] LABS: Direct LDL Cholesterol 50.63 mg/dL (100-129)
--- NOTE | 2021-07-02 07:28 | HMH.ACPN2 ---
Internal Medicine - PN: Subj *Date: 07/02/21 *Time: 08:41 Interval history: Patient did well overnight. Responded to diuresis. Breathing better today, off BiPAP and on 4 L nasal cannula oxygen. More oriented to self and surroundings. Daughter at bedside. Denies any chest pain, shortness of breath, nausea or vomiting. Exam Vital signs and Labs for Last 24 Hours: Temp Pulse Resp BP Pulse Ox 97.3 F L 75 20 123/61 95 07/02/21 04:00 07/02/21 06:24 07/02/21 04:00 07/02/21 04:00 07/02/21 06:24 Laboratory Results - last 24 hr 07/01/21 06:50: ESR 27 07/01/21 06:50: Sodium 138, Potassium 4.2, Chloride 97 L, Carbon Dioxide 42 H*, Anion Gap 3.2 L, BUN 27 H, Creatinine 0.60, Estimated Creat Clear 47, Estimated GFR 96, Est GFR ( Amer) 116, Glucose 114 H, Calcium 8.4, Total Bilirubin 1.6 H, Direct Bilirubin 0.3, Conjugated Bilirubin 0.0, Indirect Bilirubin 1.3 H, Unconjugated Bilirubin 1.2 H, AST 59 H, ALT 58, Alkaline Phosphatase 113, Troponin I 0.04 H, C-Reactive Protein 5.6 H, NT-Pro-B Natriuret Pep 1750 H, Total Protein 6.5, Albumin 3.5, TSH 2.02, Thyroxine (T4) 8.6 07/01/21 06:50: SARS-CoV-2 (PCR) Not detected, Influenza A Untype (PCR) Not detected, Influenza Type B (PCR) Not detected 07/01/21 06:50: Lactate 1.4 07/01/21 06:50: PT 11.1, INR 0.98 07/01/21 06:50: Magnesium 1.9 07/01/21 07:05: Urine Color Alyse, Urine Appearance Clear, Urine pH 6.0, Ur Specific [place] >= 1.030, Urine Protein 1+, Urine Glucose (UA) Negative, Urine Ketones Negative, Urine Blood Negative, Urine Nitrate Negative, Urine Bilirubin Negative, Urine Urobilinogen 1.0, Ur Leukocyte Esterase Negative, Urine WBC Occasional, Ur Squamous Epith Cells 3-5, Urine Bacteria Trace 07/01/21 09:31: Troponin I 0.05 H 07/01/21 11:00: Specimen Source Left radial, O2 % 100% nrb, ABG pH 7.30 L, ABG pCO2 87.0 H, ABG pO2 84.4, ABG HCO3 41.4 H, ABG Total CO2 44.0 H, ABG O2 Saturation 96, ABG Base Excess 14.9 H, Dami Test Patient unable 07/01/21 12:46: Troponin I 0.05 H 07/01/21 16:01: Specimen Source Right radial, O2 % 70, ABG pH 7.35, ABG pCO2 85.2 H, ABG pO2 80.0, ABG HCO3 46.0 H, ABG Total CO2 48.6 H, ABG O2 Saturation 95, ABG Base Excess 20.4 H, Dami Test Patient unable, Vent Rate 20, Tidal Volume bipap 16/8 07/01/21 20:00: Specimen Source Left brachial, O2 % 70, ABG pH 7.49 H, ABG pCO2 53.9 H, ABG pO2 81.0, ABG HCO3 40.0 H, ABG Total CO2 41.6 H, ABG O2 Saturation 97, ABG Base Excess 16.6 H, Dami Test Non applicable, Tidal Volume bipap 18/8 07/02/21 05:25: Total Bilirubin 1.7 H, Direct Bilirubin 0.3, Conjugated Bilirubin 0.0, Indirect Bilirubin 1.4 H, Unconjugated Bilirubin 1.5 H, AST 45 H, ALT 48, Alkaline Phosphatase 89, Total Protein 5.9 L, Albumin 3.1 L D, Triglycerides 64, Cholesterol 112 L, LDL Cholesterol Direct 50.63 L, VLDL Cholesterol 13, HDL Cholesterol 45, Cholesterol/HDL Ratio 2.5 07/02/21 05:32: WBC 10.7, RBC 3.20 L, Hgb 10.5 L, Hct 32.8 L, MCV 102.6 H, MCH 32.9 H, MCHC 32.0, RDW 20.5 H, Plt Count 182, MPV 8.1, Neut % (Auto) 84.1 H, Lymph % (Auto) 9.3 L, [place] % (Auto) 6.4, Eos % (Auto) 0.0 L, Baso % (Auto) 0.1, Neut # (Auto) 9.0 H, Lymph # (Auto) 1.0, [place] # (Auto) 0.7, Eos # (Auto) 0.0, Baso # (Auto) 0.0 I & O for Last 24 hours: Intake & Output 06/29/21 06/30/21 07/01/21 07/02/21 23:59 23:59 23:59 23:59 Intake Total 50 / 50 Output Total 1100 / 2400 1300 / 1300 Balance -1050 / -2350 -1300 / -1300 Weight 65.8 kg 64.41 kg Narrative: - Constitutional NAD on 4L NC, Alert, oriented to self - *Routine HEENT Exam Head: Present: normocephalic Eye: Present: EOMI, PERRL ENT: Present: mucous membranes moist - *Routine Neck Exam Present: supple. Absent: lymphadenopathy - *Routine Respiratory Exam Present: improved aeration, no wheeze. faint bibasilar crackles. - *Routine Cardiovascular Exam Present: RRR, murmur - *Routine Abdominal Exam Present: soft, normoactive bowel sounds. Absent: tenderness - *Routine Extremities Exam 1+ ankl
[2021-07-02 07:38] LABS: Anion Gap 5.2 mEq/L (5-15); Carbon Dioxide 45 mmol/L (22.0-30.0)
--- NOTE | 2021-07-02 08:37 | HMH.PNCARD ---
Subjective Date: 07/02/21 Time: 08:37 Principal diagnosis: CHF, possible HOCM Interval history: 81-year-old white female in bed in no acute distress. On oxygen via NC. Planning for JULEE later today to evaluate possible recurrence of HOCM and severe MR and TR. Daughter is in room and agrees to proceed. She does caution that the patient ended up on the ventilator the last time she underwent a procedure with sedation. Exam Vital signs and Labs for Last 24 Hours: Temp Pulse Resp BP Pulse Ox 98.6 F 62 16 126/72 91 L 07/02/21 08:00 07/02/21 08:00 07/02/21 08:00 07/02/21 08:00 07/02/21 08:00 Laboratory Results - last 24 hr 07/01/21 09:31: Troponin I 0.05 H 07/01/21 11:00: Specimen Source Left radial, O2 % 100% nrb, ABG pH 7.30 L, ABG pCO2 87.0 H, ABG pO2 84.4, ABG HCO3 41.4 H, ABG Total CO2 44.0 H, ABG O2 Saturation 96, ABG Base Excess 14.9 H, Dami Test Patient unable 07/01/21 12:46: Troponin I 0.05 H 07/01/21 16:01: Specimen Source Right radial, O2 % 70, ABG pH 7.35, ABG pCO2 85.2 H, ABG pO2 80.0, ABG HCO3 46.0 H, ABG Total CO2 48.6 H, ABG O2 Saturation 95, ABG Base Excess 20.4 H, Dami Test Patient unable, Vent Rate 20, Tidal Volume bipap 28/1207/01/21 20:00: Specimen Source Left brachial, O2 % 70, ABG pH 7.49 H, ABG pCO2 53.9 H, ABG pO2 81.0, ABG HCO3 40.0 H, ABG Total CO2 41.6 H, ABG O2 Saturation 97, ABG Base Excess 16.6 H, Dami Test Non applicable, Tidal Volume bipap 30/1207/02/21 05:25: Sodium 139, Potassium 3.2 L D, Chloride 92 L, Carbon Dioxide 45 H*, Anion Gap 5.2, BUN 28 H, Creatinine 0.80 D, Estimated Creat Clear 46, Estimated GFR 69, Est GFR ( Amer) 84 D, Glucose 85 D, Calcium 7.8 L, Magnesium 1.8 07/02/21 05:25: Total Bilirubin 1.7 H, Direct Bilirubin 0.3, Conjugated Bilirubin 0.0, Indirect Bilirubin 1.4 H, Unconjugated Bilirubin 1.5 H, AST 45 H, ALT 48, Alkaline Phosphatase 89, Total Protein 5.9 L, Albumin 3.1 L D, Triglycerides 64, Cholesterol 112 L, LDL Cholesterol Direct 50.63 L, VLDL Cholesterol 13, HDL Cholesterol 45, Cholesterol/HDL Ratio 2.5 07/02/21 05:32: WBC 10.7, RBC 3.20 L, Hgb 10.5 L, Hct 32.8 L, MCV 102.6 H, MCH 32.9 H, MCHC 32.0, RDW 20.5 H, Plt Count 182, MPV 8.1, Neut % (Auto) 84.1 H, Lymph % (Auto) 9.3 L, [place] % (Auto) 6.4, Eos % (Auto) 0.0 L, Baso % (Auto) 0.1, Neut # (Auto) 9.0 H, Lymph # (Auto) 1.0, [place] # (Auto) 0.7, Eos # (Auto) 0.0, Baso # (Auto) 0.0 I & O for Last 24 hours: Intake & Output 06/29/21 06/30/21 07/01/21 07/02/21 11:59 11:59 11:59 11:59 Intake Total 50 / 50 Output Total 2400 / 2400 Balance -2350 / -2350 Weight 145 lb 2 oz 142 lb - *Routine Respiratory Exam Present: decreased breath sounds, diminished air movement - *Routine Cardiovascular Exam Present: RRR, murmur Progress Note: A&P (1) Congestive heart failure Status: Acute (2) Respiratory failure with hypercapnia Status: Acute (3) S/P aortic valve replacement with bioprosthetic valve Status: Chronic (4) Acute respiratory failure with hypoxia Status: Acute (5) Pneumonia Status: Acute (6) Pulmonary hypertension Status: Acute (7) Tricuspid regurgitation Status: Acute (8) Altered mental status Status: Acute (9) CAD (coronary artery disease) Status: Chronic (10) HLD (hyperlipidemia) Status: Chronic (11) HOCM (hypertrophic obstructive cardiomyopathy) Status: Chronic (12) HTN (hypertension) Status: Chronic (13) 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 JULEE was planned for today but after reviewing the transthoracic echocardiogram, there is no need for a JULEE. There is no recurrence of the HOCM, the aortic valve is functioning well and the mitral regurgitation is mild. 2. History of aortic valve replacement with a bioprosthetic valve, funct
--- NOTE | 2021-07-02 09:12 | HMH.PULMPN ---
Internal Medicine - PN: Subj *Date: 07/02/21 *Time: 10:40 Interval history: No acute respiratory events overnight. Patient awake and admits significant improvement in her symptoms. Exam - Constitutional Constitutional:: Present: no acute distress, comfortable - HENMT Exam HENMT: Present: normocephalic, atraumatic - Eye Exam Eyes:: Present: normal appearance both eyes and related structures - Neck Exam Neck:: Present: normal visual inspection - Respiratory Exam Respiratory:: Present: able to speak in complete sentences, respiratory distress, crackles. Absent: wheezing - Cardiovascular Exam Cardiac:: Present: S1, S2 - GI Exam GI:: Present: soft, no hepatosplenomegaly - Skin Exam Skin: Present: warm. Absent: no rash - Neurological Exam Neurological: Present: alert, awake - Extremities Exam Extremities: Present: no cyanosis, no clubbing, edema Assessment and Plan (1) Congestive heart failure Status: Acute Qualifiers: Heart failure type: unspecified Heart failure chronicity: acute on chronic Qualified Code(s): I50.9 - Heart failure, unspecified Category: Medical Code(s): I50.9 - Heart failure, unspecified (2) Respiratory failure with hypercapnia Status: Acute Qualifiers: Chronicity: acute on chronic Qualified Code(s): J96.22 - Acute and chronic respiratory failure with hypercapnia Category: Medical Code(s): J96.92 - Respiratory failure, unspecified with hypercapnia (3) S/P aortic valve replacement with bioprosthetic valve Status: Chronic Category: Surgical Code(s): Z95.3 - Presence of xenogenic heart valve (4) Acute respiratory failure with hypoxia Status: Acute Category: Medical Code(s): J96.01 - Acute respiratory failure with hypoxia (5) Pneumonia Status: Acute Category: Medical Code(s): J18.9 - Pneumonia, unspecified organism (6) Pulmonary hypertension Status: Acute Category: Medical Code(s): I27.20 - Pulmonary hypertension, unspecified (7) Tricuspid regurgitation Status: Acute Category: Medical Code(s): I07.1 - Rheumatic tricuspid insufficiency (8) Altered mental status Status: Acute Qualifiers: Altered mental status type: unspecified Qualified Code(s): R41.82 - Altered mental status, unspecified Category: Medical Code(s): R41.82 - Altered mental status, unspecified (9) CAD (coronary artery disease) Status: Chronic Qualifiers: Coronary Disease-Associated Artery/Lesion type: [place] artery [place] vs. transplanted heart: [place] heart Associated angina: without angina Qualified Code(s): I25.10 - Atherosclerotic heart disease of [place] coronary artery without angina pectoris Category: Medical Code(s): I25.10 - Atherosclerotic heart disease of [place] coronary artery without angina pectoris (10) HLD (hyperlipidemia) Status: Chronic Qualifiers: Hyperlipidemia type: mixed hyperlipidemia Qualified Code(s): E78.2 - Mixed hyperlipidemia Category: Medical Code(s): E78.5 - Hyperlipidemia, unspecified (11) HOCM (hypertrophic obstructive cardiomyopathy) Status: Chronic Category: Medical Code(s): I42.1 - Obstructive hypertrophic cardiomyopathy (12) HTN (hypertension) Status: Chronic Qualifiers: Hypertension type: essential hypertension Category: Medical Code(s): I10 - Essential (primary) hypertension (13) 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
--- NOTE | 2021-07-02 09:33 | PC.NURSE ---
Spoke w/ [employer], Maximo. States they are waiting on BK @ this time, JULEE is on hold.
--- NOTE | 2021-07-02 10:58 | HMH.OTEV ---
OT Inpatient Evaluation Rehab OT IP Evaluation Start: 07/02/21 08:11 Freq: ONCE Status: Complete Protocol: Document 07/02/21 10:34 ANSHUL (Rec: 07/02/21 10:58 ANSHUL [id number]) Rehab OT IP Assessment Subjective History 81-year-old female with history of diastolic heart failure and coronary vascular disease as well as mild dementia who has had fairly good pulmonary status until approximately 4 weeks ago when she was diagnosed with a right middle lobe pneumonia. Admitted to [facility] and because of significant abnormality of the bronchus on CT scan was subjected to bronchoscopy, which fortunately revealed no evidence of malignancy. She recovered from this episode was discharged home but then presented to [facility] about 2 weeks ago with dyspnea, pneumonia symptoms and was admitted there for approximately 5 days . Diagnosed with diastolic heart failure, diuresed which per the daughter was successful resulted in hypokalemia and bradycardia, and was discharged home on a new oxygen requirement and antibiotics about 5 days ago. Initially did well, but was on steroids which her daughter said dramatically increased her p.o. intake of salty chips , sandwiches, etc. and she stated that yesterday she noticed that her mother had begun accumulating fluid on her ankles which is extremely unusual for her and began to have an increased oxygen requirement. This morning she had significant obtundation and she was brought to the ER. Found
--- NOTE | 2021-07-02 11:17 | HMH.PTEV ---
Physical Therapy Evaluation Rehab PT IP Evaluation Start: 07/02/21 08:11 Freq: ONCE Status: Active Protocol: Document 07/02/21 11:15 PHORNE (Rec: 07/02/21 11:17 PHORNE [id number]) Subjective/History History History 81 yowf adm to [facility] with CHF exac. She reports she lives with her spouse, no steps to enter the home, and she was independent using a RW for all mobility prior to adm. Subjective Subjective Pt reports no c/o this am. Rehab PT IP Eval Objective Appearance Patient Behavior Appropriate Patient Orientation Person,Place Difficulty following instructions none Speech Pattern Clear Ambulation Patient Able to Ambulate Yes Ambulation Observation IP General Gait Pattern Observation Wide Based Gait,Shuffling Step Ambulation Distance (feet) 30 Ambulation Assistive Device Rolling Walker Ambulation Ability Contact Guard/Hand Hold Balance Ability to Arise Able, uses arms to help Sitting Balance Steady, safe Standing Balance Steady, wide stance Dynamic Sitting Balance Ability Good Dynamic Standing Balance Ability Fair Transfers Bed Transfer Ability Contact Guard/Hand Hold Chair Transfer Ability Contact Guard/Hand Hold Sit to Stand Bed Transfer Ability Contact Guard/Hand Hold Sit to Stand Chair Transfer Ability Contact Guard/Hand Hold Rehab PT IP prob,goals,plan Problems Date of Evaluation: 07/02/21 PT IP Problems Bed Mobility,Transfers,Gait, Self care Rehab Potential Rehab Potential Good Plan PT Intervention Plan Bed Mobility,Transfers,Gait, Self care,Therapeutic Exercise PT Plan Frequency BID Duration LOS Discharge Goals Bed Transfer Ability Supervision/Stand by Sit to Stand Chair Transfer Ability Supervision/Stand by Ambulation Assistive Device Rolling Walker Ambulation Distance (feet) 50 Discharge Plan PT Discharge Plan Pt is appropriate to return home once medically stable with family assist. G -code Required No Eval Complexity Eval Charge Codes 48508 - Moderate Complexity PHYSICIAN CERTIFICATION: I certify the specified therapy services for Ivy Ge are required, authorized, and reviewed every 30 days.
--- NOTE | 2021-07-02 11:38 | PC.NURSE ---
Addendum entered by Sonia Maynard RN 07/02/21 12:05: Pt's daughter reports she had been put on honey thick liquids when she was at [facility] d/t [facility], relayed this to dietary. Original Note: Pt is not having JULEE per YOLI Billingsley. Family and patient made aware. Requesting orders for diet @ this time from PCP
--- NOTE | 2021-07-02 17:33 | PC.NURSE ---
No acute changes. Remains on 4 L O2 per nasal cannula. Bilat fine crackles noted upon auscultation of lungs, occasionally audible wheezes noted. A-Flutter on tely, controlled rate. Abdomen soft, non-tender w/ active BS in all quads. No BM this shift. Lowry to drain @ bedside, urine is ritesh/sediment. Dressing remains c/d/i to R sol. Pt is able to ambulate w/ assistance and use of rolling walker. Gait is unsteady and pt has poor balance. Safety in place. Family have been @ bedside throughout shift. She is currently sitting up in the recliner, tolerates activity well. No complaints voiced. Call frida w/in reach.
[2021-07-03] VITALS (10 sets, daily range): BP systolic 123–151; BP diastolic 69–82; PULSE 60–82; RESP 16–22; TEMP 36.5–37.1; O2SAT 91–97; BMI 28.2
[2021-07-03 05:55] LABS: Basophils % 0.2 % (0.1-2.0); Eosinophils # 0.1 K/mm3 (0.0-0.4); Hematocrit 34.5 % (37.0-47.0); Lymphocytes # 1.1 K/mm3 (0.7-4.5); Lymphocytes % 8.6 % (10-50); Mean Corpuscular HGB Conc 31.9 g/dL (31.8-35.4); Mean Corpuscular Hemoglobin 32.8 pg (27.0-31.2); Mean Corpuscular Volume 102.9 fl (81-99); Mean Platelet Volume 8.2 fl (7.4-10.4); Monocytes # 0.7 K/mm3 (0.1-1.0); Monocytes % 5.6 % (1.7-9.3); Neutrophils # 10.6 K/mm3 (1.8-7.8); Neutrophils % 84.7 % (37.0-80.0); Platelet Count 160 K/mm3 (142-424); Red Blood Count 3.35 M/mm3 (4.20-5.40); Red Cell Distribution Width 20.6 % (11.5-17.5); White Blood Count 12.5 K/mm3 (4.8-10.8)
[2021-07-03 06:05] LABS: Chloride 91 mmol/L (98-107); Potassium 3.5 mmoL/L (3.5-5.1); Sodium 137 mmol/L (136-145)
[2021-07-03 06:08] LABS: Blood Urea Nitrogen 30 mg/dl (7-17); Creatinine Clearance Estimated 45 mL/min (50-200); Estimated Glomerular Filt Rate 69 ml/min (>60); GFR (African American) 84 ML/MIN (>60)
[2021-07-03 06:09] LABS: Calcium 7.7 mg/dl (8.4-10.2); Glucose 86 mg/dl (74-100); Magnesium 1.7 mg/dl (1.6-2.3)
[2021-07-03 06:16] LABS: Anion Gap 4.5 mEq/L (5-15); Carbon Dioxide 45 mmol/L (22.0-30.0)
--- NOTE | 2021-07-03 08:39 | HMH.ACPN2 ---
Internal Medicine - PN: Subj *Date: 07/03/21 *Time: 08:39 Interval history: Patient did well overnight, has maintained oxygen saturations on nasal cannula. Feels good, her daughter notes that she is been up to the bathroom with very minimal support and no breathlessness. Exam Vital signs and Labs for Last 24 Hours: Temp Pulse Resp BP Pulse Ox 97.9 F 70 16 123/69 97 07/03/21 08:00 07/03/21 08:00 07/03/21 08:00 07/03/21 08:00 07/03/21 08:00 Laboratory Results - last 24 hr 07/03/21 05:40: WBC 12.5 H, RBC 3.35 L, Hgb 11.0 L, Hct 34.5 L, MCV 102.9 H, MCH 32.8 H, MCHC 31.9, RDW 20.6 H, Plt Count 160, MPV 8.2, Neut % (Auto) 84.7 H, Lymph % (Auto) 8.6 L, [place] % (Auto) 5.6, Eos % (Auto) 1.0, Baso % (Auto) 0.2, Neut # (Auto) 10.6 H, Lymph # (Auto) 1.1, [place] # (Auto) 0.7, Eos # (Auto) 0.1, Baso # (Auto) 0.0 07/03/21 05:40: Sodium 137, Potassium 3.5, Chloride 91 L, Carbon Dioxide 45 H*, Anion Gap 4.5 L, BUN 30 H, Creatinine 0.80, Estimated Creat Clear 45, Estimated GFR 69, Est GFR ( Amer) 84, Glucose 86, Calcium 7.7 L, Magnesium 1.7 I & O for Last 24 hours: Intake & Output 06/30/21 07/01/21 07/02/21 07/03/21 11:59 11:59 11:59 11:59 Intake Total 50 / 50 360 / 360 Output Total 2400 / 2400 1425 / 1425 Balance -2350 / -2350 -1065 / -1065 Weight 145 lb 2 oz 142 lb 140 lb 3 oz Microbiology Reports for the Last 24 Hours: Microbiology 07/01/21 06:50 Blood Blood Culture - Preliminary NO GROWTH AFTER 48 HOURS 07/01/21 06:50 Blood Blood Culture - Preliminary NO GROWTH AFTER 48 HOURS Narrative: Alert, pleasant, up in recliner. Lowry catheter draining clear yellow urine. Heart rate regular with holosystolic 3/6 murmur with no radiation. Lungs have minimal rhonchi in the bases. Abdomen soft and nontender, she has no ankle edema. Neurologically intact except for minimal memory loss but is globally weak but improving over exam from yesterday. Assessment and Plan (1) Congestive heart failure Status: Acute Qualifiers: Heart failure type: unspecified Heart failure chronicity: acute on chronic Qualified Code(s): I50.9 - Heart failure, unspecified Category: Medical Code(s): I50.9 - Heart failure, unspecified (2) Respiratory failure with hypercapnia Status: Acute Qualifiers: Chronicity: acute on chronic Qualified Code(s): J96.22 - Acute and chronic respiratory failure with hypercapnia Category: Medical Code(s): J96.92 - Respiratory failure, unspecified with hypercapnia (3) S/P aortic valve replacement with bioprosthetic valve Status: Chronic Category: Surgical Code(s): Z95.3 - Presence of xenogenic heart valve (4) Acute respiratory failure with hypoxia Status: Acute Category: Medical Code(s): J96.01 - Acute respiratory failure with hypoxia (5) Pneumonia Status: Acute Category: Medical Code(s): J18.9 - Pneumonia, unspecified organism (6) Pulmonary hypertension Status: Acute Category: Medical Code(s): I27.20 - Pulmonary hypertension, unspecified (7) Tricuspid regurgitation Status: Acute Category: Medical Code(s): I07.1 - Rheumatic tricuspid insufficiency (8) Altered mental status Status: Acute Qualifiers: Altered mental status type: unspecified Qualified Code(s): R41.82 - Altered mental status, unspecified Category: Medical Code(s): R41.82 - Altered mental status, unspecified (9) CAD (coronary artery disease) Status: Chronic Qualifiers: Coronary Disease-Associated Artery/Lesion type: [place] artery [place] vs. transplanted heart: [place] heart Associated angina: without angina Qualified Code(s): I25.10 - Atherosclerotic heart disease of [place] coronary artery without angina pectoris Category: Medical Code(s): I25.10 - Atherosclerotic heart disease of [place] coronary artery without angina pectoris (10) HLD (hyperlipidemia) Stat
--- NOTE | 2021-07-03 23:20 | PC.NURSE ---
Pt very confused at this time. Pt is refusing to take PO medications. Bed alarm on for safety. Call light within reach.
[2021-07-04] VITALS: BP 148/64; PULSE 44; PULSE 85; RESP 16; TEMP 36.8; O2SAT 95
[2021-07-04 04:00] VITALS: BP 130/65; PULSE 70; RESP 14; TEMP 36.7; O2SAT 92
[2021-07-04 05:41] VITALS: BMI 27.9
[2021-07-04 06:16] LABS: Chloride 94 mmol/L (98-107); Potassium 3.3 mmoL/L (3.5-5.1); Sodium 139 mmol/L (136-145)
[2021-07-04 06:19] LABS: Blood Urea Nitrogen 31 mg/dl (7-17); Calcium 7.8 mg/dl (8.4-10.2); Creatinine Clearance Estimated 44 mL/min (50-200); Estimated Glomerular Filt Rate 81 ml/min (>60); GFR (African American) 97 ML/MIN (>60); Glucose 86 mg/dl (74-100)
[2021-07-04 06:23] LABS: Basophils % 0.2 % (0.1-2.0); Eosinophils # 0.2 K/mm3 (0.0-0.4); Eosinophils % 2.3 % (0.1-12.0); Hematocrit 34.6 % (37.0-47.0); Hemoglobin 10.8 g/dL (12.2-16.2); Lymphocytes # 1.2 K/mm3 (0.7-4.5); Lymphocytes % 11.5 % (10-50); Mean Corpuscular HGB Conc 31.3 g/dL (31.8-35.4); Mean Corpuscular Hemoglobin 32.2 pg (27.0-31.2); Mean Corpuscular Volume 102.7 fl (81-99); Mean Platelet Volume 7.7 fl (7.4-10.4); Monocytes # 0.6 K/mm3 (0.1-1.0); Monocytes % 5.9 % (1.7-9.3); Neutrophils % 80.1 % (37.0-80.0); Platelet Count 160 K/mm3 (142-424); Red Blood Count 3.37 M/mm3 (4.20-5.40); Red Cell Distribution Width 20.4 % (11.5-17.5)
[2021-07-04 06:30] VITALS: PULSE 68; PULSE 70; O2SAT 93
[2021-07-04 06:42] LABS: Anion Gap 0.3 mEq/L (5-15); Carbon Dioxide 48 mmol/L (22.0-30.0)
--- NOTE | 2021-07-04 07:29 | PC.NURSE ---
Pt has become more pleasant and cooperative later in shift. Pt continues to be oriented only to person. Pt has pulled out IV and tried to get out of bed multiple times. Bed alarm on for safety. Call light within reach.
[2021-07-04 08:00] VITALS: BP 132/66; PULSE 70; PULSE 76; RESP 16; TEMP 36.6; O2SAT 94
--- NOTE | 2021-07-04 08:26 | HMH.DCSUM ---
General - General Admission date:: 07/01/21 Discharge date: 07/04/21 HPI HPI: 81-year-old female with history of diastolic heart failure and coronary vascular disease as well as mild dementia who has had fairly good pulmonary status until approximately 4 weeks ago when she was diagnosed with a right middle lobe pneumonia. Admitted to [facility] and because of significant abnormality of the bronchus on CT scan was subjected to bronchoscopy, which fortunately revealed no evidence of malignancy. She recovered from this episode was discharged home but then presented to [facility] about 2 weeks ago with dyspnea, pneumonia symptoms and was admitted there for approximately 5 days. Diagnosed with diastolic heart failure, diuresed which per the daughter was successful resulted in hypokalemia and bradycardia, and was discharged home on a new oxygen requirement and antibiotics about 5 days ago. Initially did well, but was on steroids which her daughter said dramatically increased her p.o. intake of salty chips, sandwiches, etc. and she stated that yesterday she noticed that her mother had begun accumulating fluid on her ankles which is extremely unusual for her and began to have an increased oxygen requirement. This morning she had significant obtundation and she was brought to the ER. Found to have a respiratory acidosis and placed on BiPAP, found to have elevated BNP levels, very minimally elevated troponin levels but otherwise normal renal function. Chest x-ray showed clearing of prior infiltrates but some evidence of fluid overload. She is been admitted to second floor for further management. Hospital Course Hospital Course: Patient was admitted. Placed on BiPAP because of her hypercapnia and respiratory acidosis. She was aggressively diuresed with excellent volume output and over the next 3 days lost 7 pounds of fluid per bedside scales. She was able to be weaned off of BiPAP onto nasal cannula oxygen as she had improved mental status with improvement of her hypercapnia. Pulmonary was consulted. Recommended Zosyn and continuing treatment of volume overload/diastolic CHF. Cardiology was consulted as she is a patient in their clinic. Echocardiogram was performed which revealed no recurrence of her hokum condition that had previously been noted and had evidence of diastolic dysfunction. Metoprolol, furosemide were continued. Verapamil was added cautiously. Patient's blood pressure tolerated this well and she continued to diurese well. This morning she is doing well, oxygen requirement is 2.5 L with mid 90% O2 saturations. Interestingly, she had had low oxygen levels at home and it had to be titrated up to 4 L but her daughter tells me today that the [employer] equipment company came by yesterday and determined that her O2 machinery at home was not working properly and it has now been fixed. This morning she doing well, up, alert, doing activities of daily living with very minimal shortness of air and her swelling is improving. Plan we did discharge home today with Lasix, continued beta-blockers and her other medications. We will initiate verapamil therapy as an outpatient as she has had in the hospital. I will see her in follow-up on in my office. At that point we will order sleep study to see if nighttime BiPAP or CPAP would help with her hypercapnia state. Given lack of evidence of infectious etiologies of lung disease we will hold on antibiotics, also no steroids given the fact that she is not wheezing and she is responded well to diuretics. Objective Vital signs: Temp Pulse Resp BP Pulse Ox 98.0 F 70 14 130/65 92 L 07/04/21 04:00 07/04/21 04:00 07/04/21 04:00 07/04/21 04:00 07/04/21 04:00 no acute distress - *Routine HEENT Exam Head: Present: normocephalic Eye: Present: EOMI, PERRL ENT: Present: mucous membranes moist - *Routine Neck Exam Present: supple - *Routine Respir
== END 2021-07-04 10:45 | disposition home or self-care (01) | DRG 291 ==
LOC: ER 06:31 → 2ND 09:01
PROVIDERS: Internal Medicine Adolescent Medicine; Internal Medicine Pulmonary Disease; Nurse Practitioner Family; Admitting Provider Internal Medicine Adolescent Medicine; Emergency Provider Emergency Medicine; PCP Internal Medicine Adolescent Medicine; Visit Provider Internal Medicine Adolescent Medicine
DX: I11.0 Hypertensive heart disease with heart failure (principal); J96.22 Acute and chronic respiratory failure with hypercapnia; I50.33 Acute on chronic diastolic (congestive) heart failure; J96.01 Acute respiratory failure with hypoxia; I42.1 Obstructive hypertrophic cardiomyopathy; Z95.3 Presence of xenogenic heart valve; I27.20 Pulmonary hypertension, unspecified; I07.1 Rheumatic tricuspid insufficiency; I25.10 Atherosclerotic heart disease of native coronary artery without angina pectoris; E78.5 Hyperlipidemia, unspecified; Z95.1 Presence of aortocoronary bypass graft; Z95.2 Presence of prosthetic heart valve; R77.8 Other specified abnormalities of plasma proteins; F03.90 Unspecified dementia, unspecified severity, without behavioral disturbance, psychotic disturbance, mood disturbance, and anxiety; Z99.81 Dependence on supplemental oxygen; J44.9 Chronic obstructive pulmonary disease, unspecified
CPT/HCPCS: 36415; 51702; 71045; 80048; 80061; 80076; 81001; 82803; 83605; 83735; 83880; 84436; 84443; 84484; 85025; 85610; 85651; 86140; 87040; 87081; 93005; 93306; 94640; 94660; 96374; 96375; 97116; 97162; 97165; 97530; 97535; 99285; C9803; J2543; U0003; U0005

== ENCOUNTER 2021-07-12 10:30 | Emergency (ER) | payer MEDICARE, SELFPAY ==
[2021-07-12 10:31] VITALS: BP 141/59; PULSE 61; RESP 18; TEMP 36.4; O2SAT 92; BMI 30.2
--- NOTE | 2021-07-12 10:42 | CT_ITS ---
FINAL REPORT CLINICAL HISTORY: right sided weakness// stroke protocol COMPARISON: 04/27/2020 FINDINGS: Axial images of the head were obtained without contrast. Coronal reformatted images were also obtained. This study was performed with techniques to keep radiation doses as low as reasonably achievable (ALARA). Individualized dose reduction techniques using automated exposure control or adjustment of mA and/or kV according to the patient''s size were employed. There is generalized age-appropriate atrophy. Periventricular low-attenuation areas are seen consistent with moderate to severe chronic ischemic changes. This is worse as compared to the prior exam. There is low attenuation focus in the right cerebellar hemisphere measuring 19 mm. There is low attenuation in the medial left temporal lobe measuring 19 mm. Findings are consistent with acute to subacute infarcts which are new since the prior exam. There is low attenuation in the midbrain and paulino which may also represent infarcts. IMPRESSION: Atrophy and moderate to severe periventricular chronic ischemic changes. Acute to subacute infarcts in the right cerebellar hemisphere and medial left temporal lobe. Possible infarcts in the midbrain and paulino. MRI is recommended for further evaluation. The physician in the emergency room was notified of these findings at 11:04 AM on 07/12/2021. Reviewed, Interpreted and Dictated by Js Valentin III, MD Transcribed by Isidra Prajapati Authenticated by Js Valentin III, MD on 07/12/2021 11:04:50 AM [facility]
--- NOTE | 2021-07-12 10:44 | HMH.EDGENADL ---
ED Disposition Clinical Impression: CVA (cerebral vascular accident) Disposition: Xfer Critical Access Hosp Condition on Discharge: Fair Referrals: Lm Bustillo MD [Primary Care Provider] - Forms: Transfer Record - ED Time of Disposition: 12:20 - Critical Care Critical Care Time: Yes Attestation: On , the high probability of a clinically significant, sudden or life threatening deterioration of the following system(s) required my full and direct attention, intervention and personal management. The time I documented below is in addition to time spent performing reported procedures but includes the following listed in this critical care notation. Total Critical Care Time: 30 Vital system(s) involved:: Central Nervous System My critical care processes included: Assessment & monitoring of V/S, Initial and Re-exams, Data Review/Interpretation, Coordinating Care Medical Decision Making - Medical Records Medical records reviewed: Yes: I reviewed the patient's medical records. - [place] Inquiry Pt receiving controlled substance: No Vital Signs: 07/12/21 10:31 Temperature 97.5 F L Temperature Source Oral Pulse Rate [Left Radial] 61 Respiratory Rate 18 Blood Pressure [Right Arm] 141/59 H Blood Pressure Mean [Right Arm] 86 Blood Pressure Source [Right Arm] Automatic Cuff Blood Pressure Position [Right Arm] Sitting 02 Sat by Pulse Oximetry 92 L Oxygen Delivery Method Nasal Cannula Oxygen Flow Rate (LPM) 5 - Lab Data Lab results reviewed: Yes: I reviewed the patient's lab results. Lab Results 07/12/21 11:15: WBC 8.0, RBC 3.48 L, Hgb 11.4 L, Hct 35.6 L, MCV 102.5 H, MCH 32.8 H, MCHC 32.0, RDW 19.4 H, Plt Count 263, MPV 7.5, Neut % (Auto) 80.6 H, Lymph % (Auto) 11.3, [place] % (Auto) 6.9, Eos % (Auto) 0.7, Baso % (Auto) 0.6, Neut # (Auto) 6.5, Lymph # (Auto) 0.9, [place] # (Auto) 0.6, Eos # (Auto) 0.1, Baso # (Auto) 0.0 07/12/21 11:15: PT 11.1, INR 0.98, APTT 23.3 07/12/21 11:15: Sodium 137, Potassium 3.6, Chloride 92 L, Carbon Dioxide 42 H*, Anion Gap 6.6, BUN 32 H, Creatinine 0.80, Estimated Creat Clear 48, Estimated GFR 69, Est GFR ( Amer) 84, Glucose 98, Calcium 8.3 L, Total Bilirubin 1.3, AST 54 H, ALT 53, Alkaline Phosphatase 119, Troponin I 0.10 H, Total Protein 6.7, Albumin 3.4 L, Globulin 3.3 H, Albumin/Globulin Ratio 1.0 L Result diagrams: 07/12/21 11:15 07/12/21 11:15 Orders (Tests/Meds): ED MEDICATIONS Discontinued Medications Generic Name Dose Route Start Last Admin Trade Name Freq PRN Reason Stop Dose Admin Aspirin 325 mg 07/12/21 11:28 07/12/21 12:15 Aspirin 325mg Tablet PO 07/12/21 11:29 325 mg ONCE ONE Administration Iopamidol 75 ml 07/12/21 11:30 07/12/21 11:31 Iopamidol-370 (76%);100ml Bottle IV 07/12/21 11:31 75 ml ONCE ONE Administration Sodium Chloride 50 ml 07/12/21 11:30 07/12/21 11:31 0.9 % Sodium Chloride 50 Ml Vial IV 07/12/21 11:31 50 ml ONCE ONE Administration Sodium Chloride 10 ml 07/12/21 11:30 07/12/21 11:31 Sodium Chloride 0.9% 10ml Syr (Rad Only) IV 07/12/21 11:31 10 ml ONCE ONE Administration ORDERS Category Date Time Status CXR --portable [XR chest portable] Stat Exams 07/12/21 11:27 Taken Troponin I Q3H Lab 07/12/21 13:45 Ordered Troponin I Q3H Lab 07/12/21 16:45 Ordered ECG Request by /Nse Stat Y 07/12/21 11:29 Ordered Medical Decision Narrative: Miss Ge has multiple comorbidities including CABG 3 vessel, HTN, HLD, afib who presents with (R) sided hemiparesis. Patient LKN 9P 07/11. On exam NIH scale 0, but patient reports feeling a heaviness of RUQ and RLQ. Patient is GCS 15. Differentials to consider include: Acute intracranial hemorrhage, acute infarct, metabolic/ electrolyte derangement. Basic labs, Trop, PT/PTT pending, CXR, ECG. CT head and CTA head and neck concerning for multiple infarcts acute on subacute located in temporal lobe (R), paulino and midbrain and (L) cerebellar. Patient is out of th
--- NOTE | 2021-07-12 11:06 | CT_ITS ---
FINAL REPORT TECHNIQUE: Thin section axial CT with IV contrast supplemented with multiplanar reconstruction under CT angiogram protocol. 3-D reconstructions were performed. This study was performed with techniques to keep radiation doses as low as reasonably achievable (ALARA). Individualized dose reduction techniques using automated exposure control or adjustment of mA and/or kV according to the patient''s size were employed. CLINICAL HISTORY: right sided weakness/ stroke protocol FINDINGS: The patient is significantly tilted in the scanner. The distal internal carotid and basilar arteries are patent without evidence of significant stenosis. The proximal anterior, middle and posterior cerebral arteries are patent without evidence of significant stenosis or major branch occlusion. There is no evidence of aneurysm or vascular malformation. IMPRESSION: No evidence of significant stenosis or major branch occlusion. Authenticated by Js Valentin III, MD on 07/12/2021 11:50:00 AM [facility]
--- NOTE | 2021-07-12 11:06 | CT_ITS ---
FINAL REPORT TECHNIQUE: Thin section axial CT with IV contrast supplemented with multiplanar reconstruction under CT angiogram protocol. This study was performed with techniques to keep radiation doses as low as reasonably achievable (ALARA). Individualized dose reduction techniques using automated exposure control or adjustment of mA and/or kV according to the patient''s size were employed. NASCET criteria was utilized during interpretation. CLINICAL HISTORY: right sided weakness/ stroke protocol FINDINGS: Some of the images are degraded by motion artifact. Aortic arch: Arch shows no significant narrowing. Great vessel origins are widely patent. Right carotid: Calcified plaque is noted at the level of the carotid bulb. There is no evidence of significant stenosis or occlusion. Left carotid: Calcified plaque is noted at the level of the carotid bulb. Motion artifact is noted. There is no evidence of significant stenosis or occlusion. Vertebral: The vertebral arteries are codominant. No significant stenosis is present. IMPRESSION: Motion artifact at the level of the carotid bulbs which decreases sensitivity. Calcified plaque but without evidence of significant stenosis or major branch occlusion. Authenticated by Js Valentin III, MD on 07/12/2021 11:52:20 AM [facility]
--- NOTE | 2021-07-12 11:06 | PC.NURSE ---
I spoke with radiologist Dr. Valentin about head CT report and he advised there appeared to be multiple new infarcts on the CT head areas included: right cerebral, medial left temporal, and possible brain stem. He advised MRI needed to confirm. I immediately reported these findings to Dr. Rebolledo who advised she was going to order a stat CTA and did not want to want on the lab results. I notified rad pt needed STAT CTA.
--- NOTE | 2021-07-12 11:12 | HMH.ITSTN ---
angio head/neck was ordered// er Dr Rebolledo wants it done stat without labs back. They are sending her to another hospital. patient has had contrast before per daughter and did fine
--- NOTE | 2021-07-12 11:18 | PC.NURSE ---
Dr Rebolledo speaking with Dr Martinez at
--- NOTE | 2021-07-12 11:21 | PC.NURSE ---
Pt in rad at this time. 20G left AC established
--- NOTE | 2021-07-12 11:25 | PC.NURSE ---
Dr Rebolledo is speaking with [facility] stroke team at this time
[2021-07-12 11:26] LABS: Basophils % 0.6 % (0.1-2.0); Eosinophils # 0.1 K/mm3 (0.0-0.4); Eosinophils % 0.7 % (0.1-12.0); Hematocrit 35.6 % (37.0-47.0); Hemoglobin 11.4 g/dL (12.2-16.2); Lymphocytes # 0.9 K/mm3 (0.7-4.5); Lymphocytes % 11.3 % (10-50); Mean Corpuscular Hemoglobin 32.8 pg (27.0-31.2); Mean Corpuscular Volume 102.5 fl (81-99); Mean Platelet Volume 7.5 fl (7.4-10.4); Monocytes # 0.6 K/mm3 (0.1-1.0); Monocytes % 6.9 % (1.7-9.3); Neutrophils # 6.5 K/mm3 (1.8-7.8); Neutrophils % 80.6 % (37.0-80.0); Platelet Count 263 K/mm3 (142-424); Red Blood Count 3.48 M/mm3 (4.20-5.40); Red Cell Distribution Width 19.4 % (11.5-17.5)
--- NOTE | 2021-07-12 11:27 | XR_ITS ---
FINAL REPORT CLINICAL HISTORY: stroke protocol // chest xray for transport FINDINGS: A single view of the chest was obtained. The heart is enlarged. The patient is status post median sternotomy. There are small pleural effusions. There is bibasilar atelectasis or pneumonia. There is pulmonary vascular congestion. . IMPRESSION: Bibasilar atelectasis or pneumonia with small pleural effusions and pulmonary vascular congestion. Reviewed, Interpreted and Dictated by Js Valentin III, MD Transcribed by Isidra Prajapati Authenticated by Js Valentin III, MD on 07/12/2021 12:38:[address] [facility]
[2021-07-12 11:30] LABS: Chloride 92 mmol/L (98-107); Potassium 3.6 mmoL/L (3.5-5.1); Sodium 137 mmol/L (136-145)
[2021-07-12 11:33] LABS: Alanine Aminotransferase 53 U/L (12-78); Albumin Level 3.4 g/dl (3.5-5.0); Alkaline Phosphatase 119 U/L (38-126); Aspartate Amino Transferase 54 U/L (14-36); Bilirubin,Total 1.3 mg/dl (0.2-1.3); Blood Urea Nitrogen 32 mg/dl (7-17); Calcium 8.3 mg/dl (8.4-10.2); Creatinine Clearance Estimated 48 mL/min (50-200); Estimated Glomerular Filt Rate 69 ml/min (>60); GFR (African American) 84 ML/MIN (>60); Globulin 3.3 g/dL (1.3-3.2); Glucose 98 mg/dl (74-100); Total Protein,Serum 6.7 g/dl (6.3-8.2)
[2021-07-12 11:34] LABS: Activated Partial Thrombo Time 23.3 seconds (22.8-30.6); INR 0.98 (0.9-1.1); Prothrombin Time 11.1 seconds (10.1-12.5)
[2021-07-12 11:41] LABS: Anion Gap 6.6 mEq/L (5-15); Carbon Dioxide 42 mmol/L (22.0-30.0)
--- NOTE | 2021-07-12 11:45 | PC.NURSE ---
report given to [facility]
--- NOTE | 2021-07-12 11:48 | PC.NURSE ---
Notified Liu of transfer. Advised as soon as other truck free'd up they would be up.
[2021-07-12 12:00] VITALS: BP 146/80; PULSE 62; RESP 16; O2SAT 96
--- NOTE | 2021-07-12 12:01 | PC.NURSE ---
Dr. max at bedside, explaining to patient and family condition and why patient is being transferred at this time.
--- NOTE | 2021-07-12 12:05 | ECG_ITS ---
APPROVED REPORT Exam: Resting ECG HR:67 bpm ECG Measurements Heart Rate 67 AXES QRSd 170 QRS -16 QT 487 T 136 QTc 502 Conclusion ATRIAL FLUTTER/TACHYCARDIA LEFT BUNDLE BRANCH BLOCK [120+ ms QRS DURATION, 80+ ms Q/S IN V1/V2, 85+ ms R IN I/aVL/V5/V6] ABNORMAL ECG UNCONFIRMED REPORT Electronically signed by : Lm Bustillo MD 07/16/2021 16:12:44
--- NOTE | 2021-07-12 12:30 | PC.NURSE ---
Patient leaving with [place] at this time
[2021-07-12 12:32] LABS: Coronavirus 19, PCR Not Detected (NotDetected); Influenza A, PCR Not Detected (NotDetected); Influenza B, PCR Not Detected (NotDetected)
[2021-07-12 12:33] VITALS: BP 141/77; PULSE 70; RESP 16; TEMP 36.7; O2SAT 98
== END 2021-07-12 12:35 | disposition short-term general hospital (02) ==
PROVIDERS: Emergency Provider Student in an Organized Health Care Education/Training Program; PCP Internal Medicine Adolescent Medicine
DX: I63.89 Other cerebral infarction (principal); G81.91 Hemiplegia, unspecified affecting right dominant side; I10 Essential (primary) hypertension; I48.0 Paroxysmal atrial fibrillation; Z95.1 Presence of aortocoronary bypass graft; Z95.2 Presence of prosthetic heart valve; E78.5 Hyperlipidemia, unspecified; R29.702 NIHSS score 2
CPT/HCPCS: 70450; 70496; 70498; 71045; 80053; 84484; 85025; 85610; 85730; 93005; 99285; C9803; Q9967; U0003; U0005